=== PATIENT | male | born 1955 | race Caucasian/White ===

== ENCOUNTER 2021-11-11 19:18 | Inpatient (IN) ==
[2021-11-11 19:49] LABS: POC Calcium, Ionized 1.2 (1.16-1.32); POC Creatinine 1.5 (0.6-1.2); POC Potassium 4.4 (3.3-5.1)
[2021-11-11] MEDS ORDERED: SODIUM CHLORIDE 3 % 150 ML IV SCH (20:15)
[2021-11-11] MEDS ORDERED: SODIUM CHLORIDE 3 % 100 ML IV SCH (20:35)
[2021-11-11] MEDS ORDERED: LORazepam 2 MG/ML VIAL IV ONE (20:39)
[2021-11-11] MEDS ORDERED: LORazepam 2 MG/ML VIAL ONE ×2 (20:40→23:45)
[2021-11-11 20:42] LABS: Basophils # (Auto) 0.05 K/mcL (0.00-0.30); Basophils % (Auto) 0.6 % (0.0-2.0); Eosinophils # (Auto) 0.05 K/mcL (0.00-0.70); Eosinophils % (Auto) 0.6 % (0.0-7.0); Hematocrit 31.6 % (40.1-51.0); Hemoglobin 10.5 g/dL (13.7-17.5); Lymphocytes # (Auto) 0.75 K/mcL (1.50-4.80); Lymphocytes % (Auto) 8.7 % (15.5-49.0); Mean Cell Volume 94.9 fL (80.0-100.0); Mean Corpuscular HGB Conc 33.2 g/dL (31.0-36.0); Mean Platelet Volume 9.5 fL (7.4-10.4); Monocytes # (Auto) 1.23 K/mcL (0.10-0.90); Monocytes % (Auto) 14.2 % (1.0-12.0); Neutrophils % (Auto) 75.9 % (38.0-78.0); Platelet Count 259 K/mcL (140-440); RBC 3.33 M/mcL (4.63-6.08); Red Cell Distribution Width 11.9 % (11.5-14.5); WBC 8.7 K/mcL (4.5-11.0)
--- NOTE | 2021-11-11 20:47 | Cat Scan Report ---
INDICATION: fall, AMS, hyponatremia COMPARISON: None. TECHNIQUE: Axial noncontrast-enhanced images through the brain. Sagittally and coronally reformatted images. FINDINGS: Cerebral hemispheres:Negative. No intra-axial abnormality. No intra-axial hematoma. No localized mass effect. There is cerebral atrophy with prominent ventricles for age. Brainstem and cerebellum:No intra-axial abnormality Extra-axial:No acute hemorrhage. No subdural or epidural hematoma. No subarachnoid hemorrhage. Basilar cisterns are normal Calvarial:No calvarial fracture. No lytic lesion Temporal bones are negative. No destructive lesions Soft tissue, orbits, sinuses:Orbits and visualized facial soft tissues and paranasal sinuses are negative IMPRESSION: Negative post trauma brain CT scan The exam was performed using radiation dose optimization techniques including, but not limited to, automated exposure control, adjustment of the mA and/or kV according to patient size and use of iterative reconstruction technique. Interpreted and Authenticated by: Manohar Burciaga 11/11/21
--- NOTE | 2021-11-11 20:51 | Cat Scan Report ---
INDICATION: fall, AMS COMPARISON: None. TECHNIQUE: Axial thin section images through the cervical spine. Sagittally and coronally reformatted images. The exam was performed using radiation dose optimization techniques including, but not limited to, automated exposure control, adjustment of the mA and/or kV according to patient size and use of iterative reconstruction technique. FINDINGS: Previous anterior and posterior spinal fusion from C5 through C7. Anterior dissecting medially and fusion performed with disc spacers at C5-6 and C6-7. There is an anterior fusion plate from C5 through C7. Hardware is intact without fracture. Patient has also undergone posterior spinal fusion bilateral rods and screws Vertebral bodies, spinous processes:No vertebral body or spinous process fracture. No acute abnormality. Alignment is anatomic without anterolisthesis Normal odontoid process. No fracture. Occipital condyles and C1 are negative. No atlantoaxial subluxation. Facets:No perched or locked facet. No facet complex fracture. Disc spaces:Severe degenerative disc narrowing at C7-T1 Temporal bones:Negative. No basilar skull fracture Cervical soft tissues:Negative. No prevertebral soft tissue swelling. No focal soft tissue mass or acute abnormality Lung apices:No pneumothorax. No pulmonary contusion. IMPRESSION: 1. Previous anterior discectomy and spinal fusion from C5 through C7. Bilateral posterior fusion from C5 through C7. 2. Severe degenerative disc disease at C7-T1 3. No cervical spine fracture Interpreted and Authenticated by: Manohar Burciaga 11/11/21
[2021-11-11 20:59] LABS: Alcohol, Blood < 10.0 mg/dL; Alcohol,Blood < 0.010 gm/dL (<0.010)
[2021-11-11 21:07] LABS: Acetaminophen < 5.0 ug/mL; Salicylate < 0.3 mg/dL
[2021-11-11 21:18] LABS: ALT/SGPT 88 U/L (<40); AST/SGOT 89 U/L (<40); Albumin 4.4 gm/dL (3.2-5.2); Albumin/Globulin Ratio 2.1 (1.0-2.3); Alkaline Phosphatase 68 U/L (39-117); Bilirubin,Total 0.8 mg/dL (0.1-1.0); Blood Urea Nitrogen 14 mg/dL (8-23); Calcium 9.8 mg/dL (8.6-10.4); Carbon Dioxide 18 mmol/L (22-30); Chloride 73 mmol/L (96-108); Globulin 2.1 gm/dL (2.2-3.7); Glomerular Filtration Rate 47; Glucose 132 mg/dL (70-105)
--- NOTE | 2021-11-11 21:23 | XRay Report ---
INDICATION: fall, hand injury TECHNIQUE: PA, oblique, lateral right hand COMPARISON: None. FINDINGS: Suboptimal examination as this patient was unable to cooperate. Fractures of the distal right fourth and fifth metacarpals with volar angulation deformity. Chronicity is not certain. Clinical correlation is necessary. There is an intra-articular fracture of the proximal and dorsal aspects of the right fifth middle phalanx. Findings are consistent with acute fracture. IMPRESSION: 1. Chip fracture of the proximal and dorsal aspects of the right fifth middle phalanx 2. Fractures of the right fourth and fifth metacarpals with volar angulation. Chronicity is not certain Interpreted and Authenticated by: Manohar Burciaga 11/11/21
--- NOTE | 2021-11-11 21:24 | XRay Report ---
INDICATION: L shoulder pain TECHNIQUE: AP internal and external rotation, Y views COMPARISON: None. FINDINGS: Superior decentering of the left humeral head consistent with rotator cuff degeneration. No acute fracture. No glenohumeral dislocation. Distal clavicle has been resected consistent with Tyree procedure IMPRESSION: No acute fracture Interpreted and Authenticated by: Manohar Burciaga 11/11/21
[2021-11-11 21:28] LABS: Appearance,Urine CLEAR (Clear); Bilirubin,Urine Negative (Negative); Color,Urine YELLOW; Culture Indicated,Urine No; Glucose,Urine (UA) Negative (Negative); Ketones,Urine 20 mg/dL (Negative); Leukocyte Esterase,Urine 25 /uL (Negative); Nitrate,Urine Negative (Negative); Protein,Urine 100 mg/dL (Negative); Specific Gravity,Urine 1.005 (1.000-1.035); Urine Blood 0.03 mg/dL (Negative); Urine RBC 0 /hpf (0-3); Urine Squamous Epithelial Cell 0 /hpf (0-4); Urine WBC 5 /hpf (0-4); Urobilinogen,Urine Negative
[2021-11-11 21:33] LABS: Amphetamine Screen,Urine None detected; Barbiturate Screen,Urine None detected; Benzodiazepines Screen,Urine None detected; Cannabinoid Screen,Urine Suspect Positive; Cocaine Screen,Urine None detected; Opiate Screen,Urine None detected; Oxycodone, Urine Screen None detected; Phencyclidine Screen,Urine None detected
[2021-11-11] MEDS ORDERED: SENNOSIDES 1 TABLET PO PRN (21:35)
[2021-11-11] MEDS ORDERED: ONDANSETRON 4 MG/2 ML VIAL IV PRN (21:35)
--- NOTE | 2021-11-11 21:48 | Internal Med History&Physical ---
HPI History of Present Illness Patient information: Note initiated : 11/11/21 at 9:42 pm Service Date, if different from initiated Date: [as sabove] Patient: Isaac Russo a 66 y/o M admitted on for falls, weakness. Chief Complaint: [ALOC] Chief complaint: Encephalopathy History of present illness: Mr. Russo is a 66 year old M with a past medical history significant for chronic opioid use disorder, suspected alcohol abuse, hypertension, and obstructive lung disease who presents to the hospital with 1 month history of weakness and multiple falls. History was obtained secondhand from chart review, nursing and ER staff as the patient was somnolent and his speech was unintelligible. There was also concerns that he may have alcohol withdrawal and had 2 seizures while he presented to the ER. On presentation he was hemodynamically stable and afebrile. Of note, he was found to have a critical sodium of 113. The patient's creatinine was 1.3. The hospitalist service was asked admit the patient to the ICU for further management and evaluation of his suspected alcohol withdrawal in the setting of severe hyponatremia. Review of Systems ROS unobtainable: due to mental status PFSH PFSH All Active Problems (Updated 11/11/21 @ 21:46 by Altagracia Baez MD) BAMBI (acute kidney injury) (Acute) Lactic acidosis (Acute) Toxic metabolic encephalopathy (Acute) Acute dehydration (Acute) Acute hyponatremia (Acute) Seizure (Acute) Acute alteration in mental status (Acute) [facility] prescription opiate use (Chronic) Opioid dependence (Chronic) Chronic pain (Chronic) Primary generalized (osteo)arthritis (Chronic) Monoclonal gammopathy (Chronic) Abdominal hernia (Chronic) Mixed hyperlipidemia (Chronic) Dermatitis, seborrheic (Chronic) Deviated nasal septum (Chronic) Edema (Chronic) Shoulder pain, bilateral (Chronic) Left lumbar radiculopathy (Chronic) Right cervical radiculopathy (Chronic) Cramp of limb (Chronic) Rib pain on left side (Chronic) Elevated d-dimer (Chronic) Anemia (Chronic) Hyponatremia (Chronic) Elevated troponin (Chronic) Near syncope (Chronic) Depressed mood (Chronic) Lumbar post-laminectomy syndrome (Chronic) Low back pain (Chronic) Hypomagnesemia (Chronic) Vitamin D deficiency (Chronic) Benign prostatic hyperplasia without lower urinary tract symptoms (Chronic) Generalized anxiety disorder (Chronic) Alcohol abuse (Chronic) Mild recurrent major depression (Chronic) Pain in right leg (Chronic) Chronic kidney disease, stage 3 (moderate) (Chronic) 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) Tinea capitis (Chronic) Numbness and tingling of both upper extremities while sleeping (Chronic) Neck pain (Chronic) Interscapular pain (Chronic) Internal thrombosed hemorrhoids (Chronic) Disorder of tendon of biceps (Chronic) Disorder of rotator cuff (Chronic) Constipation (Chronic) Cervical radicular pain (Chronic) 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) Spinal stenosis in cervical region (Chronic) Stomach ulcer (Chronic) Hypertension, essential (Chronic) Asthma (Chronic) Acid reflux (Chronic) Medical History (Updated 11/11/21 @ 21:46 by Altagracia Baez MD) Abdominal hernia Acid reflux 1996 Alcohol abuse Anemia Arthropathy of shoulder region Asthma Since 4 years old Benign prostatic hyperplasia without lower urinary tract symptoms Cervical fusion syndrome Cervical radicular pain Chronic kidney disease, stage 3 (moderate) Chronic pain Constipation Cramp of limb Depressed mood Dermatitis, seborrheic Deviated nasal septum Disorder of rotator cuff Disorder of tendon of biceps Edema Elevated d-dimer Elevated troponin Generalized anxiety disorder Hypertension, essential Hypomagnesemia Hyponatremia Internal thrombosed hemorrhoids Interscapular pain Left lumbar radiculopathy manager long term care prescription opiate use Low back pain Lumbar post-laminectomy syndrome Mild recurrent major depression Mixed hyperlipidemia Monoclonal gammopathy Near syncope Neck pain Numbness and tingling of both upper extremities while sleeping Opioid dependence Pain in right leg Primary generalized (osteo)arthritis Rib pain on left side Right cervical radiculopathy Shoulder pain, bilateral Spinal stenosis in cervical region Stenosis of cervical spine with myelopathy Stomach ulcer Tinea capitis Vitamin D deficiency Surgical History H/O colonoscopy 11/2012 Dr. Luan STEV[place] in [place] H/O laminectomy 04/1979 L4-5 due to paralysis/pain left leg 02/1989 L4-5 due to paralysis left leg-recurred 07/1992 L4-5 successful in relieving pain H/O shoulder surgery 07/2013 Left shoulder rebuild-PT was too aggressive in early part of recovery and so surgery was not successful. History of carpal tunnel surgery Right x 2 History of gastric surgery 1996 Successful removal of pyloric obstruction since Hx of cervical spine surgery 11/2014 C5, C6, C7 wired in cage. Still has right arm/hand pain and right arm/hand atrophy. Can't use right hand. Family History Father Liver cancer Pancreas cancer Mother Migraines Depression Sister Depression Social History marital status: alcohol intake frequency: a few times a week substance use type: does not use MEDS/ALLERGIES Home Medications and Allergies Home Medications Medication Instructions Recorded Confirmed Type albuterol sulfate 90 mcg/actuation 2 puff INHALATION QDAY #18 g 03/27/16 09/24/21 Rx aerosol inhaler (Ventolin HFA) tamsulosin 0.4 mg capsule (Flomax) 0.4 mg PO QDAY #90 cap 08/19/17 09/24/21 Rx oxycodone 10 mg tablet 10 mg PO Q6H PRN #112 tab MDD 4 10/22/17 09/24/21 Rx times daily budesonide-formoterol HFA 80 2 puff INHALATION BID 09/20/19 09/24/21 History mcg-4.5 mcg/actuation aerosol inhaler bupropion HCl 150 mg 24 hr tablet, 150 mg PO QAM 09/20/19 09/24/21 History extended release buspirone 10 mg tablet 10 mg PO BID 09/20/19 09/24/21 History hydroxyzine HCl 25 mg tablet 25 mg PO QHS PRN 09/20/19 09/24/21 History ketoconazole 2 % shampoo 1 applic TOPICAL Q OTHER DAY ml 09/20/19 09/24/21 History ipratropium 20 mcg-albuterol 100 1 puff INHALATION Q6H #4 g 09/24/21 09/24/21 Rx mcg/actuation mist for inhalation (Combivent Respimat) Allergies Allergy/AdvReac Type Severity Reaction Status Date / Time amitriptyline Allergy Unknown Unknown Verified 11/11/21 19:19 amlodipine Allergy Unknown Unknown Verified 11/11/21 19:19 gabapentin Allergy Unknown Unknown Verified 11/11/21 19:19 ketorolac [From Toradol] Allergy Unknown Rash Verified 11/11/21 19:19 NSAIDS (Non-Steroidal Allergy Unknown Unknown Verified 11/11/21 19:19 Anti-Inflamma olmesartan [From Benicar] Allergy Unknown Angioedema Verified 11/11/21 19:19 pregabalin [From Lyrica] Allergy Unknown Right hand Verified 11/11/21 19:19 shakes, feels weak tetracaine Allergy Unknown Unknown Verified 11/11/21 19:19 tetracycline [Tetracycline] Allergy Unknown Rash Verified 11/11/21 19:19 tramadol Allergy Unknown Unknown Verified 11/11/21 19:19 wool Allergy Unknown Itching Verified 11/11/21 19:19 lisinopril AdvReac Unknown Unknown Verified 11/11/21 19:19 Cats Allergy Mild Sneezing, Uncoded 09/24/21 13:44 itching, difficulty breathing dust Allergy Unknown Difficulty Uncoded 09/24/21 13:44 Breathing EXAM Constitutional Vitals: Temp Pulse Resp BP Pulse Ox 97.9 F 85 16 165/95 99 11/11/21 19:19 11/11/21 20:52 11/11/21 20:52 11/11/21 20:42 11/11/21 20:52 General appearance: average body habitus Head Head exam: Present atraumatic, normal inspection and normocephalic Eye Eye exam: Present EOMI, normal appearance and PERRL; Absent conjunctival injection ENT ENT exam: Present mucous membranes dry and normal exam Neck Neck exam: Present full ROM; Absent lymphadenopathy Respiratory Respiratory exam: Present normal respiratory exam and CTAB; Absent decreased breath sounds, respiratory distress or wheezes Cardiovascular Cardiovascular exam: Present normal rate and rhythm and RRR; Absent JVD GI/Abdominal GI/Abdominal exam: Present normal bowel sounds and soft; Absent diminished bowel sounds, distended, guarding, mass, rebound or tenderness Neurological Exam Neurological exam: Present altered Psychiatric Psychiatric exam: Present normal affect and normal mood Skin Skin exam: Present intact and warm; Absent erythema, pallor, petechiae or rash DATA Data Completed and Pending Labs: Labs from last 24 hours 11/11/21 11/11/21 11/11/21 20:13 20:13 20:00 WBC RBC Hgb Hct POC Hct MCV MCH MCHC RDW Plt Count MPV Neut % (Auto) Lymph % (Auto) [place] % (Auto) Eos % (Auto) Baso % (Auto) Lymph # (Auto) [place] # (Auto) Eos # (Auto) Baso # (Auto) Absolute Neutrophils POC Sodium Sodium POC Potassium Potassium POC Chloride Chloride Carbon Dioxide POC Total CO2 Anion Gap POC BUN BUN Creatinine POC Creatinine GFR Calculation Glucose POC Glucose Osmolality Calcium POC WB Ioniz Calcium Magnesium Total Bilirubin AST ALT Alkaline Phosphatase Total Protein Albumin Globulin Albumin/Globulin Ratio Urine Color Yellow Urine Appearance Clear Urine pH 7.0 Ur Specific [place] 1.005 Urine Protein 100 A Urine Glucose (UA) Negative Urine Ketones 20 A Urine Occult Blood 0.03 Urine Nitrate Negative Urine Bilirubin Negative Urine Urobilinogen Negative Ur Leukocyte Esterase 25 A Urine RBC 0 Urine WBC 5 H Ur Squamous Epith Cells 0 Urine Bacteria None Ur Culture Indicated? No Salicylates Urine Opiates Screen None detected Ur Opiates Confirm TNP Ur Oxycodone Screen None detected Urine Methadone Screen None detected Ur Methadone Confirm TNP Acetaminophen Ur Barbiturates Screen None detected Ur Barbiturate Confirm TNP Ur Phencyclidine Scrn None detected Urine PCP Confirm TNP Ur Amphetamines Screen None detected U Amphetamines Confirm TNP U Benzodiazepines Scrn None detected Ur Benzodiazepine, Qnt TNP Urine Cocaine Screen None detected Urine Cocaine Confirm TNP U Cannabinoids Confirm Pending U Marijuana (THC) Screen Suspect positive A Ethyl Alcohol < 0.010 POC Troponin I 11/11/21 11/11/21 11/11/21 20:00 20:00 20:00 WBC RBC Hgb Hct POC Hct MCV MCH MCHC RDW Plt Count MPV Neut % (Auto) Lymph % (Auto) [place] % (Auto) Eos % (Auto) Baso % (Auto) Lymph # (Auto) [place] # (Auto) Eos # (Auto) Baso # (Auto) Absolute Neutrophils POC Sodium Sodium 113 L* POC Potassium Potassium 4.5 POC Chloride Chloride 73 L Carbon Dioxide 18 L POC Total CO2 Anion Gap 22.0 H POC BUN BUN 14 Creatinine 1.5 H POC Creatinine GFR Calculation 47 Glucose 132 H POC Glucose Osmolality 245 L Calcium 9.8 POC WB Ioniz Calcium Magnesium 1.5 L Total Bilirubin 0.8 AST 89 H ALT 88 H Alkaline Phosphatase 68 Total Protein 6.5 Albumin 4.4 Globulin 2.1 L Albumin/Globulin Ratio 2.1 Urine Color Urine Appearance Urine pH Ur Specific [place] Urine Protein Urine Glucose (UA) Urine Ketones Urine Occult Blood Urine Nitrate Urine Bilirubin Urine Urobilinogen Ur Leukocyte Esterase Urine RBC Urine WBC Ur Squamous Epith Cells Urine Bacteria Ur Culture Indicated? Salicylates < 0.3 Urine Opiates Screen Ur Opiates Confirm Ur Oxycodone Screen Urine Methadone Screen Ur Methadone Confirm Acetaminophen < 5.0 Ur Barbiturates Screen Ur Barbiturate Confirm Ur Phencyclidine Scrn Urine PCP Confirm Ur Amphetamines Screen U Amphetamines Confirm U Benzodiazepines Scrn Ur Benzodiazepine, Qnt Urine Cocaine Screen Urine Cocaine Confirm U Cannabinoids Confirm U Marijuana (THC) Screen Ethyl Alcohol POC Troponin I 11/11/21 11/11/21 11/11/21 20:00 19:48 19:48 WBC 8.7 RBC 3.33 L Hgb 10.5 L Hct 31.6 L POC Hct 36.0 L MCV 94.9 MCH 31.5 MCHC 33.2 RDW 11.9 Plt Count 259 MPV 9.5 Neut % (Auto) 75.9 Lymph % (Auto) 8.7 L Pett[place] % (Auto) 14.2 H Eos % (Auto) 0.6 Baso % (Auto) 0.6 Lymph # (Auto) 0.75 L [place] # (Auto) 1.23 H Eos # (Auto) 0.05 Baso # (Auto) 0.05 Absolute Neutrophils 6.59 POC Sodium 114 L* Sodium POC Potassium 4.4 Potassium POC Chloride 76 L Chloride Carbon Dioxide POC Total CO2 21.0 L Anion Gap POC BUN 19 BUN Creatinine POC Creatinine 1.5 H GFR Calculation Glucose POC Glucose 121 H Osmolality Calcium POC WB Ioniz Calcium 1.20 Magnesium Total Bilirubin AST ALT Alkaline Phosphatase Total Protein Albumin Globulin Albumin/Globulin Ratio Urine Color Urine Appearance Urine pH Ur Specific [place] Urine Protein Urine Glucose (UA) Urine Ketones Urine Occult Blood Urine Nitrate Urine Bilirubin Urine Urobilinogen Ur Leukocyte Esterase Urine RBC Urine WBC Ur Squamous Epith Cells Urine Bacteria Ur Culture Indicated? Salicylates Urine Opiates Screen Ur Opiates Confirm Ur Oxycodone Screen Urine Methadone Screen Ur Methadone Confirm Acetaminophen Ur Barbiturates Screen Ur Barbiturate Confirm Ur Phencyclidine Scrn Urine PCP Confirm Ur Amphetamines Screen U Amphetamines Confirm U Benzodiazepines Scrn Ur Benzodiazepine, Qnt Urine Cocaine Screen Urine Cocaine Confirm U Cannabinoids Confirm U Marijuana (THC) Screen Ethyl Alcohol POC Troponin I 0.02 A/P Assessment and plan (1) Acute hyponatremia: Status: Acute (2) Seizure: Status: Acute (3) Toxic metabolic encephalopathy: Status: Acute (4) Lactic acidosis: Status: Acute (5) BAMBI (acute kidney injury): Status: Acute Narrative A/P Narrative: The patient's clinical presentation is concerning for seizures due to possible alcohol withdrawal versus severe electrolyte derangements. He will need to be admitted to the ICU for close monitoring. Plan of Treatment: The patient will be started on normal saline under 25 cc an hour rather than hypertonic saline for suspected beer potomania as his hypovolemia is likely hypovolemic in etiology. We will obtain urine sodium and urine osmolality as well as serum osmolality. We will monitor his sodium every 4 hours. At this point, he will also be placed on CIWA protocol for suspected alcohol withdrawal. Time Spent With Patient Time: Total time spent is greater than 50% in coordination of care (as documented) at patient's floor/unit and/or counseling patient: Total time spent with greater than 50% in coordination of care (as documented) at patient's floor/unit and/or counseling patient:: 50 - 70 minutes
--- NOTE | 2021-11-11 22:02 | Emergency Department Note ---
HPI General Chief complaint: Weakness Stated complaint: falls, weakness Time Seen by Provider: 11/11/21 19:58 Source: patient Mode of arrival: wheelchair History of Present Illness HPI Narrative: Narrative: 66-year-old male history of alcohol abuse, some CKD, opiate use, chronic pain presented to the ED with generalized weakness falls and right hand he was triaged as right hand pain, neighbor apparently saw him fall and brought him to the ER. Was initially triaged and put in the waiting room momentarily however staff noticed he seemed to syncopize so they immediately brought him back. Upon my initial evaluation patient seems confused or possibly postictal really cannot get any degree of detailed history from him, he knows his name. He has obvious bruise to his right hand and pain to his left shoulder. Otherwise no obvious lateralizing deficits. Further history details unobtainable, did review chart as well Related Data Home Medications Medication Instructions Recorded Confirmed budesonide-formoterol HFA 80 2 puff INHALATION BID 09/20/19 09/24/21 mcg-4.5 mcg/actuation aerosol inhaler bupropion HCl 150 mg 24 hr tablet, 150 mg PO QAM 09/20/19 09/24/21 extended release buspirone 10 mg tablet 10 mg PO BID 09/20/19 09/24/21 hydroxyzine HCl 25 mg tablet 25 mg PO QHS PRN 09/20/19 09/24/21 ketoconazole 2 % shampoo 1 applic TOPICAL Q OTHER DAY ml 09/20/19 09/24/21 Previous Rx's Medication Instructions Recorded albuterol sulfate 90 mcg/actuation 2 puff INHALATION QDAY #18 g 03/27/16 aerosol inhaler (Ventolin HFA) tamsulosin 0.4 mg capsule (Flomax) 0.4 mg PO QDAY #90 cap 08/19/17 oxycodone 10 mg tablet 10 mg PO Q6H PRN #112 tab MDD 4 10/22/17 times daily ipratropium 20 mcg-albuterol 100 1 puff INHALATION Q6H #4 g 09/24/21 mcg/actuation mist for inhalation (Combivent Respimat) Allergies Allergy/AdvReac Type Severity Reaction Status Date / Time amitriptyline Allergy Unknown Unknown Verified 11/11/21 19:19 amlodipine Allergy Unknown Unknown Verified 11/11/21 19:19 gabapentin Allergy Unknown Unknown Verified 11/11/21 19:19 ketorolac [From Toradol] Allergy Unknown Rash Verified 11/11/21 19:19 NSAIDS (Non-Steroidal Allergy Unknown Unknown Verified 11/11/21 19:19 Anti-Inflamma olmesartan [From Benicar] Allergy Unknown Angioedema Verified 11/11/21 19:19 pregabalin [From Lyrica] Allergy Unknown Right hand Verified 11/11/21 19:19 shakes, feels weak tetracaine Allergy Unknown Unknown Verified 11/11/21 19:19 tetracycline [Tetracycline] Allergy Unknown Rash Verified 11/11/21 19:19 tramadol Allergy Unknown Unknown Verified 11/11/21 19:19 wool Allergy Unknown Itching Verified 11/11/21 19:19 lisinopril AdvReac Unknown Unknown Verified 11/11/21 19:19 Cats Allergy Mild Sneezing, Uncoded 09/24/21 13:44 itching, difficulty breathing dust Allergy Unknown Difficulty Uncoded 09/24/21 13:44 Breathing Review of Systems ROS ROS Narrative: Narrative: Unobtainable given mental status PFSH Narrative Patient History Narrative: Narrative: Medical/Surgical/Family History All Active Problems (Updated 11/11/21 @ 22:03 by Mekhi Naranjo DO) Acute metabolic encephalopathy (Acute) BAMBI (acute kidney injury) (Acute) Lactic acidosis (Acute) Toxic metabolic encephalopathy (Acute) Acute dehydration (Acute) Acute hyponatremia (Acute) Seizure (Acute) Acute alteration in mental status (Acute) alf prescription opiate use (Chronic) Opioid dependence (Chronic) Chronic pain (Chronic) Primary generalized (osteo)arthritis (Chronic) Monoclonal gammopathy (Chronic) Abdominal hernia (Chronic) Mixed hyperlipidemia (Chronic) Dermatitis, seborrheic (Chronic) Deviated nasal septum (Chronic) Edema (Chronic) Shoulder pain, bilateral (Chronic) Left lumbar radiculopathy (Chronic) Right cervical radiculopathy (Chronic) Cramp of limb (Chronic) Rib pain on left side (Chronic) Elevated d-dimer (Chronic) Anemia (Chronic) Hyponatremia (Chronic) Elevated troponin (Chronic) Near syncope (Chronic) Depressed mood (Chronic) Lumbar post-laminectomy syndrome (Chronic) Low back pain (Chronic) Hypomagnesemia (Chronic) Vitamin D deficiency (Chronic) Benign prostatic hyperplasia without lower urinary tract symptoms (Chronic) Generalized anxiety disorder (Chronic) Alcohol abuse (Chronic) Mild recurrent major depression (Chronic) Pain in right leg (Chronic) Chronic kidney disease, stage 3 (moderate) (Chronic) 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) Tinea capitis (Chronic) Numbness and tingling of both upper extremities while sleeping (Chronic) Neck pain (Chronic) Interscapular pain (Chronic) Internal thrombosed hemorrhoids (Chronic) Disorder of tendon of biceps (Chronic) Disorder of rotator cuff (Chronic) Constipation (Chronic) Cervical radicular pain (Chronic) 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) Spinal stenosis in cervical region (Chronic) Stomach ulcer (Chronic) Hypertension, essential (Chronic) Asthma (Chronic) Acid reflux (Chronic) Medical History (Updated 11/11/21 @ 22:03 by Mekhi Naranjo DO) Abdominal hernia Acid reflux 1996 Alcohol abuse Anemia Arthropathy of shoulder region Asthma Since 4 years old Benign prostatic hyperplasia without lower urinary tract symptoms Cervical fusion syndrome Cervical radicular pain Chronic kidney disease, stage 3 (moderate) Chronic pain Constipation Cramp of limb Depressed mood Dermatitis, seborrheic Deviated nasal septum Disorder of rotator cuff Disorder of tendon of biceps Edema Elevated d-dimer Elevated troponin Generalized anxiety disorder Hypertension, essential Hypomagnesemia Hyponatremia Internal thrombosed hemorrhoids Interscapular pain Left lumbar radiculopathy alf prescription opiate use Low back pain Lumbar post-laminectomy syndrome Mild recurrent major depression Mixed hyperlipidemia Monoclonal gammopathy Near syncope Neck pain Numbness and tingling of both upper extremities while sleeping Opioid dependence Pain in right leg Primary generalized (osteo)arthritis Rib pain on left side Right cervical radiculopathy Shoulder pain, bilateral Spinal stenosis in cervical region Stenosis of cervical spine with myelopathy Stomach ulcer Tinea capitis Vitamin D deficiency Surgical History H/O colonoscopy 11/2012 Dr. Luan [place] in [place] H/O laminectomy 04/1979 L4-5 due to paralysis/pain left leg 02/1989 L4-5 due to paralysis left leg-recurred 07/1992 L4-5 successful in relieving pain H/O shoulder surgery 07/2013 Left shoulder rebuild-PT was too aggressive in early part of recovery and so surgery was not successful. History of carpal tunnel surgery Right x 2 History of gastric surgery 1996 Successful removal of pyloric obstruction since Hx of cervical spine surgery 11/2014 C5, C6, C7 wired in cage. Still has right arm/hand pain and right arm/hand atrophy. Can't use right hand. Family History Father Liver cancer Pancreas cancer Mother Migraines Depression Sister Depression Social History Smoking Status: Never smoker Alcohol Intake Frequency: a few times a week Substance Use: does not use Exam Narrative Narrative: Narrative: constitutional: normally developed, overall ill-appearing confused encephalopathic Head: Normocephalic, atraumatic, Eyes: No Icterus, ENT: Dry mucus membranes, Neck: Supple, Cardiac: Normal heart sounds, palpable radial pulses, no peripheral edema Pulmonary: Normal respiratory effort. Breath sounds clear, no wheeze, rhonchi, rales, Gastrointestinal: Abdomen soft, non-distended, non-tender, Musculoskeletal: No gross deformities, well perfused Skin: warm, dry Neuro: Alert and oriented x self only Face symmetric, PERRLA, EOMI, visual jones intact to threat, withdraws to pain briskly and localizes in all extremities. Overall has some generalized weakness but no obvious lateralizing deficits. Detailed testing unobtainable as patient is very confused. Speech garbled Course Vital Signs Vital signs: Vital Signs Temperature 36.6 C 11/11/21 19:19 Pulse Rate 62 11/11/21 19:19 Respiratory Rate 18 11/11/21 19:19 Blood Pressure 183/107 11/11/21 19:19 Pulse Oximetry (%) 99 11/11/21 19:19 Temperature 36.6 C 11/11/21 19:19 Pulse Rate 85 11/11/21 20:52 Respiratory Rate 16 11/11/21 20:52 Blood Pressure 165/95 11/11/21 20:42 Pulse Oximetry (%) 99 11/11/21 20:52 [facility] MDM Narrative Medical decision making narrative: Narrative: 66-year-old presenting for apparently multiple falls over some time possibly syncope or seizure, on my initial evaluation he is very confused or possibly postictal last known well is unknown no lateralizing symptoms but roni ears encephalopathic. Does not meet any stroke code criteria. Work-up is initiated [id number] electrolytes do show a profound hyponatremia of 114, hypochloremia 76 creatinine 1.5 and a glucose of 121 Given his neurologic symptoms in the setting of severe hyponatremia we will order him some hypertonic 3% saline Just prior to initiating the saline he did have a witnessed seizure. Was given 2 of Ativan and did give him 100 mL of 3% saline over 10 minutes. No further seizure activity and mental status is slowly improved Osmolality is low to 45 No acute findings on CT head or C-spine or left shoulder, right hand x-ray shows some fractures although chronicity is unknown we will place him in a splint Further labs pending I spoke with the hospitalist for admission to ICU for patient's severe hyponatremia with seizures as well as concern he could have some alcohol withdrawal. He is agreeable to accept Critical Care Time Total CriticalCare time was at least 45 minutes, excluding separately reportable procedures. There was a high probability of clinically significant/life threatening deterioration in the patient's condition which required my urgent intervention. Lab Data Result diagrams: 11/11/21 20:00 11/11/21 20:00 Labs: Lab Results 11/11/21 11/11/21 11/11/21 Range/Units 19:48 19:48 20:00 WBC 8.7 (4.5-11.0) K/mcL RBC 3.33 L (4.63-6.08) M/mcL Hgb 10.5 L (13.7-17.5) g/dL Hct 31.6 L (40.1-51.0) % POC Hct 36.0 L (41-55) MCV 94.9 (80.0-100.0) fL MCH 31.5 (26.0-34.0) pg MCHC 33.2 (31.0-36.0) g/dL RDW 11.9 (11.5-14.5) % Plt Count 259 (140-440) K/mcL MPV 9.5 (7.4-10.4) fL Neut % (Auto) 75.9 (38.0-78.0) % Lymph % (Auto) 8.7 L (15.5-49.0) % [place] % (Auto) 14.2 H (1.0-12.0) % Eos % (Auto) 0.6 (0.0-7.0) % Baso % (Auto) 0.6 (0.0-2.0) % Lymph # (Auto) 0.75 L (1.50-4.80) K/mcL [place] # (Auto) 1.23 H (0.10-0.90) K/mcL Eos # (Auto) 0.05 (0.00-0.70) K/mcL Baso # (Auto) 0.05 (0.00-0.30) K/mcL Absolute Neutrophils 6.59 (1.80-8.00) K/mcL POC Sodium 114 L* (133-145) Sodium (133-145) mmol/L POC Potassium 4.4 (3.3-5.1) Potassium (3.3-5.1) mmol/L POC Chloride 76 L (96-108) Chloride (96-108) mmol/L Carbon Dioxide (22-30) mmol/L POC Total CO2 21.0 L (22-30) Anion Gap (8.0-16.0) POC BUN 19 (6-20) BUN (8-23) mg/dL Creatinine (0.7-1.2) mg/dL POC Creatinine 1.5 H (0.6-1.2) GFR Calculation Glucose (70-105) mg/dL POC Glucose 121 H (70-105) Osmolality (280-300) mOSM/kg Calcium (8.6-10.4) mg/dL POC WB Ioniz Calcium 1.20 (1.16-1.32) Magnesium (1.6-2.5) mg/dL Total Bilirubin (0.1-1.0) mg/dL AST (<40) U/L ALT (<40) U/L Alkaline Phosphatase (39-117) U/L Total Protein (5.9-8.4) gm/dL Albumin (3.2-5.2) gm/dL Globulin (2.2-3.7) gm/dL Albumin/Globulin Ratio (1.0-2.3) Urine Color Urine Appearance (Clear) Urine pH (5.0-9.0) Ur Specific [place] (1.000-1.035) Urine Protein (Negative) mg/dL Urine Glucose (UA) (Negative) mg/dL Urine Ketones (Negative) mg/dL Urine Occult Blood (Negative) mg/dL Urine Nitrate (Negative) Urine Bilirubin (Negative) mg/dL Urine Urobilinogen mg/dL Ur Leukocyte Esterase (Negative) /uL Urine RBC (0-3) /hpf Urine WBC (0-4) /hpf Ur Squamous Epith Cells (0-4) /hpf Urine Bacteria (0) /hpf Ur Culture Indicated? Salicylates mg/dL Urine Opiates Screen Ur Opiates Confirm Ur Oxycodone Screen Urine Methadone Screen Ur Methadone Confirm Acetaminophen ug/mL Ur Barbiturates Screen Ur Barbiturate Confirm Ur Phencyclidine Scrn Urine PCP Confirm Ur Amphetamines Screen U Amphetamines Confirm U Benzodiazepines Scrn Ur Benzodiazepine, Qnt Urine Cocaine Screen Urine Cocaine Confirm U Marijuana (THC) Screen Ethyl Alcohol (<0.010) gm/dL POC Troponin I 0.02 (0.02-0.08) 11/11/21 11/11/21 11/11/21 Range/Units 20:00 20:00 20:00 WBC (4.5-11.0) K/mcL RBC (4.63-6.08) M/mcL Hgb (13.7-17.5) g/dL Hct (40.1-51.0) % POC Hct (41-55) MCV (80.0-100.0) fL MCH (26.0-34.0) pg MCHC (31.0-36.0) g/dL RDW (11.5-14.5) % Plt Count (140-440) K/mcL MPV (7.4-10.4) fL Neut % (Auto) (38.0-78.0) % Lymph % (Auto) (15.5-49.0) % [place] % (Auto) (1.0-12.0) % Eos % (Auto) (0.0-7.0) % Baso % (Auto) (0.0-2.0) % Lymph # (Auto) (1.50-4.80) K/mcL [place] # (Auto) (0.10-0.90) K/mcL Eos # (Auto) (0.00-0.70) K/mcL Baso # (Auto) (0.00-0.30) K/mcL Absolute Neutrophils (1.80-8.00) K/mcL POC Sodium (133-145) Sodium 113 L* (133-145) mmol/L POC Potassium (3.3-5.1) Potassium 4.5 (3.3-5.1) mmol/L POC Chloride (96-108) Chloride 73 L (96-108) mmol/L Carbon Dioxide 18 L (22-30) mmol/L POC Total CO2 (22-30) Anion Gap 22.0 H (8.0-16.0) POC BUN (6-20) BUN 14 (8-23) mg/dL Creatinine 1.5 H (0.7-1.2) mg/dL POC Creatinine (0.6-1.2) GFR Calculation 47 Glucose 132 H (70-105) mg/dL POC Glucose (70-105) Osmolality 245 L (280-300) mOSM/kg Calcium 9.8 (8.6-10.4) mg/dL POC WB Ioniz Calcium (1.16-1.32) Magnesium 1.5 L (1.6-2.5) mg/dL Total Bilirubin 0.8 (0.1-1.0) mg/dL AST 89 H (<40) U/L ALT 88 H (<40) U/L Alkaline Phosphatase 68 (39-117) U/L Total Protein 6.5 (5.9-8.4) gm/dL Albumin 4.4 (3.2-5.2) gm/dL Globulin 2.1 L (2.2-3.7) gm/dL Albumin/Globulin Ratio 2.1 (1.0-2.3) Urine Color Urine Appearance (Clear) Urine pH (5.0-9.0) Ur Specific [place] (1.000-1.035) Urine Protein (Negative) mg/dL Urine Glucose (UA) (Negative) mg/dL Urine Ketones (Negative) mg/dL Urine Occult Blood (Negative) mg/dL Urine Nitrate (Negative) Urine Bilirubin (Negative) mg/dL Urine Urobilinogen mg/dL Ur Leukocyte Esterase (Negative) /uL Urine RBC (0-3) /hpf Urine WBC (0-4) /hpf Ur Squamous Epith Cells (0-4) /hpf Urine Bacteria (0) /hpf Ur Culture Indicated? Salicylates < 0.3 mg/dL Urine Opiates Screen Ur Opiates Confirm Ur Oxycodone Screen Urine Methadone Screen Ur Methadone Confirm Acetaminophen < 5.0 ug/mL Ur Barbiturates Screen Ur Barbiturate Confirm Ur Phencyclidine Scrn Urine PCP Confirm Ur Amphetamines Screen U Amphetamines Confirm U Benzodiazepines Scrn Ur Benzodiazepine, Qnt Urine Cocaine Screen Urine Cocaine Confirm U Marijuana (THC) Screen Ethyl Alcohol (<0.010) gm/dL POC Troponin I (0.02-0.08) 11/11/21 11/11/21 11/11/21 Range/Units 20:00 20:13 20:13 WBC (4.5-11.0) K/mcL RBC (4.63-6.08) M/mcL Hgb (13.7-17.5) g/dL Hct (40.1-51.0) % POC Hct (41-55) MCV (80.0-100.0) fL MCH (26.0-34.0) pg MCHC (31.0-36.0) g/dL RDW (11.5-14.5) % Plt Count (140-440) K/mcL MPV (7.4-10.4) fL Neut % (Auto) (38.0-78.0) % Lymph % (Auto) (15.5-49.0) % [place] % (Auto) (1.0-12.0) % Eos % (Auto) (0.0-7.0) % Baso % (Auto) (0.0-2.0) % Lymph # (Auto) (1.50-4.80) K/mcL [place] # (Auto) (0.10-0.90) K/mcL Eos # (Auto) (0.00-0.70) K/mcL Baso # (Auto) (0.00-0.30) K/mcL Absolute Neutrophils (1.80-8.00) K/mcL POC Sodium (133-145) Sodium (133-145) mmol/L POC Potassium (3.3-5.1) Potassium (3.3-5.1) mmol/L POC Chloride (96-108) Chloride (96-108) mmol/L Carbon Dioxide (22-30) mmol/L POC Total CO2 (22-30) Anion Gap (8.0-16.0) POC BUN (6-20) BUN (8-23) mg/dL Creatinine (0.7-1.2) mg/dL POC Creatinine (0.6-1.2) GFR Calculation Glucose (70-105) mg/dL POC Glucose (70-105) Osmolality (280-300) mOSM/kg Calcium (8.6-10.4) mg/dL POC WB Ioniz Calcium (1.16-1.32) Magnesium (1.6-2.5) mg/dL Total Bilirubin (0.1-1.0) mg/dL AST (<40) U/L ALT (<40) U/L Alkaline Phosphatase (39-117) U/L Total Protein (5.9-8.4) gm/dL Albumin (3.2-5.2) gm/dL Globulin (2.2-3.7) gm/dL Albumin/Globulin Ratio (1.0-2.3) Urine Color Yellow Urine Appearance Clear (Clear) Urine pH 7.0 (5.0-9.0) Ur Specific [place] 1.005 (1.000-1.035) Urine Protein 100 A (Negative) mg/dL Urine Glucose (UA) Negative (Negative) mg/dL Urine Ketones 20 A (Negative) mg/dL Urine Occult Blood 0.03 (Negative) mg/dL Urine Nitrate Negative (Negative) Urine Bilirubin Negative (Negative) mg/dL Urine Urobilinogen Negative mg/dL Ur Leukocyte Esterase 25 A (Negative) /uL Urine RBC 0 (0-3) /hpf Urine WBC 5 H (0-4) /hpf Ur Squamous Epith Cells 0 (0-4) /hpf Urine Bacteria None (0) /hpf Ur Culture Indicated? No Salicylates mg/dL Urine Opiates Screen None detected Ur Opiates Confirm TNP Ur Oxycodone Screen None detected Urine Methadone Screen None detected Ur Methadone Confirm TNP Acetaminophen ug/mL Ur Barbiturates Screen None detected Ur Barbiturate Confirm TNP Ur Phencyclidine Scrn None detected Urine PCP Confirm TNP Ur Amphetamines Screen None detected U Amphetamines Confirm TNP U Benzodiazepines Scrn None detected Ur Benzodiazepine, Qnt TNP Urine Cocaine Screen None detected Urine Cocaine Confirm TNP U Marijuana (THC) Screen Suspect positive A Ethyl Alcohol < 0.010 (<0.010) gm/dL POC Troponin I (0.02-0.08) Discharge Plan Patient/Caregiver Discharge Instructions Pt seen by FLY MAKER/PA only: No Clinical Impression: Acute hyponatremia, Seizure, Acute alteration in mental status, Acute metabolic encephalopathy Patient Disposition: Xfer As Inpt ([facility]) Condition: Critical Follow up with: No,PCP [Primary Care Provider] - Prescriptions: No Action tamsulosin [Flomax] 0.4 mg capsule,extended release 24hr 0.4 mg PO QDAY Qty: 90 0RF oxycodone 10 mg tablet 10 mg PO Q6H MDD 4 times daily PRN (Reason: pain) Qty: 112 0RF Rx Instructions: *Must last patient 28 days* ketoconazole 2 % shampoo 1 applic TOPICAL Q OTHER DAY 0RF bupropion HCl 150 mg tablet extended release 24 hr 150 mg PO QAM 0RF buspirone 10 mg tablet 10 mg PO BID 0RF hydroxyzine HCl 25 mg tablet 25 mg PO QHS PRN0RF budesonide-formoterol 80-4.5 mcg/actuation HFA aerosol inhaler 2 puff INHALATION BID 0RF albuterol sulfate [Ventolin HFA] 90 mcg/actuation HFA aerosol inhaler 2 puff INHALATION QDAY Qty: 18 3RF Combivent Respimat 20-100 mcg/actuation mist 1 puff inhalation Q6H Qty: 4 0RF Plan of Treatment: The patient will be started on normal saline under 25 cc an hour rather than hypertonic saline for suspected beer potomania as his hypovolemia is likely hypovolemic in etiology. We will obtain urine sodium and urine osmolality as well as serum osmolality. We will monitor his sodium every 4 hours. At this point, he will also be placed on CIWA protocol for suspected alcohol withdrawal.
[2021-11-11] MEDS ORDERED: LORazepam 1 MG TABLET PO PRN (22:55)
[2021-11-11] MEDS: 0.9 % SODIUM CHLORIDE 1,000 ML IV SCH (23:00)
[2021-11-11] MEDS: 0.9 % SODIUM CHLORIDE 10 ML SYRINGE IV SCH (23:00)
[2021-11-11] MEDS: LORazepam 2 MG/ML VIAL IV PRN (23:38)
[2021-11-12 00:22] LABS: Sodium, Urine Random 28 mmol/L
[2021-11-12 00:29] LABS: Osmolality,Urine 200 mOSM/kg (80-1000)
[2021-11-12] MEDS: LORazepam 2 MG/ML VIAL IV PRN ×3 (03:18→20:49)
[2021-11-12] MEDS ORDERED: LORazepam 2 MG/ML VIAL ONE (03:24)
[2021-11-12] MEDS: 0.9 % SODIUM CHLORIDE 10 ML SYRINGE IV SCH ×3 (04:49→20:49)
[2021-11-12 06:15] LABS: Basophils # (Auto) 0.02 K/mcL (0.00-0.30); Basophils % (Auto) 0.3 % (0.0-2.0); Eosinophils # (Auto) 0.06 K/mcL (0.00-0.70); Eosinophils % (Auto) 0.9 % (0.0-7.0); Hematocrit 25.8 % (40.1-51.0); Hemoglobin 9.1 g/dL (13.7-17.5); Lymphocytes # (Auto) 0.55 K/mcL (1.50-4.80); Lymphocytes % (Auto) 8.6 % (15.5-49.0); Mean Cell Volume 91.8 fL (80.0-100.0); Mean Corpuscular HGB Conc 35.3 g/dL (31.0-36.0); Mean Platelet Volume 9.3 fL (7.4-10.4); Monocytes # (Auto) 0.86 K/mcL (0.10-0.90); Monocytes % (Auto) 13.5 % (1.0-12.0); Neutrophils % (Auto) 76.7 % (38.0-78.0); Platelet Count 226 K/mcL (140-440); RBC 2.81 M/mcL (4.63-6.08); Red Cell Distribution Width 11.7 % (11.5-14.5); WBC 6.4 K/mcL (4.5-11.0)
[2021-11-12 06:38] LABS: Blood Urea Nitrogen 16 mg/dL (8-23); Calcium 8.8 mg/dL (8.6-10.4); Carbon Dioxide 26 mmol/L (22-30); Chloride 84 mmol/L (96-108); Glomerular Filtration Rate 56; Glucose 106 mg/dL (70-105)
[2021-11-12] MEDS: 0.9 % SODIUM CHLORIDE 1,000 ML IV SCH (07:26)
--- NOTE | 2021-11-12 08:26 | EKG ---
[facility] Test Date: 2021-11-11 Pat Name: Isaac Russo Department: ED Room: Gender: Male Configuration Management Administrator: JOSE : [id number] Requested By: Mekhi Naranjo Order Number: [id number] Reading MD: Manohar Lopez M.D. Measurements Intervals Richards Rate: 86 P: AR: QRS: -11 QRSD: 100 T: 46 QT: 377 QTc: 451 Interpretive Statements Atrial flutter with predominant 3:1 AV block Abnormal R-wave progression, early transition Minimal ST depression, lateral leads Electronically Signed On 11-12-2021 8:25:59 PDT by Manohar Lopez M.D. /store/M0/[id number]
[2021-11-12] MEDS: ENOXAPARIN 40 MG/0.4 ML SYRINGE SQ SCH (08:41)
--- NOTE | 2021-11-12 11:04 | Internal Med Progress Note ---
SUBJECTIVE Subjective Patient information: Note initiated : 11/12/21 at 11:01 am Service Date, if different from initiated Date: [as above] Patient: Isaac Russo 66 y/o M admitted on 11/11/21 for falls, weakness. Chief Complaint: [LOC] Principal diagnosis: Alcohol withdrawal, hyponatremia, wrist fracture Interval history: The patient's mentation has significantly improved however it is not close to his baseline. His speech is still slurred and he is quite debilitated and weak. Discussed the case with RN. Discussed the case with orthopedic surgeon on- call. Constitutional Vitals: Vital Signs Temp Pulse Resp BP Pulse Ox 98.2 F 71 19 165/100 100 11/12/21 08:02 11/12/21 08:02 11/12/21 08:02 11/12/21 08:02 11/12/21 08:02 Period Temp Pulse Resp BP Sys/Gan Pulse Ox Last 24 Hr 97.4 F-98.2 F 62-91 12-21 120-194/79-154 95-100 Intake and Output 11/11/21 11/12/21 11/12/21 21:59 05:59 13:59 Intake Total 100 1360 Output Total 2550 1325 Balance 100 -2550 35 Weight 77.111 kg 68.492 kg Intake & Output: Intake & Output 11/11/21 11/12/21 11/12/21 21:59 05:59 13:59 Intake Total 100 1360 Output Total 2550 1325 Balance 100 -2550 35 Weight 77.111 kg 68.492 kg Intake: IV 100 1000 Sodium Chloride 0.9% 1,000 ml @ 1000 125 mls/hr IV .Q8H ELANA Rx#: [id number] Sodium Chloride 3% 100 ml @ 600 100 mls/hr IV ONCE ELANA Rx#: [id number] Oral 360 Output: Urine Catheter Amount 2550 1325 Other: Meal Breakfast Percent of Meal Consumed 25% Feeding Ability Needs Supervision Urine Appearance Clear Clear Uretheral (Pereira) Clear Urine Color Pale Straw Uretheral ([place]reira) Bright Yellow Urine Odor Normal Head Head exam: Present atraumatic and normal inspection Eye Eye exam: Present normal appearance ENT ENT exam: Present mucous membranes moist, normal exam and normal external ear exam Neck Neck exam: Present normal inspection Respiratory Respiratory exam: Present normal respiratory exam Cardiovascular Cardiovascular exam: Present normal rate and rhythm GI/Abdominal GI/Abdominal exam: Present normal bowel sounds Back Exam Back exam: Present normal inspection Neurological Exam Neurological exam: Present alert and oriented X3 Skin Skin exam: Present intact and warm OBJ DATA Labs CBC & Chem 7: 11/12/21 05:18 11/12/21 05:18 Labs: Abnormal Lab Results 11/12/21 11/12/21 11/12/21 05:18 05:18 03:25 RBC 2.81 L Hgb 9.1 L Hct 25.8 L POC Hct Lymph % (Auto) 8.6 L [place] % (Auto) 13.5 H Lymph # (Auto) 0.55 L [place] # (Auto) POC Sodium Sodium 122 L 119 L* POC Chloride Chloride 84 L Carbon Dioxide POC Total CO2 Anion Gap Creatinine 1.3 H POC Creatinine Glucose 106 H POC Glucose Osmolality Magnesium AST ALT Globulin Urine Protein Urine Ketones Ur Leukocyte Esterase Urine WBC U Marijuana (THC) Screen 11/11/21 11/11/21 11/11/21 22:00 20:13 20:13 RBC Hgb Hct POC Hct Lymph % (Auto) [place] % (Auto) Lymph # (Auto) [place] # (Auto) POC Sodium Sodium 115 L* POC Chloride Chloride Carbon Dioxide POC Total CO2 Anion Gap Creatinine POC Creatinine Glucose POC Glucose Osmolality Magnesium AST ALT Globulin Urine Protein 100 A Urine Ketones 20 A Ur Leukocyte Esterase 25 A Urine WBC 5 H U Marijuana (THC) Screen Suspect positive A 11/11/21 11/11/21 11/11/21 20:00 20:00 20:00 RBC 3.33 L Hgb 10.5 L Hct 31.6 L POC Hct Lymph % (Auto) 8.7 L [place] % (Auto) 14.2 H Lymph # (Auto) 0.75 L [place] # (Auto) 1.23 H POC Sodium Sodium 113 L* POC Chloride Chloride 73 L Carbon Dioxide 18 L POC Total CO2 Anion Gap 22.0 H Creatinine 1.5 H POC Creatinine Glucose 132 H POC Glucose Osmolality 245 L Magnesium 1.5 L AST 89 H ALT 88 H Globulin 2.1 L Urine Protein Urine Ketones Ur Leukocyte Esterase Urine WBC U Marijuana (THC) Screen 11/11/21 19:48 RBC Hgb Hct POC Hct 36.0 L Lymph % (Auto) [place] % (Auto) Lymph # (Auto) [place] # (Auto) POC Sodium 114 L* Sodium POC Chloride 76 L Chloride Carbon Dioxide POC Total CO2 21.0 L Anion Gap Creatinine POC Creatinine 1.5 H Glucose POC Glucose 121 H Osmolality Magnesium AST ALT Globulin Urine Protein Urine Ketones Ur Leukocyte Esterase Urine WBC U Marijuana (THC) Screen Meds: Medications Enoxaparin Sodium (Enoxaparin 40 Mg/0.4 Ml Syringe) 40 mg SQ DAILY [facility] Last Admin: 11/12/21 08:41 Dose: 40 mg Documented by: Lorazepam (Lorazepam 1 Mg Tablet) 2 mg PO Q2HP PRN PRN Reason: CIWA-A >6 or HR >100 Lorazepam (Lorazepam 2 Mg/Ml Vial) 0 mg IV Q1HP PRN; Protocol PRN Reason: Alcohol Withdrawal/Assess [facility] Last Admin: 11/12/21 07:25 Dose: 2 mg Documented by: Ondansetron HCl (Ondansetron 4 Mg/2 Ml Vial) 4 mg IV Q4-6HP PRN; Protocol PRN Reason: Nausea And Vomiting Senna (Sennosides 1 Tablet) 2 tab PO HSP PRN PRN Reason: Constipation Sodium Chloride (0.9 % Sodium Chloride 10 Ml Syringe) 10 ml IV Q8 [facility] Last Admin: 11/12/21 04:49 Dose: 10 ml Documented by: A/P Assessment and plan (1) Acute hyponatremia: Status: Acute (2) Seizure: Status: Acute (3) Toxic metabolic encephalopathy: Status: Acute (4) Lactic acidosis: Status: Acute (5) BAMBI (acute kidney injury): Status: Acute (6) Wrist fracture: Status: Acute Narrative A/P Narrative: The patient's clinical presentation is concerning for seizures due to possible alcohol withdrawal versus severe electrolyte derangements. He will need to be admitted to the ICU for close monitoring. Plan of Treatment: The patient will be started on normal saline under 25 cc an hour rather than hypertonic saline for suspected beer potomania as his hypovolemia is likely hypovolemic in etiology. We will obtain urine sodium and urine osmolality as well as serum osmolality. We will monitor his sodium every 4 hours. At this point, he will also be placed on CIWA protocol for suspected alcohol withdrawal. 11/12: The patient's sodium has improved to 122 with IV fluids. His creatinine is also improved to 1.3. We will stop IV fluids and start p.o. diet. We will continue CIWA protocol for alcohol withdrawal. The patient is scoring between 11-15. He required 4 mg overnight. X-ray of the patient's hand revealed a chip fracture of the proximal and dorsal aspects of the right fifth middle phalanx and fractures of the right fourth and fifth metacarpals with volar angulation. Chronicity is not certain. Orthopedic surgery has been consulted to assist. Time Spent With Patient Time: Total time spent is greater than 50% in coordination of care (as documented) at patient's floor/unit and/or counseling patient: Total time spent with greater than 50% in coordination of care (as documented) at patient's floor/unit and/or counseling patient:: 25 - 35 minutes
[2021-11-13] MEDS: LORazepam 2 MG/ML VIAL IV PRN ×2 (00:39→04:13)
[2021-11-13] MEDS: 0.9 % SODIUM CHLORIDE 10 ML SYRINGE IV SCH ×3 (06:04→21:34)
[2021-11-13 07:25] LABS: Blood Urea Nitrogen 14 mg/dL (8-23); Calcium 9.5 mg/dL (8.6-10.4); Carbon Dioxide 25 mmol/L (22-30); Chloride 88 mmol/L (96-108); Glomerular Filtration Rate 51; Glucose 116 mg/dL (70-105)
--- NOTE | 2021-11-13 09:11 | Consultation ---
DATE OF CONSULTATION: 11/13/2021 CHIEF COMPLAINT: Right 5th middle phalanx fracture. HISTORY: This gentleman is admitted with a history of weakness and multiple falls, chronic opioid use, suspected alcohol abuse, hypertension, COPD. Patient has had multiple falls. He is admitted for severe hyponatremia and altered mental status. He was noted to have some chronic deformities of his right hand and possibly an acute fracture of his right 5th middle phalanx. There was some chronic deformity as well. Patient was splinted and I was called for further evaluation and management. PAST MEDICAL HISTORY: Please see the chart. PAST SURGICAL HISTORY: Please see the chart. MEDICATIONS: Please see the chart. PHYSICAL EXAMINATION: Patient is presently a very poor historian and is confused when I see him in the ICU. He is splinted. He seems to be neurovascularly intact. This was discussed as a closed fracture, and I did not remove the splint as it is acceptably positioned. IMAGING: Radiographs demonstrate a fracture at the base of the 5th middle phalanx, minimally displaced. There is some chronic avulsion here as well but may be an acute fracture as well. IMPRESSION: Fracture 5th middle phalanx. PLAN: Patient is well-managed without surgical intervention. The splint that he is in presently is acceptable, and I would ask that he follow up with me on discharge. GDD:alayna Job ID: [id number] Doc ID: [id number] Paul Doll MD
[2021-11-13] MEDS ORDERED: MAGNESIUM SULFATE 2 GM/50 ML BAG IV ONE (09:14)
[2021-11-13] MEDS: ENOXAPARIN 40 MG/0.4 ML SYRINGE SQ SCH (09:22)
--- NOTE | 2021-11-13 13:16 | Internal Med Progress Note ---
SUBJECTIVE Subjective Patient information: Note initiated : 11/13/21 at 1:14 pm Service Date, if different from initiated Date: [] Patient: Isaac Russo 66 y/o M admitted on 11/11/21 for falls, weakness. Chief Complaint: [As above] Principal diagnosis: Alcohol withdrawal, hyponatremia, wrist fracture Interval history: The patient's mental status is slowly improving day by day. Today he was alert and oriented x2. He did know that he was in [facility], the year was 2021 and the president was Keith Henry. Discussed the case with the RN. The patient CIWA score was 8 this morning. He received 7 mg of Ativan overnight. Constitutional Vitals: Vital Signs Temp Pulse Resp BP Pulse Ox 97.5 F 72 16 120/87 97 11/13/21 12:01 11/13/21 12:01 11/13/21 12:01 11/13/21 12:01 11/13/21 12:01 Period Temp Pulse Resp BP Sys/Gan Pulse Ox Last 24 Hr 97.1 F-98.2 F 72-105 13-21 115-178/78-138 95-100 Intake and Output 11/12/21 11/13/21 11/13/21 21:59 05:59 13:59 Intake Total 80 90 Output Total 504 454 8947 Balance -320 -950 -1185 Weight 65.317 kg 65.317 kg Patient Weight 11/14/21 05:59 Weight 65.317 kg Intake & Output: Intake & Output 11/12/21 11/13/21 11/13/21 21:59 05:59 13:59 Intake Total 80 90 Output Total 963 337 3680 Balance -320 -950 -1185 Weight 65.317 kg 65.317 kg Intake: IV 50 Oral 80 40 Output: Urine Catheter Amount 711 993 1034 Other: Meal Dinner Breakfast Percent of Meal Consumed 75% 50% Feeding Ability Needs Supervision Needs Supervision Urine Appearance Clear Clear Clear Urine Color Straw Pale Bright Yellow Urine Odor Normal Normal Head Head exam: Present atraumatic and normal inspection Eye Eye exam: Present normal appearance ENT ENT exam: Present mucous membranes moist, normal exam and normal external ear exam Neck Neck exam: Present normal inspection Respiratory Respiratory exam: Present normal respiratory exam Cardiovascular Cardiovascular exam: Present normal rate and rhythm GI/Abdominal GI/Abdominal exam: Present normal bowel sounds Back Exam Back exam: Present normal inspection Neurological Exam Neurological exam: Present alert Skin Skin exam: Present intact and warm OBJ DATA Labs CBC & Chem 7: 11/12/21 05:18 11/13/21 05:08 Labs: Abnormal Lab Results 11/13/21 11/12/21 11/12/21 05:08 05:18 05:18 RBC 2.81 L Hgb 9.1 L Hct 25.8 L POC Hct Lymph % (Auto) 8.6 L [place] % (Auto) 13.5 H Lymph # (Auto) 0.55 L [place] # (Auto) POC Sodium Sodium 128 L 122 L POC Chloride Chloride 88 L 84 L Carbon Dioxide POC Total CO2 Anion Gap Creatinine 1.4 H 1.3 H POC Creatinine Glucose 116 H 106 H POC Glucose Osmolality Magnesium AST ALT Globulin Urine Protein Urine Ketones Ur Leukocyte Esterase Urine WBC U Marijuana (THC) Screen 11/12/21 11/11/21 11/11/21 03:25 22:00 20:13 RBC Hgb Hct POC Hct Lymph % (Auto) [place] % (Auto) Lymph # (Auto) [place] # (Auto) POC Sodium Sodium 119 L* 115 L* POC Chloride Chloride Carbon Dioxide POC Total CO2 Anion Gap Creatinine POC Creatinine Glucose POC Glucose Osmolality Magnesium AST ALT Globulin Urine Protein 100 A Urine Ketones 20 A Ur Leukocyte Esterase 25 A Urine WBC 5 H U Marijuana (THC) Screen 11/11/21 11/11/21 11/11/21 20:13 20:00 20:00 RBC Hgb Hct POC Hct Lymph % (Auto) [place] % (Auto) Lymph # (Auto) [place] # (Auto) POC Sodium Sodium 113 L* POC Chloride Chloride 73 L Carbon Dioxide 18 L POC Total CO2 Anion Gap 22.0 H Creatinine 1.5 H POC Creatinine Glucose 132 H POC Glucose Osmolality 245 L Magnesium 1.5 L AST 89 H ALT 88 H Globulin 2.1 L Urine Protein Urine Ketones Ur Leukocyte Esterase Urine WBC U Marijuana (THC) Screen Suspect positive A 11/11/21 11/11/21 20:00 19:48 RBC 3.33 L Hgb 10.5 L Hct 31.6 L POC Hct 36.0 L Lymph % (Auto) 8.7 L [place] % (Auto) 14.2 H Lymph # (Auto) 0.75 L [place] # (Auto) 1.23 H POC Sodium 114 L* Sodium POC Chloride 76 L Chloride Carbon Dioxide POC Total CO2 21.0 L Anion Gap Creatinine POC Creatinine 1.5 H Glucose POC Glucose 121 H Osmolality Magnesium AST ALT Globulin Urine Protein Urine Ketones Ur Leukocyte Esterase Urine WBC U Marijuana (THC) Screen Meds: Medications Enoxaparin Sodium (Enoxaparin 40 Mg/0.4 Ml Syringe) 40 mg SQ DAILY [facility] Last Admin: 11/13/21 09:22 Dose: 40 mg Documented by: Lorazepam (Lorazepam 1 Mg Tablet) 2 mg PO Q2HP PRN PRN Reason: CIWA-A >6 or HR >100 Lorazepam (Lorazepam 2 Mg/Ml Vial) 0 mg IV Q1HP PRN; Protocol PRN Reason: Alcohol Withdrawal/Assess [facility] Last Admin: 11/13/21 04:13 Dose: 3 mg Documented by: Ondansetron HCl (Ondansetron 4 Mg/2 Ml Vial) 4 mg IV Q4-6HP PRN; Protocol PRN Reason: Nausea And Vomiting Senna (Sennosides 1 Tablet) 2 tab PO HSP PRN PRN Reason: Constipation Sodium Chloride (0.9 % Sodium Chloride 10 Ml Syringe) 10 ml IV Q8 [facility] Last Admin: 11/13/21 06:04 Dose: 10 ml Documented by: A/P Assessment and plan (1) Acute hyponatremia: Status: Acute (2) Seizure: Status: Acute (3) Toxic metabolic encephalopathy: Status: Acute (4) Lactic acidosis: Status: Acute (5) BAMBI (acute kidney injury): Status: Acute (6) Wrist fracture: Status: Acute Narrative A/P Narrative: The patient's clinical presentation is concerning for seizures due to possible alcohol withdrawal versus severe electrolyte derangements. He will need to be admitted to the ICU for close monitoring. Plan of Treatment: The patient will be started on normal saline under 25 cc an hour rather than hypertonic saline for suspected beer potomania as his hypovolemia is likely hypovolemic in etiology. We will obtain urine sodium and urine osmolality as well as serum osmolality. We will monitor his sodium every 4 hours. At this point, he will also be placed on CIWA protocol for suspected alcohol withdrawal. 11/12: The patient's sodium has improved to 122 with IV fluids. His creatinine is also improved to 1.3. We will stop IV fluids and start p.o. diet. We will continue CIWA protocol for alcohol withdrawal. The patient is scoring between 11-15. He required 4 mg overnight. X-ray of the patient's hand revealed a chip fracture of the proximal and dorsal aspects of the right fifth middle phalanx and fractures of the right fourth and fifth metacarpals with volar angulation. Chronicity is not certain. Orthopedic surgery has been consulted to assist. 11/13: The patient's CIWA score was 14, then 14, and then 16. He required 7 mg of Ativan overnight. He will be monitored closely for ongoing alcohol withdrawal with CIWA protocol. He is severe hyponatremia is now resolved and his most recent sodium was 128. He would benefit from social work referral for chemical dependency counseling. Time Spent With Patient Time: Total time spent is greater than 50% in coordination of care (as documented) at patient's floor/unit and/or counseling patient: Total time spent with greater than 50% in coordination of care (as documented) at patient's floor/unit and/or counseling patient:: 25 - 35 minutes Total Critical Care Time: 15
[2021-11-13] MEDS: BISOPROLOL 5 MG TABLET PO SCH (19:50)
[2021-11-14] MEDS: 0.9 % SODIUM CHLORIDE 10 ML SYRINGE IV SCH ×3 (06:00→20:59)
[2021-11-14] MEDS: BISOPROLOL 5 MG TABLET PO SCH (09:50)
[2021-11-14] MEDS: ENOXAPARIN 40 MG/0.4 ML SYRINGE SQ SCH (09:51)
[2021-11-14 10:10] LABS: Blood Urea Nitrogen 14 mg/dL (8-23); Calcium 10.4 mg/dL (8.6-10.4); Carbon Dioxide 27 mmol/L (22-30); Chloride 91 mmol/L (96-108); Glomerular Filtration Rate 47; Glucose 147 mg/dL (70-105)
--- NOTE | 2021-11-14 10:10 | Internal Med Progress Note ---
SUBJECTIVE Subjective Patient information: Note initiated : 11/14/21 at 10:09 am Service Date, if different from initiated Date: [] Patient: Isaac Russo 66 y/o M admitted on 11/11/21 for falls, weakness. Chief Complaint: [LOC] Principal diagnosis: Alcohol withdrawal, hyponatremia, wrist fracture Interval history: The patient was resting comfortably in bed. Discussed the case with the RN who was present at the bedside. The patient's mentation is improving day by day. He was CIWA score has been 0. Constitutional Vitals: Vital Signs Temp Pulse Resp BP Pulse Ox 97.7 F 79 23 H 189/112 100 11/14/21 08:01 11/14/21 08:01 11/14/21 08:39 11/14/21 08:01 11/14/21 08:01 Period Temp Pulse Resp BP Sys/Gan Pulse Ox Last 24 Hr 97.5 F-98.9 F 64-113 12-23 120-189/82-116 96-100 Intake and Output 11/13/21 11/14/21 11/14/21 21:59 05:59 13:59 Intake Total 700 50 Output Total 275 350 200 Balance 425 -300 -200 Weight 65.317 kg Intake & Output: Intake & Output 11/13/21 11/14/21 11/14/21 21:59 05:59 13:59 Intake Total 700 50 Output Total 275 350 200 Balance 425 -300 -200 Weight 65.317 kg Intake: Nourishment/Supplement quantity 100 (ml) Oral 600 50 Output: Urine Catheter Amount 275 350 200 Other: Meal Dinner Percent of Meal Consumed 50% Feeding Ability Assist with Tray Set Up Nourishment/Supplement name ensure Urine Appearance Clear Clear Clear Urine Color Bright Yellow Bright Yellow Bright Yellow Urine Odor Normal Normal Normal Stool Size Moderate Stool Color Brown Green Stool Consistency Dry and Hard Head Head exam: Present atraumatic and normal inspection Eye Eye exam: Present normal appearance ENT ENT exam: Present mucous membranes moist, normal exam and normal external ear exam Neck Neck exam: Present normal inspection Respiratory Respiratory exam: Present normal respiratory exam Cardiovascular Cardiovascular exam: Present normal rate and rhythm GI/Abdominal GI/Abdominal exam: Present normal bowel sounds Back Exam Back exam: Present normal inspection Neurological Exam Neurological exam: Present alert Skin Skin exam: Present intact and warm OBJ DATA Labs CBC & Chem 7: 11/12/21 05:18 06/08/22 05:08 Labs: Abnormal Lab Results 11/13/21 11/12/21 11/12/21 05:08 05:18 05:18 RBC 2.81 L Hgb 9.1 L Hct 25.8 L POC Hct Lymph % (Auto) 8.6 L [place] % (Auto) 13.5 H Lymph # (Auto) 0.55 L [place] # (Auto) POC Sodium Sodium 128 L 122 L POC Chloride Chloride 88 L 84 L Carbon Dioxide POC Total CO2 Anion Gap Creatinine 1.4 H 1.3 H POC Creatinine Glucose 116 H 106 H POC Glucose Osmolality Magnesium AST ALT Globulin Urine Protein Urine Ketones Ur Leukocyte Esterase Urine WBC U Marijuana (THC) Screen 11/12/21 11/11/21 11/11/21 03:25 22:00 20:13 RBC Hgb Hct POC Hct Lymph % (Auto) [place] % (Auto) Lymph # (Auto) [place] # (Auto) POC Sodium Sodium 119 L* 115 L* POC Chloride Chloride Carbon Dioxide POC Total CO2 Anion Gap Creatinine POC Creatinine Glucose POC Glucose Osmolality Magnesium AST ALT Globulin Urine Protein 100 A Urine Ketones 20 A Ur Leukocyte Esterase 25 A Urine WBC 5 H U Marijuana (THC) Screen 11/11/21 11/11/21 11/11/21 20:13 20:00 20:00 RBC Hgb Hct POC Hct Lymph % (Auto) [place] % (Auto) Lymph # (Auto) [place] # (Auto) POC Sodium Sodium 113 L* POC Chloride Chloride 73 L Carbon Dioxide 18 L POC Total CO2 Anion Gap 22.0 H Creatinine 1.5 H POC Creatinine Glucose 132 H POC Glucose Osmolality 245 L Magnesium 1.5 L AST 89 H ALT 88 H Globulin 2.1 L Urine Protein Urine Ketones Ur Leukocyte Esterase Urine WBC U Marijuana (THC) Screen Suspect positive A 11/11/21 11/11/21 20:00 19:48 RBC 3.33 L Hgb 10.5 L Hct 31.6 L POC Hct 36.0 L Lymph % (Auto) 8.7 L [place] % (Auto) 14.2 H Lymph # (Auto) 0.75 L [place] # (Auto) 1.23 H POC Sodium 114 L* Sodium POC Chloride 76 L Chloride Carbon Dioxide POC Total CO2 21.0 L Anion Gap Creatinine POC Creatinine 1.5 H Glucose POC Glucose 121 H Osmolality Magnesium AST ALT Globulin Urine Protein Urine Ketones Ur Leukocyte Esterase Urine WBC U Marijuana (THC) Screen Meds: Medications Bisoprolol Fumarate (Bisoprolol 5 Mg Tablet) 5 mg PO DAILY [facility] Last Admin: 11/14/21 09:50 Dose: 5 mg Documented by: Enoxaparin Sodium (Enoxaparin 40 Mg/0.4 Ml Syringe) 40 mg SQ DAILY [facility] Last Admin: 11/14/21 09:51 Dose: 40 mg Documented by: Ondansetron HCl (Ondansetron 4 Mg/2 Ml Vial) 4 mg IV Q4-6HP PRN; Protocol PRN Reason: Nausea And Vomiting Senna (Sennosides 1 Tablet) 2 tab PO HSP PRN PRN Reason: Constipation Sodium Chloride (0.9 % Sodium Chloride 10 Ml Syringe) 10 ml IV Q8 [facility] Last Admin: 11/14/21 06:00 Dose: 10 ml Documented by: A/P Assessment and plan (1) Acute hyponatremia: Status: Acute (2) Seizure: Status: Acute (3) Toxic metabolic encephalopathy: Status: Acute (4) Lactic acidosis: Status: Acute (5) BAMBI (acute kidney injury): Status: Acute (6) Wrist fracture: Status: Acute Narrative A/P Narrative: The patient's clinical presentation is concerning for seizures due to possible alcohol withdrawal versus severe electrolyte derangements. He will need to be admitted to the ICU for close monitoring. Plan of Treatment: The patient will be started on normal saline under 25 cc an hour rather than hypertonic saline for suspected beer potomania as his hypovolemia is likely hypovolemic in etiology. We will obtain urine sodium and urine osmolality as well as serum osmolality. We will monitor his sodium every 4 hours. At this point, he will also be placed on CIWA protocol for suspected alcohol withdrawal. 11/12: The patient's sodium has improved to 122 with IV fluids. His creatinine is also improved to 1.3. We will stop IV fluids and start p.o. diet. We will continue CIWA protocol for alcohol withdrawal. The patient is scoring between 11-15. He required 4 mg overnight. X-ray of the patient's hand revealed a chip fracture of the proximal and dorsal aspects of the right fifth middle phalanx and fractures of the right fourth and fifth metacarpals with volar angulation. Chronicity is not certain. Orthopedic surgery has been consulted to assist. 11/13: The patient's CIWA score was 14, then 14, and then 16. He required 7 mg of Ativan overnight. He will be monitored closely for ongoing alcohol withdrawal with CIWA protocol. He is severe hyponatremia is now resolved and his most recent sodium was 128. He would benefit from social work referral for chemical dependency counseling. 11/14: The patient CIWA protocol will be discontinued today. In terms of his wrist, orthopedic surgery recommends continuing splinting and follow-up in an outpatient setting. He will be transferred out of the ICU to [facility]. Pereira may be removed. He will need to work with PT/OT and will likely require jail facility. Time Spent With Patient Time: Total time spent is greater than 50% in coordination of care (as documented) at patient's floor/unit and/or counseling patient: Total time spent with greater than 50% in coordination of care (as documented) at patient's floor/unit and/or counseling patient:: 25 - 35 minutes
[2021-11-14] MEDS ORDERED: BISOPROLOL 5 MG TABLET PO ONE (10:17)
[2021-11-14] MEDS: ACETAMINOPHEN 500 MG TABLET PO SCH ×2 (13:48→20:58)
[2021-11-14] MEDS ORDERED: BISOPROLOL 5 MG TABLET PO SCH (18:13)
[2021-11-15] MEDS: 0.9 % SODIUM CHLORIDE 10 ML SYRINGE IV SCH (05:26)
[2021-11-15] MEDS ORDERED: HYDROCORTISONE CRM 1% TUBE 30GM TOPICAL PRN (06:00)
[2021-11-15] MEDS ORDERED: BISOPROLOL 5 MG TABLET PO SCH (09:00)
[2021-11-15] MEDS: ENOXAPARIN 40 MG/0.4 ML SYRINGE SQ SCH (09:22)
[2021-11-15] MEDS: ACETAMINOPHEN 500 MG TABLET PO SCH (09:22)
--- NOTE | 2021-11-15 11:53 | Discharge Summary ---
Discharge Provider Provider IMPORTANT FOLLOW-UP INFORMATION FOR PCP: 1. Ortho f/u for wrist fracture 2. CD counseling Patient information: Note initiated : 11/15/21 at 11:53 am Service Date, if different from initiated Date: [] Patient: Isaac Russo 66 y/o M admitted on 11/11/21 for falls, weakness. Chief Complaint: [ALOC] Date of admission: 11/11/21 22:44 Discharge date: 11/15/21 Primary care physician: PCP No Admitting clinician: Altagracia Baez Consults: 11/11/21 Consult to Physician [CONS] Stat Comment: Consulting Provider: Altagracia Baez Reason For Exam: Physician to Consult 11/12/21 10:24 Consult to Physician [CONS] Routine Comment: Consulting Provider: Paul Doll Reason For Exam: Physician to Consult 11/14/21 15:23 Consult to Physician [CONS] Routine Comment: [facility] Consulting Provider: [facility] Reason For Exam: Physician to Consult Discharging clinician: Altagracia Baez COURSE Hospital Course Hospital course: History of present illness: Mr. Russo is a 66 year old M with a past medical history significant for chronic opioid use disorder, suspected alcohol abuse, hypertension, and obstructive lung disease who presents to the hospital with 1 month history of weakness and multiple falls. History was obtained secondhand from chart review, nursing and ER staff as the patient was somnolent and his speech was unintelligible. There was also concerns that he may have alcohol withdrawal and had 2 seizures while he presented to the ER. On presentation he was hemodynamically stable and afebrile. Of note, he was found to have a critical sodium of 113. The patient's creatinine was 1.3. The hospitalist service was asked admit the patient to the ICU for further management and evaluation of his suspected alcohol withdrawal in the setting of severe hyponatremia. The patient will be started on normal saline under 25 cc an hour rather than hypertonic saline for suspected beer potomania as his hypovolemia is likely hypovolemic in etiology. We will obtain urine sodium and urine osmolality as well as serum osmolality. We will monitor his sodium every 4 hours. At this point, he will also be placed on CIWA protocol for suspected alcohol withdrawal. 11/12: The patient's sodium has improved to 122 with IV fluids. His creatinine is also improved to 1.3. We will stop IV fluids and start p.o. diet. We will continue CIWA protocol for alcohol withdrawal. The patient is scoring between 11-15. He required 4 mg overnight. X-ray of the patient's hand revealed a chip fracture of the proximal and dorsal aspects of the right fifth middle phalanx and fractures of the right fourth and fifth metacarpals with volar angulation. Chronicity is not certain. Orthopedic surgery has been consulted to assist. 11/13: The patient's CIWA score was 14, then 14, and then 16. He required 7 mg of Ativan overnight. He will be monitored closely for ongoing alcohol withdrawal with CIWA protocol. He is severe hyponatremia is now resolved and his most recent sodium was 128. He would benefit from social work referral for chemical dependency counseling. 11/14: The patient CIWA protocol will be discontinued today. In terms of his wrist, orthopedic surgery recommends continuing splinting and follow-up in an outpatient setting. He will be transferred out of the ICU to [facility]. Pereira may be removed. He will need to work with PT/OT and will likely require senior care facility. 11/15: The patient is doing quite well. He is returned back to his baseline mentation. His sodium has normalized to 130. He will will be discharged to senior care facility. He is to follow-up with orthopedic surgery in outpatient setting for his wrist fracture and seek CD counseling. Discharge diagnosis: Acute hyponatremia, toxic metabolic encephalopathy, alcohol withdrawal Secondary discharge diagnosis: Right wrist fracture Time Spent with Patient Time attestation: Total time spent providing and/or coordinating discharge services: Time spent: Greater than 30 minutes EXAM Constitutional Vitals: Temp Pulse Resp BP Pulse Ox 97.2 F 78 18 171/98 98 11/15/21 11:21 11/15/21 11:21 11/15/21 11:21 11/15/21 11:21 11/15/21 11:21 General appearance: average body habitus Head Head exam: Present atraumatic, normal inspection and normocephalic Eye Eye exam: Present EOMI, normal appearance and PERRL; Absent conjunctival injection ENT ENT exam: Present normal exam; Absent mucous membranes dry Neck Neck exam: Present full ROM; Absent lymphadenopathy Respiratory Respiratory exam: Present normal respiratory exam and CTAB; Absent decreased breath sounds, respiratory distress or wheezes Cardiovascular Cardiovascular exam: Present normal rate and rhythm and RRR; Absent JVD GI/Abdominal GI/Abdominal exam: Present normal bowel sounds and soft; Absent diminished bowel sounds, distended, guarding, mass, rebound or tenderness Neurological Exam Neurological exam: Present alert, CN II-XII intact and oriented X3 Psychiatric Psychiatric exam: Present normal affect and normal mood Skin Skin exam: Present intact and warm; Absent erythema, pallor, petechiae or rash Discharge Data Data Completed and Pending Labs on day of discharge: Labs from last 24 hours 11/15/21 05:58 Magnesium 1.6 Discharge Plan Patient/Caregiver Discharge Instructions Activity: as per physical therapy Diet: Regular Diet Prescriptions: New acetaminophen 500 mg Tablet 1,000 mg PO TID Qty: 90 0RF hydrocortisone 1 % Cream 1 applic topical TIDP PRN (Reason: Skin Irritation) Qty: 28.35 0RF Continued bupropion HCl 150 mg tablet extended release 24 hr 450 mg PO QAM 0RF buspirone 10 mg tablet 20 mg PO TID 0RF hydroxyzine HCl 25 mg tablet 25 mg PO QHS 0RF bisoprolol fumarate 5 mg tablet 2 tab PO QDAY 0RF tamsulosin 0.4 mg Capsule 0.8 mg PO QHS 0RF cholecalciferol (vitamin D3) 50 mcg (2,000 unit) Tablet 100 mcg PO DAILY 0RF fluticasone propion-salmeterol [Advair Diskus] 500-50 mcg/dose Blister With Device 1 inh INHALATION BID 0RF Other Ambulatory Orders: OT Discharge Order (Routine) Location: None Selected Ordered By: Altagracia Baez Physical Therapy at Discharge - General (Routine) Location: None Selected Ordered By: Altagracia Baez Follow Up Plan Follow up with: No,PCP [Primary Care Provider] - Patient Disposition: Xfer SNF Prognosis: Critical Rehab Potential: Good I certify that the patient requires SNF services: Yes Overall status at discharge: patient is progressing back to baseline Discharge Orders: Discharge Order (Routine); Ordered 11/15/21 Ordered By: Altagracia Baez
[2021-11-21 05:27] LABS: Cannabinoid Confirmation Positive
== END 2021-11-15 13:40 | DRG 640 ==
LOC: ED 19:18 → ICU 22:44 → MEDSUR 11-14 13:11
PROVIDERS: ADMIT Student in an Organized Health Care Education/Training Program; ATTEND Student in an Organized Health Care Education/Training Program

== ENCOUNTER 2022-02-20 12:12 | Inpatient (IN) ==
--- NOTE | 2022-02-20 12:23 | Emergency Department Note ---
HPI General Chief complaint: Weakness Stated complaint: Failure to thrive Time Seen by Provider: 02/20/22 12:21 Mode of arrival: wheelchair History of Present Illness HPI Narrative: Narrative: Patient is a 66-year-old male with a complex medical history presents to the emergency department due to weakness, lightheadedness, and falls. He states that he has had the symptoms for the past year. He states that he was admitted, and discharged in November. He states that since that time he has had worsening of his weakness and lightheadedness. He states that he has not really been moving much due to concern that he would fall again. He states that he had fallen 8 times prior to his admission. He states that since discharge in November he began to have blood in his stool. He states that it is bright red. He also endorses palpitations. He states that he has had abdominal pain, and initially stated that it was in the epigastric region, but with examination he then stated that it seemed to be worse in the left lower quadrant. He also endorses many small wounds on the extremities. He denies any other concerns at this time. Related Data Home Medications Medication Instructions Recorded Confirmed bupropion HCl 150 mg 24 hr tablet, 450 mg PO QAM 09/20/19 02/20/22 extended release buspirone 10 mg tablet 20 mg PO TID 09/20/19 02/20/22 bisoprolol fumarate 5 mg tablet 2 tab PO QDAY 11/12/21 02/20/22 cholecalciferol (vitamin D3) 50 100 mcg PO DAILY 11/12/21 02/20/22 mcg (2,000 unit) tablet fluticasone 500 mcg-salmeterol 50 1 inh inhalation BID 11/12/21 02/20/22 mcg/dose blistr powdr for inhalation (Advair Diskus) tamsulosin 0.4 mg capsule 0.8 mg PO QHS 11/12/21 02/20/22 Previous Rx's Medication Instructions Recorded acetaminophen 500 mg tablet 1,000 mg PO TID #90 tabs 11/15/21 acetaminophen 500 mg capsule 500 mg PO Q6H PRN pain #30 caps 02/01/22 sulfamethoxazole 800 1 tab PO BID #20 tabs 02/10/22 mg-trimethoprim 160 mg tablet (Bactrim DS) Allergies Allergy/AdvReac Type Severity Reaction Status Date / Time amlodipine Allergy Severe Difficulty Verified 02/20/22 19:21 Breathing lisinopril Allergy Severe Angioedema Verified 02/20/22 19:21 olmesartan [From Benicar] Allergy Severe Angioedema Verified 02/20/22 19:21 tramadol Allergy Intermediate Kidney Verified 02/20/22 19:21 Injury benzocaine Allergy Mild Rash Verified 02/20/22 19:21 gabapentin Allergy Mild Rash Verified 02/20/22 19:21 ketorolac [From Toradol] Allergy Mild Rash Verified 02/20/22 19:21 lidocaine Allergy Mild Rash Verified 02/20/22 19:21 tetracaine Allergy Mild Rash Verified 02/20/22 19:21 tetracycline [Tetracycline] Allergy Mild Rash Verified 02/20/22 19:21 amitriptyline Allergy Unknown Unknown Verified 02/20/22 19:21 NSAIDS (Non-Steroidal Allergy Unknown Other Verified 02/20/22 19:21 Anti-Inflamma pregabalin [From Lyrica] AdvReac Mild Right hand Verified 02/20/22 19:21 shakes, feels weak dust mite Allergy Intermediate Wheezing Uncoded 02/01/22 08:59 Review of Systems ROS ROS Narrative: Narrative: Constitutional: Reports weakness (Generalized); Denies fever Eyes: Denies eye pain or vision change ENT ED: Denies throat pain, hearing loss or rhinorrhea Cardiovascular: Denies chest pain, dyspnea on exertion, orthopnea or edema Respiratory: Denies shortness of breath or cough Gastrointestinal: Reports abdominal pain, hematochezia and melena; Denies nausea, vomiting, diarrhea or constipation Genitourinary: Denies dysuria, frequency, hematuria or incontinence Musculoskeletal: Denies back pain or myalgia Integumentary: Denies rash or lesions Neurological: Reports weakness (Generalized) and other (Lightheadedness); Denies headache, numbness, confusion, abnormal gait or dizziness Endocrine: Denies fatigue or polyuria Hematological/Lymphatic: Denies easy bleeding or easy bruising [facility] Narrative Patient History Narrative: Narrative: Medical/Surgical/Family History All Active Problems (Updated 02/21/22 @ 22:09 by Renny Collado MD) Olecranon bursitis of right elbow (Acute) Scabies (Acute) Infected elbow (Acute) Urinary tract infection (Acute) Acute dehydration (Acute) Sepsis (Acute) Wrist fracture (Acute) Acute metabolic encephalopathy (Acute) BAMBI (acute kidney injury) (Acute) Lactic acidosis (Acute) Toxic metabolic encephalopathy (Acute) Acute dehydration (Acute) Acute hyponatremia (Acute) Seizure (Acute) Acute alteration in mental status (Acute) USP prescription opiate use (Chronic) Opioid dependence (Chronic) Chronic pain (Chronic) Primary generalized (osteo)arthritis (Chronic) Monoclonal gammopathy (Chronic) Abdominal hernia (Chronic) Mixed hyperlipidemia (Chronic) Dermatitis, seborrheic (Chronic) Deviated nasal septum (Chronic) Edema (Chronic) Shoulder pain, bilateral (Chronic) Left lumbar radiculopathy (Chronic) Right cervical radiculopathy (Chronic) Cramp of limb (Chronic) Rib pain on left side (Chronic) Elevated d-dimer (Chronic) Anemia (Chronic) Hyponatremia (Chronic) Elevated troponin (Chronic) Near syncope (Chronic) Depressed mood (Chronic) Lumbar post-laminectomy syndrome (Chronic) Low back pain (Chronic) Hypomagnesemia (Chronic) Vitamin D deficiency (Chronic) Benign prostatic hyperplasia without lower urinary tract symptoms (Chronic) Generalized anxiety disorder (Chronic) Alcohol abuse (Chronic) Mild recurrent major depression (Chronic) Pain in right leg (Chronic) Chronic kidney disease, stage 3 (moderate) (Chronic) 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) Tinea capitis (Chronic) Numbness and tingling of both upper extremities while sleeping (Chronic) Neck pain (Chronic) Interscapular pain (Chronic) Internal thrombosed hemorrhoids (Chronic) Disorder of tendon of biceps (Chronic) Disorder of rotator cuff (Chronic) Constipation (Chronic) Cervical radicular pain (Chronic) 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) Spinal stenosis in cervical region (Chronic) Stomach ulcer (Chronic) Hypertension, essential (Chronic) Asthma (Chronic) Acid reflux (Chronic) Medical History (Updated 02/21/22 @ 22:09 by Renny Collado MD) Abdominal hernia Acid reflux 1996 Alcohol abuse Anemia Arthropathy of shoulder region Asthma Since 4 years old Benign prostatic hyperplasia without lower urinary tract symptoms Cervical fusion syndrome Cervical radicular pain Chronic kidney disease, stage 3 (moderate) Chronic pain Constipation Cramp of limb Depressed mood Dermatitis, seborrheic Deviated nasal septum Disorder of rotator cuff Disorder of tendon of biceps Edema Elevated d-dimer Elevated troponin Generalized anxiety disorder Hypertension, essential Hypomagnesemia Hyponatremia Internal thrombosed hemorrhoids Interscapular pain Left lumbar radiculopathy USP prescription opiate use Low back pain Lumbar post-laminectomy syndrome Mild recurrent major depression Mixed hyperlipidemia Monoclonal gammopathy Near syncope Neck pain Numbness and tingling of both upper extremities while sleeping Opioid dependence Pain in right leg Primary generalized (osteo)arthritis Rib pain on left side Right cervical radiculopathy Shoulder pain, bilateral Spinal stenosis in cervical region Stenosis of cervical spine with myelopathy Stomach ulcer Tinea capitis Vitamin D deficiency Surgical History H/O colonoscopy 11/2012 Dr. Luan ST[place] in [place] H/O laminectomy 04/1979 L4-5 due to paralysis/pain left leg 02/1989 L4-5 due to paralysis left leg-recurred 07/1992 L4-5 successful in relieving pain H/O shoulder surgery 07/2013 Left shoulder rebuild-PT was too aggressive in early part of recovery and so surgery was not successful. History of carpal tunnel surgery Right x 2 History of gastric surgery 1996 Successful removal of pyloric obstruction since Hx of cervical spine surgery 11/2014 C5, C6, C7 wired in cage. Still has right arm/hand pain and right arm/hand atrophy. Can't use right hand. Family History Father Liver cancer Pancreas cancer Mother Migraines Depression Sister Depression Social History Alcohol Intake Frequency: a few times a week Substance Use: does not use Exam Narrative Narrative: Narrative: General General appearance: Present alert and in no apparent distress; Absent anxious or appears intoxicated Head Head: Present atraumatic and normocephalic Eye Eye: Present PERRL and EOMI; Absent scleral icterus or nystagmus ENT ENT: Present mucous membranes moist; Absent nasal congestion Neck Neck: Present full ROM; Absent tenderness Chest Chest: Present normal inspection and symmetric chest wall rise Respiratory Respiratory: Present normal lung sounds bilaterally; Absent respiratory distress or accessory muscle use Cardiovascular Cardiovascular: Present regular rate, normal rhythm and normal heart sounds Adbominal Abdominal: Present soft, tenderness (Left lower quadrant) and normal bowel sounds; Absent distention Rectal Rectal: Present heme (+) stool Extremities Extremities: Present normal inspection and full ROM Back Back: Present normal inspection and full ROM Neurological Neurological: Present alert, oriented X3, CN II-XII intact, normal gait and reflexes normal; Absent motor sensory deficit Psychiatric Psychiatric: Present normal affect and normal mood Skin Skin: Present warm (WNL), dry and normal color Course Vital Signs Vital signs: Vital Signs Temperature 97.6 F 02/20/22 12:26 Pulse Rate 108 H 02/20/22 12:26 Respiratory Rate 15 02/20/22 12:26 Blood Pressure 136/110 02/20/22 12:26 Pulse Oximetry (%) 100 02/20/22 12:26 Oxygen Delivery Method 02/20/22 12:26 Temperature 97.4 F 02/21/22 16:01 Pulse Rate 103 H 02/21/22 17:01 Respiratory Rate 17 02/21/22 18:01 Blood Pressure 151/89 02/21/22 18:01 Pulse Oximetry (%) 97 02/21/22 17:01 Oxygen Delivery Method 02/21/22 08:00 [facility] MDM Narrative Medical decision making narrative: Narrative: Patient is a 66-year-old male who presents due to weakness, lightheadedness, falls, and blood in his stool. Patient's labs are significant for leukocytosis, hyponatremia, and BAMBI with a creatinine of 2.9. CT scan demonstrates bowel wall thickening at the terminal aspect of the transverse colon and the entire ascending colon. There was concern that this could be due to ischemic colitis. I spoke to Melany Santiago with gastroenterology who stated that she felt this could be due to ischemic colitis. Patient's lactate is normal at this time decreasing concern for ischemic coliti s. There is concern for infectious colitis. Given patient's white blood cell count, CT findings, and heart rate there is concern for sepsis secondary to colitis. Patient has received antibiotics. He has received fluids. I have spoken to hospitalist was agreed to see and evaluate this patient for admission. Lab Data Result diagrams: 02/21/22 05:54 02/21/22 05:54 Labs: Lab Results 02/20/22 02/20/22 02/20/22 Range/Units 13:15 13:17 13:18 WBC 18.0 H (4.5-11.0) K/mcL RBC 4.41 L (4.63-6.08) M/mcL Hgb 13.7 (13.7-17.5) g/dL Hct 40.7 (40.1-51.0) % POC Hct 44.0 (41-55) MCV 92.3 (80.0-100.0) fL MCH 31.1 (26.0-34.0) pg MCHC 33.7 (31.0-36.0) g/dL RDW 12.8 (11.5-14.5) % Plt Count 330 (140-440) K/mcL MPV 9.1 (7.4-10.4) fL Immature Gran % (Auto) 0.9 H (0.0-0.5) % Neut % (Auto) 81.8 H (38.0-78.0) % Lymph % (Auto) 4.9 L (15.5-49.0) % [place] % (Auto) 12.0 (1.0-12.0) % Eos % (Auto) 0.2 (0.0-7.0) % Baso % (Auto) 0.2 (0.0-2.0) % Lymph # (Auto) 0.88 L (1.50-4.80) K/mcL [place] # (Auto) 2.16 H (0.10-0.90) K/mcL Eos # (Auto) 0.03 (0.00-0.70) K/mcL Baso # (Auto) 0.04 (0.00-0.30) K/mcL Immature Gran # 0.16 H (0.00-0.05) K/mcl Absolute Neutrophils 14.77 H (1.80-8.00) K/mcL POC VBG pH (7.32-7.42) POC VBG pCO2 at Temp (41-51) POC VBG pO2 (25-40) POC VBG HCO3 (24-28) POC VBG Total CO2 (25-29) POC Venous O2 Sat (40-70) POC VBG Base Excess (-2-2) VBG Lactic Acid (0.5-2.0) mmol/L POC Sodium 131 L (133-145) POC Potassium 4.6 (3.3-5.1) POC Chloride 97 (96-108) POC Total CO2 21.0 L (22-30) POC BUN 35 H (6-20) POC Creatinine 2.9 H (0.6-1.2) POC Glucose 121 H (70-105) POC WB Ioniz Calcium 1.19 (1.16-1.32) Total Bilirubin (0.1-1.0) mg/dL Direct Bilirubin (0-0.3) mg/dL AST (<40) U/L ALT (<40) U/L Alkaline Phosphatase (39-117) U/L Total Protein (5.9-8.4) gm/dL Albumin (3.2-5.2) gm/dL Globulin (2.2-3.7) gm/dL Lipase (7-60) U/L Procalcitonin (<0.10) ng/mL POC Troponin I 0.03 (0.02-0.08) 02/20/22 02/20/22 02/20/22 Range/Units 13:18 15:47 15:47 WBC (4.5-11.0) K/mcL RBC (4.63-6.08) M/mcL Hgb (13.7-17.5) g/dL Hct (40.1-51.0) % POC Hct (41-55) MCV (80.0-100.0) fL MCH (26.0-34.0) pg MCHC (31.0-36.0) g/dL RDW (11.5-14.5) % Plt Count (140-440) K/mcL MPV (7.4-10.4) fL Immature Gran % (Auto) (0.0-0.5) % Neut % (Auto) (38.0-78.0) % Lymph % (Auto) (15.5-49.0) % [place] % (Auto) (1.0-12.0) % Eos % (Auto) (0.0-7.0) % Baso % (Auto) (0.0-2.0) % Lymph # (Auto) (1.50-4.80) K/mcL [place] # (Auto) (0.10-0.90) K/mcL Eos # (Auto) (0.00-0.70) K/mcL Baso # (Auto) (0.00-0.30) K/mcL Immature Gran # (0.00-0.05) K/mcl Absolute Neutrophils (1.80-8.00) K/mcL POC VBG pH (7.32-7.42) POC VBG pCO2 at Temp (41-51) POC VBG pO2 (25-40) POC VBG HCO3 (24-28) POC VBG Total CO2 (25-29) POC Venous O2 Sat (40-70) POC VBG Base Excess (-2-2) VBG Lactic Acid 1.3 (0.5-2.0) mmol/L POC Sodium (133-145) POC Potassium (3.3-5.1) POC Chloride (96-108) POC Total CO2 (22-30) POC BUN (6-20) POC Creatinine (0.6-1.2) POC Glucose (70-105) POC WB Ioniz Calcium (1.16-1.32) Total Bilirubin 0.4 (0.1-1.0) mg/dL Direct Bilirubin < 0.2 (0-0.3) mg/dL AST 23 (<40) U/L ALT 24 (<40) U/L Alkaline Phosphatase 86 (39-117) U/L Total Protein 7.1 (5.9-8.4) gm/dL Albumin 3.3 (3.2-5.2) gm/dL Globulin 3.8 H (2.2-3.7) gm/dL Lipase 31 (7-60) U/L Procalcitonin 1.12 H (<0.10) ng/mL POC Troponin I (0.02-0.08) 02/20/22 Range/Units 15:51 WBC (4.5-11.0) K/mcL RBC (4.63-6.08) M/mcL Hgb (13.7-17.5) g/dL Hct (40.1-51.0) % POC Hct (41-55) MCV (80.0-100.0) fL MCH (26.0-34.0) pg MCHC (31.0-36.0) g/dL RDW (11.5-14.5) % Plt Count (140-440) K/mcL MPV (7.4-10.4) fL Immature Gran % (Auto) (0.0-0.5) % Neut % (Auto) (38.0-78.0) % Lymph % (Auto) (15.5-49.0) % [place] % (Auto) (1.0-12.0) % Eos % (Auto) (0.0-7.0) % Baso % (Auto) (0.0-2.0) % Lymph # (Auto) (1.50-4.80) K/mcL [place] # (Auto) (0.10-0.90) K/mcL Eos # (Auto) (0.00-0.70) K/mcL Baso # (Auto) (0.00-0.30) K/mcL Immature Gran # (0.00-0.05) K/mcl Absolute Neutrophils (1.80-8.00) K/mcL POC VBG pH 7.36 (7.32-7.42) POC VBG pCO2 at Temp 38.8 L (41-51) POC VBG pO2 29 (25-40) POC VBG HCO3 22.0 L (24-28) POC VBG Total CO2 23.0 L (25-29) POC Venous O2 Sat 53.0 (40-70) POC VBG Base Excess -3.0 L (-2-2) VBG Lactic Acid 1.4 (0.5-2.0) mmol/L POC Sodium (133-145) POC Potassium (3.3-5.1) POC Chloride (96-108) POC Total CO2 (22-30) POC BUN (6-20) POC Creatinine (0.6-1.2) POC Glucose (70-105) POC WB Ioniz Calcium (1.16-1.32) Total Bilirubin (0.1-1.0) mg/dL Direct Bilirubin (0-0.3) mg/dL AST (<40) U/L ALT (<40) U/L Alkaline Phosphatase (39-117) U/L Total Protein (5.9-8.4) gm/dL Albumin (3.2-5.2) gm/dL Globulin (2.2-3.7) gm/dL Lipase (7-60) U/L Procalcitonin (<0.10) ng/mL POC Troponin I (0.02-0.08) Discharge Plan Patient/Caregiver Discharge Instructions Pt seen by EGG PROCESSOR/PA only: No Clinical Impression: Sepsis Patient Disposition: Xfer As Inpt ([facility]) Condition: Good Discharge Date/Time: 02/20/22 18:56
[2022-02-20 13:22] LABS: POC Calcium, Ionized 1.19 (1.16-1.32); POC Creatinine 2.9 (0.6-1.2); POC Potassium 4.6 (3.3-5.1)
[2022-02-20 13:47] LABS: Basophils # (Auto) 0.04 K/mcL (0.00-0.30); Basophils % (Auto) 0.2 % (0.0-2.0); Eosinophils # (Auto) 0.03 K/mcL (0.00-0.70); Eosinophils % (Auto) 0.2 % (0.0-7.0); Hematocrit 40.7 % (40.1-51.0); Hemoglobin 13.7 g/dL (13.7-17.5); Lymphocytes # (Auto) 0.88 K/mcL (1.50-4.80); Lymphocytes % (Auto) 4.9 % (15.5-49.0); Mean Cell Volume 92.3 fL (80.0-100.0); Mean Corpuscular HGB Conc 33.7 g/dL (31.0-36.0); Mean Platelet Volume 9.1 fL (7.4-10.4); Monocytes # (Auto) 2.16 K/mcL (0.10-0.90); Neutrophils % (Auto) 81.8 % (38.0-78.0); Platelet Count 330 K/mcL (140-440); RBC 4.41 M/mcL (4.63-6.08); Red Cell Distribution Width 12.8 % (11.5-14.5)
[2022-02-20 14:05] LABS: ALT/SGPT 24 U/L (<40); AST/SGOT 23 U/L (<40); Albumin 3.3 gm/dL (3.2-5.2); Alkaline Phosphatase 86 U/L (39-117); Bilirubin,Direct < 0.2 mg/dL (0-0.3); Bilirubin,Total 0.4 mg/dL (0.1-1.0); Globulin 3.8 gm/dL (2.2-3.7)
[2022-02-20] MEDS ORDERED: morphine 4 MG/ML VIAL IV ONE (14:08)
[2022-02-20] MEDS ORDERED: ONDANSETRON 4 MG/2 ML VIAL IV ONE (14:08)
--- NOTE | 2022-02-20 14:23 | Cat Scan Report ---
CLINICAL INFORMATION: Abdominal pain COMPARISON: None. TECHNIQUE: 0.625 mm helical slices were obtained from the mid heart through the subtrochanteric regions. Following reconstruction, 2.5 mm sagittal, coronal and axial reformatted images were processed and reviewed at bone and soft tissue windows.The exam was performed using radiation dose optimization techniques including, but not limited to, automated exposure control, adjustment of the mA and/or kV according to patient size and use of iterative reconstruction technique. FINDINGS: The lung bases are clear. No effusions. The visualized heart is grossly normal in size. This calcification in aortic and mitral valves.. Abdominal images show the noncontrasted gallbladder and bile ducts, liver, adrenal glands, spleen, and aorta are normal in size, configuration and attenuation without focal lesion. Pancreas is mildly atrophic with fat replacement in the head neck and proximal body. There is no free air or adenopathy. Both kidneys are normal in attenuation and position. Both kidneys are mildly atrophic: The right is 8.6 cm in length and the left is 8.1 cm in length. A 17 mm simple cyst seen in the superior pole the left kidney. A 5 mm simple cyst lateral mid right kidney. Pelvic images show the prostate is mildly enlarged with a transverse dimension 4.2 cm. Mild diffuse urinary bladder wall thickening may be related to chronic bladder outlet narrowing from prostatism. Small amount of free fluid on the deep true pelvis. There is moderate concentric wall thickening of the distal transverse and the entire descending colon with edema in the pericolonic fat. The remaining large bowel, retrocecal appendix, small bowel and stomach are grossly normal. Bone windows show moderate degenerative change in the lower lumbar spine. No focal osseous lesion. IMPRESSION: 1. Moderate concentric wall thickening of the distal transverse and descending colon with pericolonic edema. This pattern is most compatible with ischemic colitis. Infectious colitis and inflammatory bowel disease are possible, but less likely, given its location. Consider GI referral for colonoscopy. 2. Small amount of free fluid in the deep true pelvis likely related to colonic inflammation. 3. Mild atrophy both kidneys. 4 mm simple cyst mid right kidney 17 mm simple cyst superior pole left kidney 4. Mild pancreatic atrophy. Interpreted and Authenticated by: Manohar Espinoza 02/20/22
[2022-02-20] MEDS ORDERED: PIPERACILLIN SODIUM/TAZOBACTAM 4.5 GM in DEXTROSE 5% IN WATER 50 ML IV ONE (14:48)
[2022-02-20] MEDS ORDERED: 0.9 % SODIUM CHLORIDE 1,000 ML IV ONE ×2 (14:48→16:21)
--- NOTE | 2022-02-20 18:25 | Internal Med History&Physical ---
HPI History of Present Illness Patient information: Note initiated : 02/20/22 at 5:59 pm Service Date, if different from initiated Date: [] Patient: Isaac Russo a 66 y/o M admitted on for Failure to thrive. Chief Complaint: [] History of present illness: Mr. Russo is a 66 year old male with multiple comorbidities including a history of alcohol use disorder, chronic kidney disease, COPD who presented to the emergency department because he was unable to take care of himself at home. The patient is not a good historian and unable to provide more detailed information except that he is he has generally weak and having difficulty ambulating. When specifically asked the patient says that he does have abdominal pain which is been present for some time and also has had some bloody bowel movements. The patient also has what appears to be chronic musculoskeletal pain, specifically in his left hip and right shoulder. Patient also says that he has difficulty urinating and has been told he may need a Pereira catheter at some time. In the emergency department, the patient was tachycardic and intermittently hypotensive. There was no respiratory distress, he was saturating well on room air. EKG showed sinus rhythm. Laboratory workup shows a new leukocytosis of 18,000, increased neutrophils, sodium of 131, creatinine of 2.9 with a BUN of 35. LFTs were normal. Procalcitonin was elevated at 1.12. Noncontrast CT abdomen and pelvis revealed moderate concentric wall thickening of the distal transverse and descending colon with pericolonic edema. This pattern is most consistent with ischemic colitis per radiology report, infectious colitis and inflammatory bowel disease are felt to be a less likely cause of colitis in this case. Hospital medicine was consulted for admission. Upon examination, the patient is disheveled and appears to be malnourished. He does elicit abdominal tenderness however no rebound tenderness or guarding. There is evidence of peripheral arterial disease in bilateral lower extremities, left greater than right. The patient has a broad based when attempting to ambulate. His main concern is that he is unable to take care of himself at home due to generalized weakness. The patient did not mention abdominal pain until I asked him specifically about his abdomen. The patient will be admitted for colitis likely secondary to ischemic colitis, IV fluids, empiric antibiotics, supportive care, PT and OT. The patient will likely require to a shelter facility for rehab when he is discharged. The patient was last hospitalized at [facility] in November, for hyponatremia, generalized weakness and falls felt to be related to alcohol. The patient was treated for alcohol withdrawal and eventually discharged to a shelter facility for rehab. Review of systems Constitutional: Positive for chills, fatigue, weight loss Eyes: no vision changes or pain Cardiovascular: no chest pain, no palpitations Respiratory: no cough or dyspnea Gastrointestinal: Positive for abdominal pain, bloody bowel movements Genitourinary: Positive for difficulty voiding Musculoskeletal: Positive for diffuse arthralgia, particularly left hip and right shoulder Integumentary: Positive for skin wounds on bilateral lower extremities Neurological: Positive for difficulty walking Psychiatric: Positive for depressed mood Physical exam Head: Atraumatic, normal inspection. Eyes: normal appearance, no scleral icterus. Neck: full ROM Respiratory: no respiratory distress. Cardiovascular: Regular tachycardia, S1, S2. GI/Abdominal: Mildly distended, tender to palpation, no guarding or rebound tenderness Extremities: f diffuse muscle atrophy, bilateral lower extremity rubor, decreased pulses consistent with peripheral arterial disease. Neurological: CN II-XII intact, intact motor, intact sensation, broad-based gait when ambulating Psychiatric: Depressed mood Skin: Bilateral lower extremity skin wounds do not appear infected. PFSH PFSH All Active Problems (Updated 02/10/22 @ 20:09 by MACI Celaya) Olecranon bursitis of right elbow (Acute) Scabies (Acute) Infected elbow (Acute) Urinary tract infection (Acute) Acute dehydration (Acute) Wrist fracture (Acute) Acute metabolic encephalopathy (Acute) BAMBI (acute kidney injury) (Acute) Lactic acidosis (Acute) Toxic metabolic encephalopathy (Acute) Acute dehydration (Acute) Acute hyponatremia (Acute) Seizure (Acute) Acute alteration in mental status (Acute) alf prescription opiate use (Chronic) Opioid dependence (Chronic) Chronic pain (Chronic) Primary generalized (osteo)arthritis (Chronic) Monoclonal gammopathy (Chronic) Abdominal hernia (Chronic) Mixed hyperlipidemia (Chronic) Dermatitis, seborrheic (Chronic) Deviated nasal septum (Chronic) Edema (Chronic) Shoulder pain, bilateral (Chronic) Left lumbar radiculopathy (Chronic) Right cervical radiculopathy (Chronic) Cramp of limb (Chronic) Rib pain on left side (Chronic) Elevated d-dimer (Chronic) Anemia (Chronic) Hyponatremia (Chronic) Elevated troponin (Chronic) Near syncope (Chronic) Depressed mood (Chronic) Lumbar post-laminectomy syndrome (Chronic) Low back pain (Chronic) Hypomagnesemia (Chronic) Vitamin D deficiency (Chronic) Benign prostatic hyperplasia without lower urinary tract symptoms (Chronic) Generalized anxiety disorder (Chronic) Alcohol abuse (Chronic) Mild recurrent major depression (Chronic) Pain in right leg (Chronic) Chronic kidney disease, stage 3 (moderate) (Chronic) 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) Tinea capitis (Chronic) Numbness and tingling of both upper extremities while sleeping (Chronic) Neck pain (Chronic) Interscapular pain (Chronic) Internal thrombosed hemorrhoids (Chronic) Disorder of tendon of biceps (Chronic) Disorder of rotator cuff (Chronic) Constipation (Chronic) Cervical radicular pain (Chronic) 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) Spinal stenosis in cervical region (Chronic) Stomach ulcer (Chronic) Hypertension, essential (Chronic) Asthma (Chronic) Acid reflux (Chronic) Medical History (Updated 02/10/22 @ 20:09 by MACI Celaya) Abdominal hernia Acid reflux 1996 Alcohol abuse Anemia Arthropathy of shoulder region Asthma Since 4 years old Benign prostatic hyperplasia without lower urinary tract symptoms Cervical fusion syndrome Cervical radicular pain Chronic kidney disease, stage 3 (moderate) Chronic pain Constipation Cramp of limb Depressed mood Dermatitis, seborrheic Deviated nasal septum Disorder of rotator cuff Disorder of tendon of biceps Edema Elevated d-dimer Elevated troponin Generalized anxiety disorder Hypertension, essential Hypomagnesemia Hyponatremia Internal thrombosed hemorrhoids Interscapular pain Left lumbar radiculopathy long term 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 Luan STEVENSON in [place]. H/O laminectomy 04/1979 L4-5 due to paralysis/pain left leg 02/1989 L4-5 due to paralysis left leg-recurred 07/1992 L4-5 successful in relieving pain H/O shoulder surgery 07/2013 Left shoulder rebuild-PT was too aggressive in early part of recovery and so surgery was not successful. History of carpal tunnel surgery Right x 2 History of gastric surgery 1996 Successful removal of pyloric obstruction since Hx of cervical spine surgery 11/2014 C5, C6, C7 wired in cage. Still has right arm/hand pain and right arm/hand atrophy. Can't use right hand. Family History Father Liver cancer Pancreas cancer Mother Migraines Depression Sister Depression Social History marital status: smoking status: Never smoker alcohol intake frequency: a few times a week substance use type: does not use MEDS/ALLERGIES Home Medications and Allergies Home Medications Medication Instructions Recorded Confirmed Type bupropion HCl 150 mg 24 hr tablet, 450 mg PO QAM 09/20/19 02/01/22 History extended release buspirone 10 mg tablet 20 mg PO TID 09/20/19 02/01/22 History hydroxyzine HCl 25 mg tablet 25 mg PO QHS 09/20/19 02/01/22 History bisoprolol fumarate 5 mg tablet 2 tab PO QDAY 11/12/21 02/01/22 History cholecalciferol (vitamin D3) 50 100 mcg PO DAILY 11/12/21 02/01/22 History mcg (2,000 unit) tablet fluticasone 500 mcg-salmeterol 50 1 inh inhalation BID 11/12/21 02/01/22 History mcg/dose blistr powdr for inhalation (Advair Diskus) tamsulosin 0.4 mg capsule 0.8 mg PO QHS 11/12/21 02/01/22 History acetaminophen 500 mg tablet 1,000 mg PO TID #90 tabs 11/15/21 02/01/22 Rx hydrocortisone 1 % topical cream 1 applic topical TIDP PRN Skin 11/15/21 02/01/22 Rx Irritation #28.35 grams acetaminophen 500 mg capsule 500 mg PO Q6H PRN pain #30 caps 02/01/22 02/01/22 Rx diphenhydramine HCl 2 % topical 1 applic topical BID PRN itching 02/01/22 02/01/22 Rx gel (Anti-Itch (diphenhydramine)) #118 mL permethrin 5 % topical cream 1 applic topical Q14D scabies 2 02/01/22 02/01/22 Rx doses #60 grams sulfamethoxazole 800 1 tab PO BID #20 tabs 02/10/22 Rx mg-trimethoprim 160 mg tablet (Bactrim DS) Allergies Allergy/AdvReac Type Severity Reaction Status Date / Time amlodipine Allergy Severe Difficulty Verified 02/20/22 12:30 Breathing lisinopril Allergy Severe Angioedema Verified 02/20/22 12:30 olmesartan [From Benicar] Allergy Severe Angioedema Verified 02/20/22 12:30 tramadol Allergy Intermediate Kidney Verified 02/20/22 12:30 Injury benzocaine Allergy Mild Rash Verified 02/20/22 12:30 gabapentin Allergy Mild Rash Verified 02/20/22 12:30 ketorolac [From Toradol] Allergy Mild Rash Verified 02/20/22 12:30 lidocaine Allergy Mild Rash Verified 02/20/22 12:30 tetracaine Allergy Mild Rash Verified 02/20/22 12:30 tetracycline [Tetracycline] Allergy Mild Rash Verified 02/20/22 12:30 amitriptyline Allergy Unknown Unknown Verified 02/20/22 12:30 NSAIDS (Non-Steroidal Allergy Unknown Other Verified 02/20/22 12:30 Anti-Inflamma pregabalin [From Lyrica] AdvReac Mild Right hand Verified 02/20/22 12:30 shakes, feels weak dust mite Allergy Intermediate Wheezing Uncoded 02/01/22 08:59 EXAM Constitutional Vitals: Temp Pulse Resp BP Pulse Ox O2 Del Method 97.6 F 97 H 15 100/81 93 02/20/22 12:26 02/20/22 17:22 02/20/22 12:26 02/20/22 17:31 02/20/22 17:22 02/20/22 12:26 DATA Data Completed and Pending Labs: Labs from last 24 hours 02/20/22 02/20/22 02/20/22 15:51 15:47 15:47 WBC RBC Hgb Hct POC Hct MCV MCH MCHC RDW Plt Count MPV Immature Gran % (Auto) Neut % (Auto) Lymph % (Auto) Evans % (Auto) Eos % (Auto) Baso % (Auto) Lymph # (Auto) Evans # (Auto) Eos # (Auto) Baso # (Auto) Immature Gran # Absolute Neutrophils POC VBG pH 7.36 POC VBG pCO2 at Temp 38.8 L POC VBG pO2 29 POC VBG HCO3 22.0 L POC VBG Total CO2 23.0 L POC Venous O2 Sat 53.0 POC VBG Base Excess -3.0 L VBG Lactic Acid 1.4 1.3 POC Sodium POC Potassium POC Chloride POC Total CO2 POC BUN POC Creatinine POC Glucose POC WB Ioniz Calcium Total Bilirubin Direct Bilirubin AST ALT Alkaline Phosphatase Total Protein Albumin Globulin Lipase Procalcitonin 1.12 H POC Troponin I 02/20/22 02/20/22 02/20/22 13:18 13:18 13:17 WBC 18.0 H RBC 4.41 L Hgb 13.7 Hct 40.7 POC Hct 44.0 MCV 92.3 MCH 31.1 MCHC 33.7 RDW 12.8 Plt Count 330 MPV 9.1 Immature Gran % (Auto) 0.9 H Neut % (Auto) 81.8 H Lymph % (Auto) 4.9 L Evans % (Auto) 12.0 Eos % (Auto) 0.2 Baso % (Auto) 0.2 Lymph # (Auto) 0.88 L Evans # (Auto) 2.16 H Eos # (Auto) 0.03 Baso # (Auto) 0.04 Immature Gran # 0.16 H Absolute Neutrophils 14.77 H POC VBG pH POC VBG pCO2 at Temp POC VBG pO2 POC VBG HCO3 POC VBG Total CO2 POC Venous O2 Sat POC VBG Base Excess VBG Lactic Acid POC Sodium 131 L POC Potassium 4.6 POC Chloride 97 POC Total CO2 21.0 L POC BUN 35 H POC Creatinine 2.9 H POC Glucose 121 H POC WB Ioniz Calcium 1.19 Total Bilirubin 0.4 Direct Bilirubin < 0.2 AST 23 ALT 24 Alkaline Phosphatase 86 Total Protein 7.1 Albumin 3.3 Globulin 3.8 H Lipase 31 Procalcitonin POC Troponin I 02/20/22 13:15 WBC RBC Hgb Hct POC Hct MCV MCH MCHC RDW Plt Count MPV Immature Gran % (Auto) Neut % (Auto) Lymph % (Auto) Evans % (Auto) Eos % (Auto) Baso % (Auto) Lymph # (Auto) Evans # (Auto) Eos # (Auto) Baso # (Auto) Immature Gran # Absolute Neutrophils POC VBG pH POC VBG pCO2 at Temp POC VBG pO2 POC VBG HCO3 POC VBG Total CO2 POC Venous O2 Sat POC VBG Base Excess VBG Lactic Acid POC Sodium POC Potassium POC Chloride POC Total CO2 POC BUN POC Creatinine POC Glucose POC WB Ioniz Calcium Total Bilirubin Direct Bilirubin AST ALT Alkaline Phosphatase Total Protein Albumin Globulin Lipase Procalcitonin POC Troponin I 0.03 A/P Narrative A/P Narrative: Assessment: 66 year old male with a past medical history of alcohol use disorder, chronic kidney disease, COPD, peripheral vascular disease, osteoarthritis now admitted for colitis involving the distal transverse and descending colon which is likely ischemic colitis as well as generalized weakness and failure to thrive. #Distal transverse and descending colitis, likely ischemic versus less likely infectious colitis #SIRS, possible sepsis #Acute on chronic kidney disease injury #Mild hyponatremia #Generalized weakness/gait abnormality #Failure to thrive with probably moderate to severe malnourishment #COPD, stable #Urinary retention #History of alcohol use disorder #History of hypertension #Peripheral vascular disease Plan -IV fluid, empiric ceftriaxone and IV metronidazole. -Follow WBC, obtain blood cultures, UA with reflex to culture. -Monitor urine output, renal function, electrolytes. -Analgesics as needed. -Monitor for diarrhea, consider C. difficile screen if the patient has diarrhea. -Daily abdominal examination, consider repeat CT scan if the patient does not improve with conservative management. -Consider GI consult if the patient does not improve with conservative management. -Home medication reconciliation, continue important meds. -High-dose thiamine IV for possible Warnicke's. -Bladder scan Qshift, straight cath prn for urinary retention. -Monitor for signs of alcohol withdrawal. 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 -Clear liquid diet for now due to colitis. -DVT prophylaxis: Heparin SQ -Disposition: Probably low intensity rehab when the patient is stable. Time Spent With Patient Time: Total time spent is greater than 50% in coordination of care (as documented) at patient's floor/unit and/or counseling patient:
[2022-02-20] MEDS ORDERED: ONDANSETRON 4 MG/2 ML VIAL IV PRN (18:58)
[2022-02-20] MEDS ORDERED: LACTULOSE 20 GM/30 ML ORAL.SOL PO PRN (18:58)
[2022-02-20] MEDS ORDERED: HYDROmorphone 0.5 MG/0.5 ML SYRINGE IV PRN (18:58)
[2022-02-20] MEDS ORDERED: SENNOSIDES 1 TABLET PO PRN (18:58)
[2022-02-20] MEDS ORDERED: HYDROcodone/APAP 5/325MG TABLET PO ONE (20:12)
[2022-02-20] MEDS: DOCUSATE SODIUM 100 MG CAPSULE PO SCH (20:19)
[2022-02-20] MEDS: HEPARIN 5,000 UNIT/ML VIAL SQ SCH (20:43)
[2022-02-20] MEDS ORDERED: THIAMINE 100 MG/ML VIAL ONE (20:59)
[2022-02-20] MEDS: 0.9 % SODIUM CHLORIDE 10 ML SYRINGE IV SCH ×2 (21:02→22:12)
[2022-02-20] MEDS: 0.9 % SODIUM CHLORIDE 1,000 ML IV SCH (21:02)
[2022-02-20] MEDS: THIAMINE 300 MG in 0.9 % SODIUM CHLORIDE 50 ML IV SCH (21:35)
[2022-02-20] MEDS: LORazepam 2 MG/ML VIAL IV PRN (21:36)
[2022-02-20] MEDS ORDERED: LORazepam 2 MG/ML VIAL ONE (21:37)
[2022-02-20 22:21] LABS: Appearance,Urine Clear (Clear); Bilirubin,Urine Negative (Negative); Color,Urine Yellow; Culture Indicated,Urine No; Glucose,Urine (UA) Negative (Negative); Ketones,Urine Trace mg/dL (Negative); Leukocyte Esterase,Urine Negative /uL (Negative); Mucus,Urine FEW /hpf; Nitrate,Urine Negative (Negative); PH,Urine 5.5 (5.0-9.0); Specific Gravity,Urine >= 1.030 (1.000-1.035); Urine Blood Negative ery/mcL (Negative); Urine Hyaline Cast 4 /lph (0-2); Urine RBC 0 /hpf (0-3); Urine Squamous Epithelial Cell 0 /hpf (0-4); Urine WBC 2 /hpf (0-4); Urobilinogen,Urine Normal
[2022-02-21] MEDS: LORazepam 2 MG/ML VIAL IV PRN ×2 (00:25→20:55)
[2022-02-21] MEDS: 0.9 % SODIUM CHLORIDE 1,000 ML IV SCH ×5 (02:25→17:58)
[2022-02-21] MEDS: 0.9 % SODIUM CHLORIDE 10 ML SYRINGE IV SCH ×4 (05:30→21:00)
[2022-02-21] MEDS: metroNIDAZOLE 500 MG/100 ML BAG IV SCH ×3 (05:42→20:55)
[2022-02-21 06:49] LABS: Basophils # (Auto) 0.06 K/mcL (0.00-0.30); Basophils % (Auto) 0.5 % (0.0-2.0); Eosinophils # (Auto) 0.31 K/mcL (0.00-0.70); Eosinophils % (Auto) 2.4 % (0.0-7.0); Hematocrit 34.4 % (40.1-51.0); Hemoglobin 10.9 g/dL (13.7-17.5); Lymphocytes # (Auto) 0.81 K/mcL (1.50-4.80); Lymphocytes % (Auto) 6.3 % (15.5-49.0); Mean Cell Volume 97.5 fL (80.0-100.0); Mean Corpuscular HGB Conc 31.7 g/dL (31.0-36.0); Monocytes # (Auto) 1.15 K/mcL (0.10-0.90); Monocytes % (Auto) 8.9 % (1.0-12.0); Neutrophils % (Auto) 79.3 % (38.0-78.0); Platelet Count 241 K/mcL (140-440); RBC 3.53 M/mcL (4.63-6.08); Red Cell Distribution Width 13.2 % (11.5-14.5); WBC 12.9 K/mcL (4.5-11.0)
[2022-02-21 07:07] LABS: ALT/SGPT 15 U/L (<40); AST/SGOT 17 U/L (<40); Albumin 2.3 gm/dL (3.2-5.2); Albumin/Globulin Ratio 0.7 (1.0-2.3); Alkaline Phosphatase 65 U/L (39-117); Bilirubin,Direct < 0.2 mg/dL (0-0.3); Bilirubin,Total 0.2 mg/dL (0.1-1.0); Blood Urea Nitrogen 35 mg/dL (8-23); Calcium 8.4 mg/dL (8.6-10.4); Carbon Dioxide 17 mmol/L (22-30); Chloride 103 mmol/L (96-108); Globulin 3.2 gm/dL (2.2-3.7); Glomerular Filtration Rate 24; Glucose 64 mg/dL (70-105); Lactate Dehydrogenase 160 U/L (135-225); Phosphorous 3.3 mg/dL (2.5-4.5); Triglycerides 88 mg/dL (<150); Uric Acid 8.6 mg/dL (2.5-8.0)
[2022-02-21] MEDS ORDERED: cefTRIAXone 1 GM VIAL IV SCH ×2 (09:00)
[2022-02-21] MEDS: THIAMINE 300 MG in 0.9 % SODIUM CHLORIDE 50 ML IV SCH ×3 (09:13→21:49)
[2022-02-21] MEDS: HEPARIN 5,000 UNIT/ML VIAL SQ SCH ×3 (09:13→20:59)
[2022-02-21] MEDS: DOCUSATE SODIUM 100 MG CAPSULE PO SCH ×2 (09:13→20:59)
--- NOTE | 2022-02-21 10:08 | EKG ---
[facility] Minor Care Test Date: 2022-02-20 Pat Name: Isaac Russo Department: ED Room: Gender: Male [employer]: : [id number] Requested By: Renny Collado Order Number: [id number] Reading MD: Isaac Galicia Measurements Intervals Bradley Rate: 98 P: 49 WI: 184 QRS: -4 QRSD: 85 T: 103 QT: 359 QTc: 459 Interpretive Statements Sinus rhythm Abnormal R-wave progression, early transition Borderline T wave abnormalities Baseline wander in lead(s) V1 Electronically Signed On 02-21-2022 10:07:41 PDT by Isaac Galicia /store/M0/[id number]
[2022-02-21] MEDS: cefTRIAXone 2 GM in DEXTROSE 5% IN WATER 50 ML IV SCH (10:34)
--- NOTE | 2022-02-21 13:11 | Internal Med Progress Note ---
SUBJECTIVE Subjective Patient information: Note initiated : 02/21/22 at 1:08 pm Service Date, if different from initiated Date: [] Patient: Isaac Russo 66 y/o M admitted on 02/20/22 for Failure to thrive. Chief Complaint: [] Interval history: Mr. Russo is a 66 year old male with multiple comorbidities including a history of alcohol use disorder, chronic kidney disease, COPD who presented to the emergency department because he was unable to take care of himself at home. The patient is not a good historian and unable to provide more detailed information except that he is he has generally weak and having difficulty ambulating. When specifically asked the patient says that he does have abdominal pain which is been present for some time and also has had some bloody bowel movements. The patient also has what appears to be chronic musculoskeletal pain, specifically in his left hip and right shoulder. Patient also says that he has difficulty urinating and has been told he may need a Pereira catheter at some time. In the emergency department, the patient was tachycardic and intermittently hypotensive. There was no respiratory distress, he was saturating well on room air. EKG showed sinus rhythm. Laboratory workup shows a new leukocytosis of 18,000, increased neutrophils, sodium of 131, creatinine of 2.9 with a BUN of 35. LFTs were normal. Procalcitonin was elevated at 1.12. Noncontrast CT abdomen and pelvis revealed moderate concentric wall thickening of the distal transverse and descending colon with pericolonic edema. This pattern is most consistent with ischemic colitis per radiology report, infectious colitis and in flammatory bowel disease are felt to be a less likely cause of colitis in this case. Hospital medicine was consulted for admission. Upon examination, the patient is disheveled and appears to be malnourished. He does elicit abdominal tenderness however no rebound tenderness or guarding. There is evidence of peripheral arterial disease in bilateral lower extremities, left greater than right. The patient has a broad based when attempting to ambulate. His main concern is that he is unable to take care of himself at home due to generalized weakness. The patient did not mention abdominal pain until I asked him specifically about his abdomen. The patient will be admitted for colitis likely secondary to ischemic colitis, IV fluids, empiric antibiotics, supportive care, PT and OT. The patient will likely require to a long term facility for rehab when he is discharged. The patient was last hospitalized at [facility] in November, for hyponatremia, generalized weakness and falls felt to be related to alcohol. The patient was treated for alcohol withdrawal and eventually discharged to a long term facility for rehab. 02/21 Vital signs stable overnight, the patient was started on the CIWA protocol last night for alcohol withdrawal but symptoms are mild. The patient feels better today, abdominal discomfort improving. Renal function improving. Continue IV antibiotics, decreased IV NS to 75 mils per hour. Physical exam Head: Atraumatic, normal inspection. Eyes: normal appearance, no scleral icterus. Neck: full ROM Respiratory: no respiratory distress. Cardiovascular: Normal rate and rhythm, S1, S2. GI/Abdominal: Mildly distended, mild tenderness to palpation, no guarding or rebound tenderness Extremities: diffuse muscle atrophy, bilateral lower extremity rubor, decreased pulses consistent with peripheral arterial disease. Neurological: CN II-XII intact, intact motor, intact sensation, broad-based gait when ambulating Psychiatric: Improved mood Skin: Bilateral lower extremity skin wounds do not appear infected. Constitutional Vitals: Vital Signs Temp Pulse Resp BP Pulse Ox O2 Del Method 96.9 F L 86 17 166/92 100 02/21/22 12:13 02/21/22 12:13 02/21/22 12:13 02/21/22 12:13 02/21/22 12:13 02/20/22 21:20 Period Temp Pulse Resp BP Sys/Gan Pulse Ox O2 Del Method O2 Flow Rate Last 24 Hr 96.9 F-98.3 F 77-112 9-21 80-166/50-129 88-100 Room Air-Room Air Intake and Output 02/20/22 02/21/22 02/21/22 21:59 05:59 13:59 Intake Total 2049 1053 203 Output Total 150 345 Balance 1900 1053 -142 Weight 60.373 kg 61.371 kg Patient Weight 02/22/22 05:59 Weight 61.371 kg Intake & Output: Intake & Output 02/20/22 02/21/22 02/21/22 21:59 05:59 13:59 Intake Total 2049 1053 203 Output Total 150 345 Balance 1900 1053 -142 Weight 60.373 kg 61.371 kg Intake: IV 2049 105 203 Sodium Chloride 0.9% 1,000 ml @ 2000 1000 150 mls/hr IV .[id number] [facility] Rx#: [id number] Zosyn 4.5 gm In Dextrose 5% in 50 Water 50 ml @ 100 mls/hr IV ONCE ONE Rx#:[id number] Vitamin B1 300 mg In Sodium 53 53 Chloride 0.9% 50 ml @ 50 mls/hr IV Q8H [facility] Rx#:[id number] Rocephin 2 gm In Dextrose 5% in 50 Water 50 ml @ 100 mls/hr IV Q24H [facility] Rx#:[id number] Output: Void Amount 150 345 # of times incontinent of urine 0 Other: Urine Appearance Clear Clear Straight Clear Urine Color Dark Earnestine Bright Yellow Straight Dark Earnestine Urine Odor Normal Normal Straight Normal # Voids 1 OBJ DATA Labs CBC & Chem 7: 02/21/22 05:54 02/21/22 05:54 Labs: Abnormal Lab Results 02/21/22 02/21/22 02/20/22 05:54 05:54 21:19 WBC 12.9 H RBC 3.53 L Hgb 10.9 L Hct 34.4 L Immature Gran % (Auto) 2.6 H Neut % (Auto) 79.3 H Lymph % (Auto) 6.3 L Lymph # (Auto) 0.81 L [place] # (Auto) 1.15 H Immature Gran # 0.34 H Absolute Neutrophils 10.26 H POC VBG pCO2 at Temp POC VBG HCO3 POC VBG Total CO2 POC VBG Base Excess POC Sodium Carbon Dioxide 17 L POC Total CO2 POC BUN BUN 35 H Creatinine 2.6 H POC Creatinine Glucose 64 L POC Glucose Uric Acid 8.6 H Calcium 8.4 L GGT 75 H Total Protein 5.5 L Albumin 2.3 L Globulin Albumin/Globulin Ratio 0.7 L Procalcitonin Urine Protein 30 mg/dl A Urine Ketones Trace A Hyaline Casts 4 H Urine Mucus Few A 02/20/22 02/20/22 02/20/22 15:51 15:47 13:18 WBC RBC Hgb Hct Immature Gran % (Auto) Neut % (Auto) Lymph % (Auto) Lymph # (Auto) [place] # (Auto) Immature Gran # Absolute Neutrophils POC VBG pCO2 at Temp 38.8 L POC VBG HCO3 22.0 L POC VBG Total CO2 23.0 L POC VBG Base Excess -3.0 L POC Sodium Carbon Dioxide POC Total CO2 POC BUN BUN Creatinine POC Creatinine Glucose POC Glucose Uric Acid Calcium GGT Total Protein Albumin Globulin 3.8 H Albumin/Globulin Ratio Procalcitonin 1.12 H Urine Protein Urine Ketones Hyaline Casts Urine Mucus 02/20/22 02/20/22 13:18 13:17 WBC 18.0 H RBC 4.41 L Hgb Hct Immature Gran % (Auto) 0.9 H Neut % (Auto) 81.8 H Lymph % (Auto) 4.9 L Lymph # (Auto) 0.88 L [place] # (Auto) 2.16 H Immature Gran # 0.16 H Absolute Neutrophils 14.77 H POC VBG pCO2 at Temp POC VBG HCO3 POC VBG Total CO2 POC VBG Base Excess POC Sodium 131 L Carbon Dioxide POC Total CO2 21.0 L POC BUN 35 H BUN Creatinine POC Creatinine 2.9 H Glucose POC Glucose 121 H Uric Acid Calcium GGT Total Protein Albumin Globulin Albumin/Globulin Ratio Procalcitonin Urine Protein Urine Ketones Hyaline Casts Urine Mucus Meds: Medications Acetaminophen (Acetaminophen 500 Mg Tablet) 500 mg PO Q6HP PRN; Protocol PRN Reason: Per Pain Protocol Hydrocodone Bitart/Acetaminophen (Hydrocodone/Apap 5/325mg Tablet) 1 tab PO Q4HP PRN; Protocol PRN Reason: Per Pain Protocol Docusate Sodium (Docusate Sodium 100 Mg Capsule) 100 mg PO BID [facility] Last Admin: 02/21/22 09:13 Dose: 100 mg Heparin Sodium (Porcine) (Heparin 5,000 Unit/Ml Vial) 5,000 unit SQ Q12 [facility] Last Admin: 02/21/22 09:13 Dose: 5,000 unit Hydromorphone HCl (Hydromorphone 0.5 Mg/0.5 Ml Syringe) 0.5 mg IV Q2HP PRN; Protocol PRN Reason: Per Pain Protocol Metronidazole (Flagyl) 500 mg in 100 mls @ 100 mls/hr IV Q8H [facility]; Protocol Last Infusion: 02/21/22 07:35 Dose: Infused Sodium Chloride (Sodium Chloride 0.9%) 1,000 mls @ 150 mls/hr IV .Q6H40M [facility] Last Admin: 02/21/22 10:47 Dose: Not Given Thiamine HCl 300 mg/ Sodium (Chloride) 53 mls @ 50 mls/hr IV Q8H [facility] Stop: 02/23/22 21:59 Last Infusion: 02/21/22 10:47 Dose: Infused Ceftriaxone Sodium 2 gm/ (Dextrose) 50 mls @ 100 mls/hr IV Q24H [facility] Last Infusion: 02/21/22 11:31 Dose: Infused Lactulose (Lactulose 20 Gm/30 Ml Oral.Nancy) 10 gm PO DAILYP PRN PRN Reason: Constipation Lorazepam (Lorazepam 2 Mg/Ml Vial) 0 mg IV Q4HP PRN; Protocol PRN Reason: Alcohol Withdrawal/Assess CIWA Last Admin: 02/21/22 00:25 Dose: 1 mg Ondansetron HCl (Ondansetron 4 Mg/2 Ml Vial) 4 mg IV Q4HP PRN; Protocol PRN Reason: Nausea And Vomiting Senna (Sennosides 1 Tablet) 2 tab PO HSP PRN PRN Reason: Constipation Sodium Chloride (0.9 % Sodium Chloride 10 Ml Syringe) 10 ml IV Q8 [facility] Last Admin: 02/21/22 05:42 Dose: Not Given Sodium Chloride (0.9 % Sodium Chloride 10 Ml Syringe) 10 ml IV Q8 [facility] Last Admin: 02/21/22 05:30 Dose: Not Given A/P Narrative A/P Narrative: Assessment: 66 year old male with a past medical history of alcohol use disorder, chronic kidney disease, COPD, peripheral vascular disease, osteoarthritis now admitted for colitis involving the distal transverse and descending colon which is likely ischemic colitis as well as generalized weakness and failure to thrive. #Distal transverse and descending colitis, likely ischemic versus less likely infectious colitis #SIRS, possible sepsis #Acute on chronic kidney disease injury #Mild hyponatremia #Generalized weakness/gait abnormality #Failure to thrive with probably moderate to severe malnourishment #COPD, stable #Urinary retention #History of alcohol use disorder #History of hypertension #Peripheral vascular disease Plan -Decrease IV fluid IV to 75 mils per hour, continue empiric ceftriaxone and IV metronidazole for colitis. -Follow WBC, renal function, electrolytes. -Monitor urine output,. -Analgesics as needed. -Monitor for diarrhea, consider C. difficile screen if the patient has diarrhea. -Daily abdominal examination, consider repeat CT scan if the patient does not improve with conservative management. -Consider GI consult if the patient does not improve with conservative manag ement. -High-dose thiamine IV for possible Warnicke's. -Bladder scan Qshift, straight cath prn for urinary retention. -Monitor for signs of alcohol withdrawal. -PT and OT consult -residential monitor. -Advance to full liquid diet. -DVT prophylaxis: Heparin SQ -Disposition: Probably low intensity rehab when the patient is stable. Time Spent With Patient Time: Total time spent is greater than 50% in coordination of care (as documented) at patient's floor/unit and/or counseling patient: QUALITY VTE Deep Vein Thrombosis/Pulmonary Embolism Present on Admission: No
[2022-02-21] MEDS: HYDROcodone/APAP 5/325MG TABLET PO PRN (14:51)
[2022-02-22] MEDS: LORazepam 2 MG/ML VIAL IV PRN ×9 (00:41→21:45)
[2022-02-22] MEDS ORDERED: LABETALOL 5 MG/ML ML IV PRN ×2 (01:57→07:45)
[2022-02-22] MEDS ORDERED: LABETALOL 5 MG/ML ML IV ONE (02:06)
[2022-02-22] MEDS: metroNIDAZOLE 500 MG/100 ML BAG IV SCH ×3 (05:11→21:27)
[2022-02-22] MEDS: 0.9 % SODIUM CHLORIDE 10 ML SYRINGE IV SCH ×3 (05:44→21:27)
[2022-02-22] MEDS: THIAMINE 300 MG in 0.9 % SODIUM CHLORIDE 50 ML IV SCH ×3 (06:01→22:45)
[2022-02-22 07:22] LABS: ALT/SGPT 20 U/L (<40); AST/SGOT 27 U/L (<40); Albumin 2.7 gm/dL (3.2-5.2); Albumin/Globulin Ratio 0.9 (1.0-2.3); Alkaline Phosphatase 91 U/L (39-117); Bilirubin,Direct < 0.2 mg/dL (0-0.3); Bilirubin,Total < 0.2 mg/dL (0.1-1.0); Blood Urea Nitrogen 24 mg/dL (8-23); Calcium 9.1 mg/dL (8.6-10.4); Carbon Dioxide 20 mmol/L (22-30); Chloride 103 mmol/L (96-108); Globulin 3.1 gm/dL (2.2-3.7); Glomerular Filtration Rate 35; Glucose 80 mg/dL (70-105); Lactate Dehydrogenase 301 U/L (135-225); Phosphorous 2.9 mg/dL (2.5-4.5); Triglycerides 82 mg/dL (<150); Uric Acid 7.5 mg/dL (2.5-8.0)
[2022-02-22] MEDS ORDERED: MAGNESIUM SULFATE 2 GM/50 ML BAG IV ONE (08:19)
[2022-02-22] MEDS: DOCUSATE SODIUM 100 MG CAPSULE PO SCH ×2 (08:39→21:27)
[2022-02-22] MEDS: cefTRIAXone 2 GM in DEXTROSE 5% IN WATER 50 ML IV SCH (08:41)
[2022-02-22 09:13] LABS: Basophils # (Auto) 0.07 K/mcL (0.00-0.30); Basophils % (Auto) 0.5 % (0.0-2.0); Eosinophils # (Auto) 0.22 K/mcL (0.00-0.70); Eosinophils % (Auto) 1.6 % (0.0-7.0); Hematocrit 35.1 % (40.1-51.0); Hemoglobin 11.6 g/dL (13.7-17.5); Lymphocytes # (Auto) 0.73 K/mcL (1.50-4.80); Lymphocytes % (Auto) 5.2 % (15.5-49.0); Mean Cell Volume 95.4 fL (80.0-100.0); Mean Platelet Volume 9.6 fL (7.4-10.4); Monocytes # (Auto) 1.63 K/mcL (0.10-0.90); Monocytes % (Auto) 11.7 % (1.0-12.0); Neutrophils % (Auto) 79.8 % (38.0-78.0); Platelet Count 263 K/mcL (140-440); RBC 3.68 M/mcL (4.63-6.08); Red Cell Distribution Width 13.2 % (11.5-14.5); WBC 13.9 K/mcL (4.5-11.0)
[2022-02-22] MEDS: 0.9 % SODIUM CHLORIDE 1,000 ML IV SCH (10:44)
[2022-02-22] MEDS: HEPARIN 5,000 UNIT/ML VIAL SQ SCH (11:06)
--- NOTE | 2022-02-22 13:27 | Internal Med Progress Note ---
SUBJECTIVE Subjective Patient information: Note initiated : 02/22/22 at 1:19 pm Service Date, if different from initiated Date: [] Patient: Isaac Russo 66 y/o M admitted on 02/20/22 for Failure to thrive. Chief Complaint: [] Interval history: Mr. Russo is a 66 year old male with multiple comorbidities including a history of alcohol use disorder, chronic kidney disease, COPD who presented to the emergency department because he was unable to take care of himself at home. The patient is not a good historian and unable to provide more detailed information except that he is he has generally weak and having difficulty ambulating. When specifically asked the patient says that he does have abdominal pain which is been present for some time and also has had some bloody bowel movements. The patient also has what appears to be chronic musculoskeletal pain, specifically in his left hip and right shoulder. Patient also says that he has difficulty urinating and has been told he may need a Pereira catheter at some time. In the emergency department, the patient was tachycardic and intermittently hypotensive. There was no respiratory distress, he was saturating well on room air. EKG showed sinus rhythm. Laboratory workup shows a new leukocytosis of 18,000, increased neutrophils, sodium of 131, creatinine of 2.9 with a BUN of 35. LFTs were normal. Procalcitonin was elevated at 1.12. Noncontrast CT abdomen and pelvis revealed moderate concentric wall thickening of the distal transverse and descending colon with pericolonic edema. This pattern is most consistent with ischemic colitis per radiology report, infectious colitis and in flammatory bowel disease are felt to be a less likely cause of colitis in this case. Hospital medicine was consulted for admission. Upon examination, the patient is disheveled and appears to be malnourished. He does elicit abdominal tenderness however no rebound tenderness or guarding. There is evidence of peripheral arterial disease in bilateral lower extremities, left greater than right. The patient has a broad based when attempting to ambulate. His main concern is that he is unable to take care of himself at home due to generalized weakness. The patient did not mention abdominal pain until I asked him specifically about his abdomen. The patient will be admitted for colitis likely secondary to ischemic colitis, IV fluids, empiric antibiotics, supportive care, PT and OT. The patient will likely require to a jail facility for rehab when he is discharged. The patient was last hospitalized at [facility] in November, for hyponatremia, generalized weakness and falls felt to be related to alcohol. The patient was treated for alcohol withdrawal and eventually discharged to a jail facility for rehab. 02/21 Vital signs stable overnight, the patient was started on the CIWA protocol last night for alcohol withdrawal but symptoms are mild. The patient feels better today, abdominal discomfort improving. Renal function improving. Continue IV antibiotics, decreased IV NS to 75 mls/hr. 02/22 Hypertensive overnight, started Coreg 6.25 mg twice daily as the patient has allergies to multiple classes of antihypertensives. CIWA scores elevated today, receiving Ativan as needed. Staff reported diarrhea and a bloody bowel movement overnight. The patient's abdominal discomfort is about the same as yesterday. Hemoglobin improved from 10.9 to 11.6. Renal function improving. Screening for C. difficile. Low magnesium, replaced. Continue antibiotics, IV fluid. Physical exam Head: Atraumatic, normal inspection. Eyes: normal appearance, no scleral icterus. Neck: full ROM Respiratory: no respiratory distress. Cardiovascular: Normal rate and rhythm, S1, S2. GI/Abdominal: Mildly distended, soft, mild tenderness to palpation, no guarding or rebound tenderness Extremities: diffuse muscle atrophy, decreased distal pulses in lower extr emities Neurological: CN II-XII intact, intact motor, intact sensation Psychiatric: Normal mood. Skin: Bilateral lower extremity skin wounds do not appear infected. Constitutional Vitals: Vital Signs Temp Pulse Resp BP Pulse Ox O2 Del Method 97.7 F 82 21 172/93 100 02/22/22 12:02 02/22/22 12:02 02/22/22 12:02 02/22/22 12:02/22/22 12:02 02/21/22 08:00 Period Temp Pulse Resp BP Sys/Gan Pulse Ox O2 Del Method O2 Flow Rate Last 24 Hr 97.4 F-98.3 F 79-109 11-26 139-199/81-119 97-100 Intake and Output 02/21/22 02/22/22 02/22/22 21:59 05:59 13:59 Intake Total 1053 799 203 Output Total 250 253 1 Balance 803 546 202 Weight 63.078 kg Intake & Output: Intake & Output 02/21/22 02/22/2222 21:59 05:59 13:59 Intake Total 1053 799 203 Output Total 250 253 1 Balance 803 546 202 Weight 63.078 kg Intake: IV 393 799 203 Sodium Chloride 0.9% 1,000 ml @ 240 646 75 mls/hr IV .[id number] [facility] Rx#: [id number] Vitamin B1 300 mg In Sodium 53 53 53 Chloride 0.9% 50 ml @ 50 mls/hr IV Q8H [facility] Rx#:[id number] Rocephin 2 gm In Dextrose 5% in 50 Water 50 ml @ 100 mls/hr IV Q24H [facility] Rx#:[id number] Oral 660 Output: Void Amount 250 250 # of times incontinent of urine 3 1 Other: Urine Appearance Clear Urine Color Yellow Stool Size Large Large Stool Color Brown Brown Brown Bright Red Blood Green Stool Consistency Loose Loose Liquid # Bowel Movements 1 1 2 # of times incontinent of 1 Bowels OBJ DATA Labs CBC & Chem 7: 02/22/22 05:50 02/22/22 05:50 Labs: Abnormal Lab Results 02/22/22 02/22/22 02/21/22 05:50 05:50 05:54 WBC 13.9 H RBC 3.68 L Hgb 11.6 L Hct 35.1 L Immature Gran % (Auto) 1.2 H Neut % (Auto) 79.8 H Lymph % (Auto) 5.2 L Lymph # (Auto) 0.73 L [place] # (Auto) 1.63 H Immature Gran # 0.17 H Absolute Neutrophils 11.12 H POC VBG pCO2 at Temp POC VBG HCO3 POC VBG Total CO2 POC VBG Base Excess POC Sodium Carbon Dioxide 20 L 17 L POC Total CO2 POC BUN BUN 24 H 35 H Creatinine 1.9 H 2.6 H POC Creatinine Glucose 64 L POC Glucose Uric Acid 8.6 H Calcium 8.4 L Magnesium 1.3 L GGT 82 H 75 H Lactate Dehydrogenase 301 H Total Protein 5.8 L 5.5 L Albumin 2.7 L 2.3 L Globulin Albumin/Globulin Ratio 0.9 L 0.7 L Procalcitonin Urine Protein Urine Ketones Hyaline Casts Urine Mucus 02/21/22 02/20/22 02/20/22 05:54 21:19 15:51 WBC 12.9 H RBC 3.53 L Hgb 10.9 L Hct 34.4 L Immature Gran % (Auto) 2.6 H Neut % (Auto) 79.3 H Lymph % (Auto) 6.3 L Lymph # (Auto) 0.81 L [place] # (Auto) 1.15 H Immature Gran # 0.34 H Absolute Neutrophils 10.26 H POC VBG pCO2 at Temp 38.8 L POC VBG HCO3 22.0 L POC VBG Total CO2 23.0 L POC VBG Base Excess -3.0 L POC Sodium Carbon Dioxide POC Total CO2 POC BUN BUN Creatinine POC Creatinine Glucose POC Glucose Uric Acid Calcium Magnesium GGT Lactate Dehydrogenase Total Protein Albumin Globulin Albumin/Globulin Ratio Procalcitonin Urine Protein 30 mg/dl A Urine Ketones Trace A Hyaline Casts 4 H Urine Mucus Few A 02/20/22 02/20/22 02/20/22 15:47 13:18 13:18 WBC 18.0 H RBC 4.41 L Hgb Hct Immature Gran % (Auto) 0.9 H Neut % (Auto) 81.8 H Lymph % (Auto) 4.9 L Lymph # (Auto) 0.88 L [place] # (Auto) 2.16 H Immature Gran # 0.16 H Absolute Neutrophils 14.77 H POC VBG pCO2 at Temp POC VBG HCO3 POC VBG Total CO2 POC VBG Base Excess POC Sodium Carbon Dioxide POC Total CO2 POC BUN BUN Creatinine POC Creatinine Glucose POC Glucose Uric Acid Calcium Magnesium GGT Lactate Dehydrogenase Total Protein Albumin Globulin 3.8 H Albumin/Globulin Ratio Procalcitonin 1.12 H Urine Protein Urine Ketones Hyaline Casts Urine Mucus 02/20/22 13:17 WBC RBC Hgb Hct Immature Gran % (Auto) Neut % (Auto) Lymph % (Auto) Lymph # (Auto) [place] # (Auto) Immature Gran # Absolute Neutrophils POC VBG pCO2 at Temp POC VBG HCO3 POC VBG Total CO2 POC VBG Base Excess POC Sodium 131 L Carbon Dioxide POC Total CO2 21.0 L POC BUN 35 H BUN Creatinine POC Creatinine 2.9 H Glucose POC Glucose 121 H Uric Acid Calcium Magnesium GGT Lactate Dehydrogenase Total Protein Albumin Globulin Albumin/Globulin Ratio Procalcitonin Urine Protein Urine Ketones Hyaline Casts Urine Mucus Meds: Medications Acetaminophen (Acetaminophen 500 Mg Tablet) 500 mg PO Q6HP PRN; Protocol PRN Reason: Per Pain Protocol Hydrocodone Bitart/Acetaminophen (Hydrocodone/Apap 5/325mg Tablet) 1 tab PO Q4HP PRN; Protocol PRN Reason: Per Pain Protocol Last Admin: 02/21/22 14:51 Dose: 1 tab Carvedilol (Carvedilol 6.25 Mg Tablet) [facility] Docusate Sodium (Docusate Sodium 100 Mg Capsule) 100 mg PO BID [facility] Last Admin: 02/22/22 08:39 Dose: Not Given Hydromorphone HCl (Hydromorphone 0.5 Mg/0.5 Ml Syringe) 0.5 mg IV Q2HP PRN; Protocol PRN Reason: Per Pain Protocol Metronidazole (Flagyl) 500 mg in 100 mls @ 100 mls/hr IV Q8H [facility]; Protocol Last Infusion: 02/22/22 08:34 Dose: Infused Thiamine HCl 300 mg/ Sodium (Chloride) 53 mls @ 50 mls/hr IV Q8H [facility] Stop: 02/23/22 21:59 Last Infusion: 02/22/22 08:34 Dose: Infused Ceftriaxone Sodium 2 gm/ (Dextrose) 50 mls @ 100 mls/hr IV Q24H [facility] Last Infusion: 02/22/22 09:54 Dose: Infused Sodium Chloride (Sodium Chloride 0.9%) 1,000 mls @ 50 mls/hr IV .Q20H [facility] Last Admin: 02/22/22 10:44 Dose: 50 mls/hr Labetalol HCl (Labetalol 5 Mg/Ml Ml) 10 mg IV Q2HP PRN PRN Reason: Hypertension Lactulose (Lactulose 20 Gm/30 Ml Oral.Nancy) 10 gm PO DAILYP PRN PRN Reason: Constipation Lorazepam (Lorazepam 2 Mg/Ml Vial) 0 mg IV Q4HP PRN; Protocol PRN Reason: Alcohol Withdrawal/Assess CIWA Last Admin: 02/22/22 09:39 Dose: 2 mg Ondansetron HCl (Ondansetron 4 Mg/2 Ml Vial) 4 mg IV Q4HP PRN; Protocol PRN Reason: Nausea And Vomiting Senna (Sennosides 1 Tablet) 2 tab PO HSP PRN PRN Reason: Constipation Sodium Chloride (0.9 % Sodium Chloride 10 Ml Syringe) 10 ml IV Q8 [facility] Last Admin: 02/22/22 05:44 Dose: 10 ml A/P Narrative A/P Narrative: Assessment: 66 year old male with a past medical history of alcohol use disorder, chronic kidney disease, COPD, peripheral vascular disease, osteoarthritis now admitted for colitis involving the distal transverse and descending colon felt to be ischemic colitis as well as generalized weakness and failure to thrive. #Distal transverse and descending colitis, likely ischemic versus less likely infectious colitis #SIRS, possible sepsis #Acute on chronic kidney disease injury, improving #Intermittent hematochezia #Alcohol withdrawal #Generalized weakness/gait abnormality #Failure to thrive/moderate to severe malnourishment #COPD, stable #Urinary retention #Alcohol use disorder #Hypertension #Peripheral vascular disease Plan -IV fluid. -Ceftriaxone and metronidazole for now. -C. difficile screen. -Follow CBC, renal function, electrolytes. -Monitor urine output,. -Analgesics as needed, avoid IV opioids. -Consider GI/general surgery consult for colonoscopy if hematochezia recurs. -CIWA protocol with Ativan as needed. -High-dose thiamine IV for now. -Bladder scan Qshift, straight cath prn for urinary retention. -PT and OT consult -nurse monitoring. -Full liquid diet. -DVT prophylaxis: SCDs, holding heparin for recent bloody bowel movement. -Disposition: Probably low intensity rehab when the patient is stable. Outpatient colonoscopy if not performed during this hospitalization. Time Spent With Patient Time: Total time spent is greater than 50% in coordination of care (as documented) at patient's floor/unit and/or counseling patient: QUALITY VTE Deep Vein Thrombosis/Pulmonary Embolism Present on Admission: No
[2022-02-22] MEDS: CARVEDILOL 6.25 MG TABLET PO SCH (17:35)
[2022-02-22] MEDS: HYDROcodone/APAP 5/325MG TABLET PO PRN (17:35)
[2022-02-22] MEDS: FOLIC ACID/VITAMIN B COMP W-C 1 TAB TABLET PO SCH (21:27)
[2022-02-23] MEDS: ACETAMINOPHEN 500 MG TABLET PO PRN (00:46)
[2022-02-23] MEDS: LORazepam 2 MG/ML VIAL IV PRN ×6 (00:47→23:52)
[2022-02-23] MEDS: THIAMINE 300 MG in 0.9 % SODIUM CHLORIDE 50 ML IV SCH ×2 (05:00→14:33)
[2022-02-23] MEDS: 0.9 % SODIUM CHLORIDE 10 ML SYRINGE IV SCH ×3 (05:59→21:24)
[2022-02-23] MEDS: metroNIDAZOLE 500 MG/100 ML BAG IV SCH ×3 (06:13→21:22)
[2022-02-23] MEDS: 0.9 % SODIUM CHLORIDE 1,000 ML IV SCH (06:14)
[2022-02-23 06:53] LABS: Basophils % (Auto) 0.9 % (0.0-2.0); Eosinophils # (Auto) 0.42 K/mcL (0.00-0.70); Eosinophils % (Auto) 3.8 % (0.0-7.0); Hematocrit 33.2 % (40.1-51.0); Hemoglobin 10.6 g/dL (13.7-17.5); Lymphocytes # (Auto) 1.07 K/mcL (1.50-4.80); Lymphocytes % (Auto) 9.7 % (15.5-49.0); Mean Cell Volume 96.8 fL (80.0-100.0); Mean Corpuscular HGB Conc 31.9 g/dL (31.0-36.0); Mean Platelet Volume 8.8 fL (7.4-10.4); Monocytes % (Auto) 11.8 % (1.0-12.0); Neutrophils % (Auto) 72.6 % (38.0-78.0); Platelet Count 289 K/mcL (140-440); RBC 3.43 M/mcL (4.63-6.08); Red Cell Distribution Width 13.1 % (11.5-14.5)
[2022-02-23 07:05] LABS: ALT/SGPT 14 U/L (<40); AST/SGOT 15 U/L (<40); Albumin 2.4 gm/dL (3.2-5.2); Albumin/Globulin Ratio 0.9 (1.0-2.3); Alkaline Phosphatase 82 U/L (39-117); Bilirubin,Direct < 0.2 mg/dL (0-0.3); Bilirubin,Total < 0.2 mg/dL (0.1-1.0); Blood Urea Nitrogen 15 mg/dL (8-23); Calcium 8.8 mg/dL (8.6-10.4); Carbon Dioxide 22 mmol/L (22-30); Chloride 103 mmol/L (96-108); Globulin 2.7 gm/dL (2.2-3.7); Glomerular Filtration Rate 47; Glucose 94 mg/dL (70-105); Lactate Dehydrogenase 224 U/L (135-225); Phosphorous 2.3 mg/dL (2.5-4.5); Triglycerides 60 mg/dL (<150); Uric Acid 6.5 mg/dL (2.5-8.0)
[2022-02-23] MEDS ORDERED: DEXTROSE 5%-1/2NS W/20MEQ KCL 1,000 ML IV SCH ×2 (07:45→14:12)
[2022-02-23] MEDS: DOCUSATE SODIUM 100 MG CAPSULE PO SCH ×2 (08:22→21:23)
[2022-02-23] MEDS: CARVEDILOL 6.25 MG TABLET PO SCH ×2 (08:30→17:47)
[2022-02-23] MEDS: cefTRIAXone 2 GM in DEXTROSE 5% IN WATER 50 ML IV SCH (08:30)
[2022-02-23] MEDS: HEPARIN 5,000 UNIT/ML VIAL SQ SCH ×2 (08:30→21:23)
--- NOTE | 2022-02-23 11:00 | Internal Med Progress Note ---
SUBJECTIVE Subjective Patient information: Note initiated : 02/23/22 at 10:58 am Service Date, if different from initiated Date: [] Patient: Isaac Russo 66 y/o M admitted on 02/20/22 for Failure to thrive. Chief Complaint: [] Interval history: Mr. Russo is a 66 year old male with multiple comorbidities including a history of alcohol use disorder, chronic kidney disease, COPD who presented to the emergency department because he was unable to take care of himself at home. The patient is not a good historian and unable to provide more detailed information except that he is he has generally weak and having difficulty ambulating. When specifically asked the patient says that he does have abdominal pain which is been present for some time and also has had some bloody bowel movements. The patient also has what appears to be chronic musculoskeletal pain, specifically in his left hip and right shoulder. Patient also says that he has difficulty urinating and has been told he may need a Pereira catheter at some time. In the emergency department, the patient was tachycardic and intermittently hypotensive. There was no respiratory distress, he was saturating well on room air. EKG showed sinus rhythm. Laboratory workup shows a new leukocytosis of 18,000, increased neutrophils, sodium of 131, creatinine of 2.9 with a BUN of 35. LFTs were normal. Procalcitonin was elevated at 1.12. Noncontrast CT abdomen and pelvis revealed moderate concentric wall thickening of the distal transverse and descending colon with pericolonic edema. This pattern is most consistent with ischemic colitis per radiology report, infectious colitis and i nflammatory bowel disease are felt to be a less likely cause of colitis in this case. Hospital medicine was consulted for admission. Upon examination, the patient is disheveled and appears to be malnourished. He does elicit abdominal tenderness however no rebound tenderness or guarding. There is evidence of peripheral arterial disease in bilateral lower extremities, left greater than right. The patient has a broad based when attempting to ambulate. His main concern is that he is unable to take care of himself at home due to generalized weakness. The patient did not mention abdominal pain until I asked him specifically about his abdomen. The patient will be admitted for colitis likely secondary to ischemic colitis, IV fluids, empiric antibiotics, supportive care, PT and OT. The patient will likely require to a senior care facility for rehab when he is discharged. The patient was last hospitalized at [facility] in November, for hyponatremia, generalized weakness and falls felt to be related to alcohol. The patient was treated for alcohol withdrawal and eventually discharged to a senior care facility for rehab. 02/21 Vital signs stable overnight, the patient was started on the CIWA protocol last night for alcohol withdrawal but symptoms are mild. The patient feels better today, abdominal discomfort improving. Renal function improving. Continue IV antibiotics, decreased IV NS to 75 mls/hr. 02/22 Hypertensive overnight, started Coreg 6.25 mg twice daily as the patient has allergies to multiple classes of antihypertensives. CIWA scores elevated today, receiving Ativan as needed. Staff reported diarrhea and a bloody bowel movement overnight. The patient's abdominal discomfort is about the same as yesterday. Hemoglobin improved from 10.9 to 11.6. Renal function improving. Screening for C. difficile. Low magnesium, replaced. Continue antibiotics, IV fluid. 02/23 Hypertensive overnight, otherwise vitals are stable. Leukocytosis resolved. The patient does have alcohol withdrawal and receiving Ativan as needed. Renal function improving, continuing IV fluid. Patient continues to have loose stools, C. difficile screen was negative. Abdominal discomfort improving, started Imodium as needed. Continuing ceftriaxone and IV metronidazole as the patient is unlikely to tolerate oral antibiotics, plan for 5 days of antibiotic treatment. Patient will likely require a senior care facility for rehab. Physical exam Head: Atraumatic, normal inspection. Eyes: normal appearance, no scleral icterus. Neck: full ROM Respiratory: no respiratory distress. Cardiovascular: Normal rate and rhythm, S1, S2. GI/Abdominal: Mildly distended, soft, nontender.s Extremities: Diffuse muscle atrophy secondary to malnourishment. Neurological: CN II-XII intact, intact motor, intact sensation Psychiatric: Normal mood. Skin: Bilateral lower extremity skin wounds do not appear infected. Constitutional Vitals: Vital Signs Temp Pulse Resp BP Pulse Ox O2 Del Method 97 F 76 16 165/94 98 02/23/22 04:00 02/23/22 06:00 02/23/22 10:00 02/23/22 10:00 02/23/22 10:02/23/22 02:56 Period Temp Pulse Resp BP Sys/Gan Pulse Ox O2 Del Method O2 Flow Rate Last 24 Hr 97 F-97.7 F 68-115 12-32 124-185/76-101 95-100 Room Air-Room Air Intake and Output 02/22/22 02/23/22 02/23/22 21:59 05:59 13:59 Intake Total 783 723 393 Output Total 752 650 775 Balance 31 73 -382 Weight 60.129 kg Intake & Output: Intake & Output 02/22/22 02/23/22 02/23/22 21:59 05:59 13:59 Intake Total 783 723 393 Output Total 752 650 775 Balance 31 73 -382 Weight 60.129 kg Intake: Nourishment/Supplement quantity 240 (ml) IV 203 153 153 Vitamin B1 300 mg In Sodium 53 53 53 Chloride 0.9% 50 ml @ 50 mls/hr IV Q8H [facility] Rx#:[id number] Oral 580 570 Output: Void Amount 500 300 # of times incontinent of urine 2 Urine/Stool Mix 250 600 Stool 50 475 Other: Meal Dinner Breakfast Percent of Meal Consumed 25% 25% Nourishment/Supplement name Ensure Plus Urine Appearance Clear Clear Urine Color Yellow Pale Pale Urine Odor Normal Normal Stool Size Moderate Stool Color Brown Green Brown Green Naun Colored Stool Consistency Watery Liquid Liquid # Voids 1 # Bowel Movements 1 2 # of times incontinent of 0 0 Bowels OBJ DATA Labs CBC & Chem 7: 02/23/22 06:00 02/23/22 06:00 Labs: Abnormal Lab Results 02/23/22 02/23/22 02/22/22 06:00 06:00 05:50 WBC RBC 3.43 L Hgb 10.6 L Hct 33.2 L Immature Gran % (Auto) 1.2 H Neut % (Auto) Lymph % (Auto) 9.7 L Lymph # (Auto) 1.07 L [place] # (Auto) 1.30 H Immature Gran # 0.13 H Absolute Neutrophils 8.02 H POC VBG pCO2 at Temp POC VBG HCO3 POC VBG Total CO2 POC VBG Base Excess POC Sodium Carbon Dioxide 20 L POC Total CO2 POC BUN BUN 24 H Creatinine 1.5 H 1.9 H POC Creatinine Glucose POC Glucose Uric Acid Calcium Phosphorus 2.3 L Magnesium 1.3 L GGT 73 H 82 H Lactate Dehydrogenase 301 H Total Protein 5.1 L 5.8 L Albumin 2.4 L 2.7 L Globulin Albumin/Globulin Ratio 0.9 L 0.9 L Procalcitonin Urine Protein Urine Ketones Hyaline Casts Urine Mucus 02/22/22 02/21/22 02/21/22 05:50 05:54 05:54 WBC 13.9 H 12.9 H RBC 3.68 L 3.53 L Hgb 11.6 L 10.9 L Hct 35.1 L 34.4 L Immature Gran % (Auto) 1.2 H 2.6 H Neut % (Auto) 79.8 H 79.3 H Lymph % (Auto) 5.2 L 6.3 L Lymph # (Auto) 0.73 L 0.81 L [place] # (Auto) 1.63 H 1.15 H Immature Gran # 0.17 H 0.34 H Absolute Neutrophils 11.12 H 10.26 H POC VBG pCO2 at Temp POC VBG HCO3 POC VBG Total CO2 POC VBG Base Excess POC Sodium Carbon Dioxide 17 L POC Total CO2 POC BUN BUN 35 H Creatinine 2.6 H POC Creatinine Glucose 64 L POC Glucose Uric Acid 8.6 H Calcium 8.4 L Phosphorus Magnesium GGT 75 H Lactate Dehydrogenase Total Protein 5.5 L Albumin 2.3 L Globulin Albumin/Globulin Ratio 0.7 L Procalcitonin Urine Protein Urine Ketones Hyaline Casts Urine Mucus 02/20/22 02/20/22 02/20/22 21:19 15:51 15:47 WBC RBC Hgb Hct Immature Gran % (Auto) Neut % (Auto) Lymph % (Auto) Lymph # (Auto) [place] # (Auto) Immature Gran # Absolute Neutrophils POC VBG pCO2 at Temp 38.8 L POC VBG HCO3 22.0 L POC VBG Total CO2 23.0 L POC VBG Base Excess -3.0 L POC Sodium Carbon Dioxide POC Total CO2 POC BUN BUN Creatinine POC Creatinine Glucose POC Glucose Uric Acid Calcium Phosphorus Magnesium GGT Lactate Dehydrogenase Total Protein Albumin Globulin Albumin/Globulin Ratio Procalcitonin 1.12 H Urine Protein 30 mg/dl A Urine Ketones Trace A Hyaline Casts 4 H Urine Mucus Few A 02/20/22 02/20/22 02/20/22 13:18 13:18 13:17 WBC 18.0 H RBC 4.41 L Hgb Hct Immature Gran % (Auto) 0.9 H Neut % (Auto) 81.8 H Lymph % (Auto) 4.9 L Lymph # (Auto) 0.88 L [place] # (Auto) 2.16 H Immature Gran # 0.16 H Absolute Neutrophils 14.77 H POC VBG pCO2 at Temp POC VBG HCO3 POC VBG Total CO2 POC VBG Base Excess POC Sodium 131 L Carbon Dioxide POC Total CO2 21.0 L POC BUN 35 H BUN Creatinine POC Creatinine 2.9 H Glucose POC Glucose 121 H Uric Acid Calcium Phosphorus Magnesium GGT Lactate Dehydrogenase Total Protein Albumin Globulin 3.8 H Albumin/Globulin Ratio Procalcitonin Urine Protein Urine Ketones Hyaline Casts Urine Mucus Meds: Medications Acetaminophen (Acetaminophen 500 Mg Tablet) 500 mg PO Q6HP PRN; Protocol PRN Reason: Per Pain Protocol Last Admin: 02/23/22 00:46 Dose: 500 mg Hydrocodone Bitart/Acetaminophen (Hydrocodone/Apap 5/325mg Tablet) 1 tab PO Q4HP PRN; Protocol PRN Reason: Per Pain Protocol Last Admin: 02/22/22 17:35 Dose: 1 tab Carvedilol (Carvedilol 6.25 Mg Tablet) [facility] Last Admin: 02/23/22 08:30 Dose: 6.25 mg Docusate Sodium (Docusate Sodium 100 Mg Capsule) 100 mg PO BID [facility] Last Admin: 02/23/22 08:22 Dose: Not Given Heparin Sodium (Porcine) (Heparin 5,000 Unit/Ml Vial) 5,000 unit SQ Q12 [facility] Last Admin: 02/23/22 08:30 Dose: 5,000 unit Metronidazole (Flagyl) 500 mg in 100 mls @ 100 mls/hr IV Q8H [facility]; Protocol Stop: 02/26/22 05:59 Last Infusion: 02/23/22 08:43 Dose: Infused Thiamine HCl 300 mg/ Sodium (Chloride) 53 mls @ 50 mls/hr IV Q8H [facility] Stop: 02/23/22 21:59 Last Infusion: 02/23/22 08:43 Dose: Infused Ceftriaxone Sodium 2 gm/ (Dextrose) 50 mls @ 100 mls/hr IV Q24H [facility] Stop: 02/26/22 08:59 Last Admin: 02/23/22 08:30 Dose: 100 mls/hr Thiamine HCl 100 mg/ Sodium (Chloride) 51 mls @ 50 mls/hr IV DAILY [facility] Stop: 02/26/22 10:02 Potassium Chloride/Dextrose/Sod Cl (Dextrose 5%-1/2ns W/20meq Kcl) 1,000 mls @ 75 mls/hr IV .[id number] [facility] Last Admin: 02/23/22 10:32 Dose: 75 mls/hr Labetalol HCl (Labetalol 5 Mg/Ml Ml) 10 mg IV Q2HP PRN PRN Reason: Hypertension Lactulose (Lactulose 20 Gm/30 Ml Oral.Nancy) 10 gm PO DAILYP PRN PRN Reason: Constipation Loperamide HCl (Loperamide 2 Mg Capsule) 2 mg PO PRN PRN PRN Reason: Diarrhea Lorazepam (Lorazepam 2 Mg/Ml Vial) 0 mg IV Q4HP PRN; Protocol PRN Reason: Alcohol Withdrawal/Assess CIWA Last Admin: 02/23/22 10:32 Dose: 2 mg Multivit/Ca Carb/B Cmplx/FA/Prenat (Folic Acid/Vitamin B Comp W-C 1 Tab Tablet) 1 tab PO HS [facility] Last Admin: 02/22/22 21:27 Dose: 1 tab Ondansetron HCl (Ondansetron 4 Mg/2 Ml Vial) 4 mg IV Q4HP PRN; Protocol PRN Reason: Nausea And Vomiting Senna (Sennosides 1 Tablet) 2 tab PO HSP PRN PRN Reason: Constipation Sodium Chloride (0.9 % Sodium Chloride 10 Ml Syringe) 10 ml IV Q8 [facility] Last Admin: 02/23/22 05:59 Dose: 10 ml A/P Narrative A/P Narrative: Assessment: 66 year old male with a past medical history of alcohol use disorder, chronic kidney disease, COPD, peripheral vascular disease, osteoarthritis now admitted for colitis involving the distal transverse and descending colon felt to be ischemic colitis as well as generalized weakness and failure to thrive. The patient had intermittent hematochezia which resolved followed by diarrhea. C. difficile screen was negative. #Resolving distal transverse and descending colitis, likely ischemic versus infectious colitis #Acute on chronic kidney disease injury, improving #Alcohol withdrawal #Generalized weakness #Failure to thrive/malnourishment #Loose stools likely due to recent colitis and possibly antibiotic #Probably resolved hematochezia likely secondary to colitis #COPD, stable #Alcohol use disorder #Hypertension #Peripheral vascular disease Plan -Continue IV fluid. -Ceftriaxone and IV metronidazole for now. -Follow CBC, renal function, electrolytes. -Monitor urine output. -Imodium as needed for diarrhea. -Analgesics as needed, avoid IV opioids. -Consider GI/general surgery consult for colonoscopy if hematochezia recurs. -CIWA protocol with Ativan as needed. -High-dose thiamine IV for now followed by daily thiamine supplementation. -PT and OT consult -quality assurance monitor final. -Advance to regular diet. -DVT prophylaxis: Heparin SQ -Disposition: Probably low intensity rehab. The patient should have an outpatient colonoscopy if not performed recently. Time Spent With Patient Time: Total time spent is greater than 50% in coordination of care (as documented) at patient's floor/unit and/or counseling patient: QUALITY VTE Deep Vein Thrombosis/Pulmonary Embolism Present on Admission: No
[2022-02-23] MEDS: LOPERAMIDE 2 MG CAPSULE PO PRN (11:19)
[2022-02-23] MEDS: HYDROcodone/APAP 5/325MG TABLET PO PRN ×2 (12:59→20:10)
--- NOTE | 2022-02-23 14:12 | Internal Med Progress Note ---
SUBJECTIVE Subjective Patient information: Note initiated : 02/23/22 at 2:05 pm Service Date, if different from initiated Date: [] Patient: Isaac Russo 66 y/o M admitted on 02/20/22 for Failure to thrive. Chief Complaint: [] Interval history: Mr. Russo is a 66 year old male with multiple comorbidities including a history of alcohol use disorder, chronic kidney disease, COPD who presented to the emergency department because he was unable to take care of himself at home. The patient is not a good historian and unable to provide more detailed information except that he is he has generally weak and having difficulty ambulating. When specifically asked the patient says that he does have abdominal pain which is been present for some time and also has had some bloody bowel movements. The patient also has what appears to be chronic musculoskeletal pain, specifically in his left hip and right shoulder. Patient also says that he has difficulty urinating and has been told he may need a Pereira catheter at some time. In the emergency department, the patient was tachycardic and intermittently hypotensive. There was no respiratory distress, he was saturating well on room air. EKG showed sinus rhythm. Laboratory workup shows a new leukocytosis of 18,000, increased neutrophils, sodium of 131, creatinine of 2.9 with a BUN of 35. LFTs were normal. Procalcitonin was elevated at 1.12. Noncontrast CT abdomen and pelvis revealed moderate concentric wall thickening of the distal transverse and descending colon with pericolonic edema. This pattern is most consistent with ischemic colitis per radiology report, infectious colitis and in flammatory bowel disease are felt to be a less likely cause of colitis in this case. Hospital medicine was consulted for admission. Upon examination, the patient is disheveled and appears to be malnourished. He does elicit abdominal tenderness however no rebound tenderness or guarding. There is evidence of peripheral arterial disease in bilateral lower extremities, left greater than right. The patient has a broad based when attempting to ambulate. His main concern is that he is unable to take care of himself at home due to generalized weakness. The patient did not mention abdominal pain until I asked him specifically about his abdomen. The patient will be admitted for colitis likely secondary to ischemic colitis, IV fluids, empiric antibiotics, supportive care, PT and OT. The patient will likely require to a care home facility for rehab when he is discharged. The patient was last hospitalized at [facility] in November, for hyponatremia, generalized weakness and falls felt to be related to alcohol. The patient was treated for alcohol withdrawal and eventually discharged to a care home facility for rehab. 02/21 Vital signs stable overnight, the patient was started on the CIWA protocol last night for alcohol withdrawal but symptoms are mild. The patient feels better today, abdominal discomfort improving. Renal function improving. Continue IV antibiotics, decreased IV NS to 75 mls/hr. 02/22 Hypertensive overnight, started Coreg 6.25 mg twice daily as the patient has allergies to multiple classes of antihypertensives. CIWA scores elevated today, receiving Ativan as needed. Staff reported diarrhea and a bloody bowel movement overnight. The patient's abdominal discomfort is about the same as yesterday. Hemoglobin improved from 10.9 to 11.6. Renal function improving. Screening for C. difficile. Low magnesium, replaced. Continue antibiotics, IV fluid. 02/23 Hypertensive overnight, otherwise vitals are stable. Leukocytosis resolved. The patient does have alcohol withdrawal and receiving Ativan as needed. Renal function improving, continuing IV fluid. Patient continues to have loose stools, C. difficile screen was negative. Abdominal discomfort improving, started Imodium as needed. Continuing ceftriaxone and IV metronidazole as the patient is unlikely to tolerate oral antibiotics, plan for 5 days of antibiotic treatment. Patient will likely require a care home facility for rehab. 02/24 Constitutional Vitals: Vital Signs Temp Pulse Resp BP Pulse Ox O2 Del Method 97.6 F 79 17 176/109 98 02/23/22 12:08 02/23/22 12:08 02/23/22 12:08 02/23/22 12:08 02/23/22 12:08 02/23/22 02:56 Period Temp Pulse Resp BP Sys/Gan Pulse Ox O2 Del Method O2 Flow Rate Last 24 Hr 97 F-97.7 F 68-115 12-25 124-185/76-109 95-100 Room Air-Room Air Intake and Output 02/23/22 02/23/22 02/23/22 05:59 13:59 21:59 Intake Total 723 1443 Output Total 650 1475 Balance 73 -32 Intake & Output: Intake & Output 02/23/22 02/23/22 02/23/22 05:59 13:59 21:59 Intake Total 723 1443 Output Total 650 1475 Balance 73 -32 Intake: Nourishment/Supplement quantity 240 (ml) IV 153 1203 Sodium Chloride 0.9% 1,000 ml @ 1000 50 mls/hr IV .Q20H [facility] Rx#: [id number] Vitamin B1 300 mg In Sodium 53 53 Chloride 0.9% 50 ml @ 50 mls/hr IV Q8H [facility] Rx#:[id number] Rocephin 2 gm In Dextrose 5% in 50 Water 50 ml @ 100 mls/hr IV Q24H [facility] Rx#:[id number] Oral 570 Output: Void Amount 300 Urine/Stool Mix 600 375 Stool 50 800 Other: Meal Breakfast Percent of Meal Consumed 25% Nourishment/Supplement name Ensure Plus Urine Appearance Clear Urine Color Pale Urine Odor Normal Stool Color Green Brown Naun Colored Stool Consistency Liquid Liquid # Bowel Movements 2 # of times incontinent of 0 Bowels Exam: General: Alert, Awake, No acute Distress Eyes/N/T: EOMI, Head/Neck: neck supple, CV: RRR, No murmurs, Pulm: Clear b/l, no wheezing/rhonchi/rales Abd: soft, nontender, +BS x4, Mildly distended Ext: no clubbing/cyanosis/edema , Diffuse muscle atrophy secondary to malnourishment. Neuro: Alert, no focal deficits, moves all extremities, Skin: warm/dry, Bilateral lower extremity skin wounds do not appear infected. OBJ DATA Labs CBC & Chem 7: 02/23/22 06:00 02/23/22 06:00 Labs: Abnormal Lab Results 02/23/22 02/23/22 02/22/22 06:00 06:00 05:50 WBC RBC 3.43 L Hgb 10.6 L Hct 33.2 L Immature Gran % (Auto) 1.2 H Neut % (Auto) Lymph % (Auto) 9.7 L Lymph # (Auto) 1.07 L [place] # (Auto) 1.30 H Immature Gran # 0.13 H Absolute Neutrophils 8.02 H POC VBG pCO2 at Temp POC VBG HCO3 POC VBG Total CO2 POC VBG Base Excess Carbon Dioxide 20 L BUN 24 H Creatinine 1.5 H 1.9 H Glucose Uric Acid Calcium Phosphorus 2.3 L Magnesium 1.3 L GGT 73 H 82 H Lactate Dehydrogenase 301 H Total Protein 5.1 L 5.8 L Albumin 2.4 L 2.7 L Globulin Albumin/Globulin Ratio 0.9 L 0.9 L Procalcitonin Urine Protein Urine Ketones Hyaline Casts Urine Mucus 02/22/22 02/21/22 02/21/22 05:50 05:54 05:54 WBC 13.9 H 12.9 H RBC 3.68 L 3.53 L Hgb 11.6 L 10.9 L Hct 35.1 L 34.4 L Immature Gran % (Auto) 1.2 H 2.6 H Neut % (Auto) 79.8 H 79.3 H Lymph % (Auto) 5.2 L 6.3 L Lymph # (Auto) 0.73 L 0.81 L [place] # (Auto) 1.63 H 1.15 H Immature Gran # 0.17 H 0.34 H Absolute Neutrophils 11.12 H 10.26 H POC VBG pCO2 at Temp POC VBG HCO3 POC VBG Total CO2 POC VBG Base Excess Carbon Dioxide 17 L BUN 35 H Creatinine 2.6 H Glucose 64 L Uric Acid 8.6 H Calcium 8.4 L Phosphorus Magnesium GGT 75 H Lactate Dehydrogenase Total Protein 5.5 L Albumin 2.3 L Globulin Albumin/Globulin Ratio 0.7 L Procalcitonin Urine Protein Urine Ketones Hyaline Casts Urine Mucus 02/20/22 02/20/22 02/20/22 21:19 15:51 15:47 WBC RBC Hgb Hct Immature Gran % (Auto) Neut % (Auto) Lymph % (Auto) Lymph # (Auto) [place] # (Auto) Immature Gran # Absolute Neutrophils POC VBG pCO2 at Temp 38.8 L POC VBG HCO3 22.0 L POC VBG Total CO2 23.0 L POC VBG Base Excess -3.0 L Carbon Dioxide BUN Creatinine Glucose Uric Acid Calcium Phosphorus Magnesium GGT Lactate Dehydrogenase Total Protein Albumin Globulin Albumin/Globulin Ratio Procalcitonin 1.12 H Urine Protein 30 mg/dl A Urine Ketones Trace A Hyaline Casts 4 H Urine Mucus Few A 02/20/22 13:18 WBC RBC Hgb Hct Immature Gran % (Auto) Neut % (Auto) Lymph % (Auto) Lymph # (Auto) [place] # (Auto) Immature Gran # Absolute Neutrophils POC VBG pCO2 at Temp POC VBG HCO3 POC VBG Total CO2 POC VBG Base Excess Carbon Dioxide BUN Creatinine Glucose Uric Acid Calcium Phosphorus Magnesium GGT Lactate Dehydrogenase Total Protein Albumin Globulin 3.8 H Albumin/Globulin Ratio Procalcitonin Urine Protein Urine Ketones Hyaline Casts Urine Mucus Meds: Medications Acetaminophen (Acetaminophen 500 Mg Tablet) 500 mg PO Q6HP PRN; Protocol PRN Reason: Per Pain Protocol Last Admin: 02/23/22 00:46 Dose: 500 mg Hydrocodone Bitart/Acetaminophen (Hydrocodone/Apap 5/325mg Tablet) 1 tab PO Q4HP PRN; Protocol PRN Reason: Per Pain Protocol Last Admin: 02/23/22 12:59 Dose: 1 tab Carvedilol (Carvedilol 6.25 Mg Tablet) [facility] Last Admin: 02/23/22 08:30 Dose: 6.25 mg Docusate Sodium (Docusate Sodium 100 Mg Capsule) 100 mg PO BID [facility] Last Admin: 02/23/22 08:22 Dose: Not Given Heparin Sodium (Porcine) (Heparin 5,000 Unit/Ml Vial) 5,000 unit SQ Q12 [facility] Last Admin: 02/23/22 08:30 Dose: 5,000 unit Metronidazole (Flagyl) 500 mg in 100 mls @ 100 mls/hr IV Q8H [facility]; Protocol Stop: 02/26/22 05:59 Last Infusion: 02/23/22 08:43 Dose: Infused Thiamine HCl 300 mg/ Sodium (Chloride) 53 mls @ 50 mls/hr IV Q8H [facility] Stop: 02/23/22 21:59 Last Infusion: 02/23/22 08:43 Dose: Infused Ceftriaxone Sodium 2 gm/ (Dextrose) 50 mls @ 100 mls/hr IV Q24H [facility] Stop: 02/26/22 08:59 Last Infusion: 02/23/22 11:17 Dose: Infused Thiamine HCl 100 mg/ Sodium (Chloride) 51 mls @ 50 mls/hr IV DAILY [facility] Stop: 02/26/22 10:02 Potassium Chloride/Dextrose/Sod Cl (Dextrose 5%-1/2ns W/20meq Kcl) 1,000 mls @ 75 mls/hr IV .[id number] [facility] Last Admin: 02/23/22 10:32 Dose: 75 mls/hr Labetalol HCl (Labetalol 5 Mg/Ml Ml) 10 mg IV Q2HP PRN PRN Reason: Hypertension Lactulose (Lactulose 20 Gm/30 Ml Oral.Nancy) 10 gm PO DAILYP PRN PRN Reason: Constipation Loperamide HCl (Loperamide 2 Mg Capsule) 2 mg PO PRN PRN PRN Reason: Diarrhea Last Admin: 02/23/22 11:19 Dose: 2 mg Lorazepam (Lorazepam 2 Mg/Ml Vial) 0 mg IV Q4HP PRN; Protocol PRN Reason: Alcohol Withdrawal/Assess CIWA Last Admin: 02/23/22 10:32 Dose: 2 mg Multivit/Ca Carb/B Cmplx/FA/Prenat (Folic Acid/Vitamin B Comp W-C 1 Tab Tablet) 1 tab PO HS [facility] Last Admin: 02/22/22 21:27 Dose: 1 tab Ondansetron HCl (Ondansetron 4 Mg/2 Ml Vial) 4 mg IV Q4HP PRN; Protocol PRN Reason: Nausea And Vomiting Senna (Sennosides 1 Tablet) 2 tab PO HSP PRN PRN Reason: Constipation Sodium Chloride (0.9 % Sodium Chloride 10 Ml Syringe) 10 ml IV Q8 [facility] Last Admin: 02/23/22 05:59 Dose: 10 ml A/P Narrative A/P Narrative: A: #distal transverse/descending colitis, likely ischemic versus infectious colitis: Resolving #BAMBI on CKD: improving #Alcohol withdrawal (Alcohol use disorder): #Generalized weakness #Failure to thrive/malnourishment: #Loose stools likely due to recent colitis and possibly antibiotic: #Probably resolved hematochezia likely secondary to colitis: #COPD, stable: #Hypertension #Peripheral vascular disease Plan: -Continue IV fluid -Ceftriaxone/metronidazole for now -Follow CBC, renal function, electrolytes. -Monitor urine output -Imodium as needed for diarrhea -Consider GI/general surgery consult for colonoscopy if hematochezia recurs. -CIWA protocol with Ativan as needed -High-dose thiamine IV for now followed by daily thiamine supplementation. -PT and OT consult, oncology navigator. -Dietary consult -Disposition: Probably SNF. The patient should have an outpatient colonoscopy if not performed recently -ppx: Heparin SQ Time Spent With Patient Time: Total time spent is greater than 50% in coordination of care (as documented) at patient's floor/unit and/or counseling patient: QUALITY VTE Deep Vein Thrombosis/Pulmonary Embolism Present on Admission: No
[2022-02-23] MEDS: FOLIC ACID/VITAMIN B COMP W-C 1 TAB TABLET PO SCH (21:23)
[2022-02-24] MEDS: metroNIDAZOLE 500 MG/100 ML BAG IV SCH ×3 (05:21→21:00)
[2022-02-24] MEDS: 0.9 % SODIUM CHLORIDE 10 ML SYRINGE IV SCH ×3 (05:22→21:10)
[2022-02-24] MEDS: HYDROcodone/APAP 5/325MG TABLET PO PRN ×5 (05:37→23:37)
[2022-02-24 07:13] LABS: ALT/SGPT 12 U/L (<40); AST/SGOT 16 U/L (<40); Albumin 2.4 gm/dL (3.2-5.2); Albumin/Globulin Ratio 0.9 (1.0-2.3); Alkaline Phosphatase 79 U/L (39-117); Bilirubin,Direct < 0.2 mg/dL (0-0.3); Bilirubin,Total < 0.2 mg/dL (0.1-1.0); Blood Urea Nitrogen 11 mg/dL (8-23); Calcium 8.8 mg/dL (8.6-10.4); Carbon Dioxide 22 mmol/L (22-30); Chloride 103 mmol/L (96-108); Globulin 2.7 gm/dL (2.2-3.7); Glomerular Filtration Rate 56; Glucose 102 mg/dL (70-105); Lactate Dehydrogenase 142 U/L (135-225); Phosphorous 2.2 mg/dL (2.5-4.5); Triglycerides 72 mg/dL (<150); Uric Acid 5.9 mg/dL (2.5-8.0)
[2022-02-24] MEDS ORDERED: POTASSIUM PHOSPHATE 40 MEQ in DEXTROSE 5% IN WATER 500 ML IV ONE (08:19)
[2022-02-24] MEDS ORDERED: MAGNESIUM SULFATE 2 GM/50 ML BAG IV ONE (08:19)
--- NOTE | 2022-02-24 08:19 | Internal Med Progress Note ---
SUBJECTIVE Subjective Patient information: Note initiated : 02/24/22 at 8:14 am Service Date, if different from initiated Date: [] Patient: Isaac Russo 66 y/o M admitted on 02/20/22 for Failure to thrive. Chief Complaint: [] Interval history: Mr. Russo is a 66 year old male with multiple comorbidities including a history of alcohol use disorder, chronic kidney disease, COPD who presented to the emergency department because he was unable to take care of himself at home. The patient is not a good historian and unable to provide more detailed information except that he is he has generally weak and having difficulty ambulating. When specifically asked the patient says that he does have abdominal pain which is been present for some time and also has had some bloody bowel movements. The patient also has what appears to be chronic musculoskeletal pain, specifically in his left hip and right shoulder. Patient also says that he has difficulty urinating and has been told he may need a Pereira catheter at some time. In the emergency department, the patient was tachycardic and intermittently hypotensive. There was no respiratory distress, he was saturating well on room air. EKG showed sinus rhythm. Laboratory workup shows a new leukocytosis of 18,000, increased neutrophils, sodium of 131, creatinine of 2.9 with a BUN of 35. LFTs were normal. Procalcitonin was elevated at 1.12. Noncontrast CT abdomen and pelvis revealed moderate concentric wall thickening of the distal transverse and descending colon with pericolonic edema. This pattern is most consistent with ischemic colitis per radiology report, infectious colitis and in flammatory bowel disease are felt to be a less likely cause of colitis in this case. Hospital medicine was consulted for admission. Upon examination, the patient is disheveled and appears to be malnourished. He does elicit abdominal tenderness however no rebound tenderness or guarding. There is evidence of peripheral arterial disease in bilateral lower extremities, left greater than right. The patient has a broad based when attempting to ambulate. His main concern is that he is unable to take care of himself at home due to generalized weakness. The patient did not mention abdominal pain until I asked him specifically about his abdomen. The patient will be admitted for colitis likely secondary to ischemic colitis, IV fluids, empiric antibiotics, supportive care, PT and OT. The patient will likely require to a [facility]iary facility for rehab when he is discharged. The patient was last hospitalized at [facility] in November, for hyponatremia, generalized weakness and falls felt to be related to alcohol. The patient was treated for alcohol withdrawal and eventually discharged to a penitentiary facility for rehab. 02/21 Vital signs stable overnight, the patient was started on the CIWA protocol last night for alcohol withdrawal but symptoms are mild. The patient feels better today, abdominal discomfort improving. Renal function improving. Continue IV antibiotics, decreased IV NS to 75 mls/hr. 02/22 Hypertensive overnight, started Coreg 6.25 mg twice daily as the patient has allergies to multiple classes of antihypertensives. CIWA scores elevated today, receiving Ativan as needed. Staff reported diarrhea and a bloody bowel movement overnight. The patient's abdominal discomfort is about the same as yesterday. Hemoglobin improved from 10.9 to 11.6. Renal function improving. Screening for C. difficile. Low magnesium, replaced. Continue antibiotics, IV fluid. 02/23 Hypertensive overnight, otherwise vitals are stable. Leukocytosis resolved. The patient does have alcohol withdrawal and receiving Ativan as needed. Renal function improving, continuing IV fluid. Patient continues to have loose stools, C. difficile screen was negative. Abdominal discomfort improving, started Imodium as needed. Continuing ceftriaxone and IV metronidazole as the patient is unlikely to tolerate oral antibiotics, plan for 5 days of antibiotic treatment. Patient will likely require a penitentiary facility for rehab. 02/24 Patient required 3 mg of IV Ativan last night. Seems to be moving more clear this morning and doing little bit better. Kidney function improving. Magnesium and phosphorus low. Will be replaced. Review of Systems: denies headache/fever/chills/nausea/vomiting/chest or abdominal pain/cough/dyspnea/diarrhea. Otherwise see above. Constitutional Vitals: Vital Signs Temp Pulse Resp BP Pulse Ox O2 Del Method 97.6 F 84 16 154/104 97 02/24/22 05:45 02/24/22 04:00 02/24/22 05:45 02/24/22 04:00 02/24/22 05:45 02/24/22 05:45 Period Temp Pulse Resp BP Sys/Gan Pulse Ox O2 Del Method O2 Flow Rate Last 24 Hr 97.1 F-98.5 F 32-101 12-21 122-176/81-109 87-100 Room Air-Room Air Intake and Output 02/23/22 02/24/22 02/24/22 21:59 05:59 13:59 Intake Total 993 500 Output Total 670 550 Balance 323 -50 Weight 62.414 kg Intake & Output: Intake & Output 02/23/22 02/24/22 02/24/22 21:59 05:59 13:59 Intake Total 993 500 Output Total 670 550 Balance 323 -50 Weight 62.414 kg Intake: IV 353 100 Dextrose 5%-1/2Ns W/20Meq KCl 1 200 ,000 ml @ 75 mls/hr IV .[id number] [facility] Rx#:[id number] Vitamin B1 300 mg In Sodium 53 Chloride 0.9% 50 ml @ 50 mls/hr IV Q8H [facility] Rx#:[id number] Oral 640 400 Output: Void Amount 345 550 Urine/Stool Mix 325 Other: Urine Appearance Clear Clear Urine Color Dark Yellow Yellow Urine Odor Normal Exam: General: Alert, Awake, No acute Distress Eyes/N/T: EOMI, Head/Neck: neck supple, CV: RRR, No murmurs, Pulm: Clear b/l, no wheezing/rhonchi/rales Abd: soft, nontender, +BS x4, Mildly distended Ext: no clubbing/cyanosis/edema , Diffuse muscle atrophy secondary to malnourishment. Neuro: Alert, no focal deficits, moves all extremities, Skin: warm/dry, Bilateral lower extremity skin wounds do not appear infected. OBJ DATA Labs CBC & Chem 7: 02/23/22 06:00 02/24/22 05:38 Labs: Abnormal Lab Results 02/24/22 02/23/22 02/23/22 05:38 06:00 06:00 WBC RBC 3.43 L Hgb 10.6 L Hct 33.2 L Immature Gran % (Auto) 1.2 H Neut % (Auto) Lymph % (Auto) 9.7 L Lymph # (Auto) 1.07 L [place] # (Auto) 1.30 H Immature Gran # 0.13 H Absolute Neutrophils 8.02 H Carbon Dioxide BUN Creatinine 1.3 H 1.5 H Phosphorus 2.2 L 2.3 L Magnesium 1.3 L GGT 72 H 73 H Lactate Dehydrogenase Total Protein 5.1 L 5.1 L Albumin 2.4 L 2.4 L Albumin/Globulin Ratio 0.9 L 0.9 L 02/22/22 02/22/22 05:50 05:50 WBC 13.9 H RBC 3.68 L Hgb 11.6 L Hct 35.1 L Immature Gran % (Auto) 1.2 H Neut % (Auto) 79.8 H Lymph % (Auto) 5.2 L Lymph # (Auto) 0.73 L [place] # (Auto) 1.63 H Immature Gran # 0.17 H Absolute Neutrophils 11.12 H Carbon Dioxide 20 L BUN 24 H Creatinine 1.9 H Phosphorus Magnesium 1.3 L GGT 82 H Lactate Dehydrogenase 301 H Total Protein 5.8 L Albumin 2.7 L Albumin/Globulin Ratio 0.9 L Meds: Medications Acetaminophen (Acetaminophen 500 Mg Tablet) 500 mg PO Q6HP PRN; Protocol PRN Reason: Per Pain Protocol Last Admin: 02/23/22 00:46 Dose: 500 mg Hydrocodone Bitart/Acetaminophen (Hydrocodone/Apap 5/325mg Tablet) 1 tab PO Q4HP PRN; Protocol PRN Reason: Per Pain Protocol Last Admin: 02/24/22 05:37 Dose: 1 tab Carvedilol ([facility] 6.25 Mg [facility]) [facility] Last Admin: 02/23/22 17:47 Dose: 6.25 mg Docusate Sodium (Docusate Sodium 100 Mg Capsule) 100 mg PO BID [facility] Last Admin: 02/23/22 21:23 Dose: Not Given Heparin Sodium (Porcine) (Heparin 5,000 Unit/Ml Vial) 5,000 unit SQ Q12 [facility] Last Admin: 02/23/22 21:23 Dose: 5,000 unit Metronidazole (Flagyl) 500 mg in 100 mls @ 100 mls/hr IV Q8H [facility]; Protocol Stop: 02/26/22 05:59 Last Admin: 02/24/22 05:21 Dose: 100 mls/hr Ceftriaxone Sodium 2 gm/ (Dextrose) 50 mls @ 100 mls/hr IV Q24H [facility] Stop: 02/26/22 08:59 Last Infusion: 02/23/22 11:17 Dose: Infused Thiamine HCl 100 mg/ Sodium (Chloride) 51 mls @ 50 mls/hr IV DAILY [facility] Stop: 02/26/22 10:02 Potassium Chloride/Dextrose/Sod Cl (Dextrose 5%-1/2ns W/20meq Kcl) 1,000 mls @ 50 mls/hr IV .Q20H [facility] Last Admin: 02/23/22 14:25 Dose: 50 mls/hr Labetalol HCl (Labetalol 5 Mg/Ml Ml) 10 mg IV Q2HP PRN PRN Reason: Hypertension Lactulose (Lactulose 20 Gm/30 Ml Oral.Nancy) 10 gm PO DAILYP PRN PRN Reason: Constipation Loperamide HCl (Loperamide 2 Mg Capsule) 2 mg PO PRN PRN PRN Reason: Diarrhea Last Admin: 02/23/22 11:19 Dose: 2 mg Lorazepam (Lorazepam 2 Mg/Ml Vial) 0 mg IV Q4HP PRN; Protocol PRN Reason: Alcohol Withdrawal/Assess CIWA Last Admin: 02/23/22 23:52 Dose: 2 mg Multivit/Ca Carb/B Cmplx/FA/Prenat (Folic Acid/Vitamin B Comp W-C 1 Tab Tablet) 1 tab PO HS [facility] Last Admin: 02/23/22 21:23 Dose: 1 tab Ondansetron HCl (Ondansetron 4 Mg/2 Ml Vial) 4 mg IV Q4HP PRN; Protocol PRN Reason: Nausea And Vomiting Senna (Sennosides 1 Tablet) 2 tab PO HSP PRN PRN Reason: Constipation Sodium Chloride (0.9 % Sodium Chloride 10 Ml Syringe) 10 ml IV Q8 [facility] Last Admin: 02/24/22 05:22 Dose: 10 ml A/P Narrative A/P Narrative: A: #distal transverse/descending colitis, likely ischemic versus infectious colitis: Resolving #BAMBI on CKD: improved #Alcohol withdrawal (Alcohol use disorder): -IV ativan last night #Generalized weakness #Failure to thrive/malnourishment: #Hypomagnesemia/hypophosphatemia: #Loose stools likely due to recent colitis and possibly antibiotic: #Probably resolved hematochezia likely secondary to colitis: #COPD, stable: #Hypertension: #Anemia, chronic: #Peripheral vascular disease Plan: -stop IV fluid -Ceftriaxone/metronidazole for now -Follow CBC, renal function, electrolytes replace -Monitor urine output -Imodium as needed for diarrhea -Consider GI/general surgery consult for colonoscopy if hematochezia recurs. -CIWA protocol with Ativan as needed -High-dose thiamine IV for now followed by daily thiamine supplementation. -PT and OT consult, nurse monitoring. -Dietary consult -Disposition: Probably SNF. The patient should have an outpatient colonoscopy if not performed recently -ppx: Heparin SQ Time Spent With Patient Time: Total time spent is greater than 50% in coordination of care (as documented) at patient's floor/unit and/or counseling patient: Total time spent with greater than 50% in coordination of care (as documented) at patient's floor/unit and/or counseling patient:: 25 - 35 minutes QUALITY VTE Deep Vein Thrombosis/Pulmonary Embolism Present on Admission: No
[2022-02-24] MEDS: DOCUSATE SODIUM 100 MG CAPSULE PO SCH ×2 (09:39→19:50)
[2022-02-24] MEDS: HEPARIN 5,000 UNIT/ML VIAL SQ SCH ×2 (09:54→20:15)
[2022-02-24] MEDS: cefTRIAXone 2 GM in DEXTROSE 5% IN WATER 50 ML IV SCH (09:54)
[2022-02-24] MEDS: CARVEDILOL 6.25 MG TABLET PO SCH ×2 (09:54→17:18)
[2022-02-24] MEDS ORDERED: LABETALOL 5 MG/ML ML IV PRN (11:17)
[2022-02-24] MEDS: THIAMINE 100 MG in 0.9 % SODIUM CHLORIDE 50 ML IV SCH (11:44)
--- NOTE | 2022-02-24 12:00 | Discharge Summary ---
Discharge Provider Provider IMPORTANT FOLLOW-UP INFORMATION FOR PCP: Patient information: Note initiated : 02/24/22 at 11:59 am Service Date, if different from initiated Date: [] Patient: Isaac Russo 66 y/o M admitted on 02/20/22 for Failure to thrive. Chief Complaint: [] Date of admission: 02/20/22 18:56 Discharge date: 02/26/22 Primary care physician: PCP No Consults: 02/20/22 Consult to Physician [CONS] Stat Comment: Consulting Provider: Oli Florez Reason For Exam: Physician to Consult COURSE Hospital Course Hospital course: Chief Complaint: [] Interval history: Mr. Russo is a 66 year old male with multiple comorbidities including a history of alcohol use disorder, chronic kidney disease, COPD who presented to the emergency department because he was unable to take care of himself at home. The patient is not a good historian and unable to provide more detailed information except that he is he has generally weak and having difficulty ambulating. When specifically asked the patient says that he does have abdominal pain which is been present for some time and also has had some bloody bowel movements. The patient also has what appears to be chronic musculoskeletal pain, specifically in his left hip and right shoulder. Patient also says that he has difficulty urinating and has been told he may need a Pereira catheter at some time. In the emergency department, the patient was tachycardic and intermittently hypotensive. There was no respiratory distress, he was saturating well on room air. EKG showed sinus rhythm. Laboratory workup shows a new leukocytosis of 18,000, increased neutrophils, sodium of 131, creatinine of 2.9 with a BUN of 35. LFTs were normal. Procalcitonin was elevated at 1.12. Noncontrast CT abdomen and pelvis revealed moderate concentric wall thickening of the distal transverse and descending colon with pericolonic edema. This pattern is most consistent with ischemic colitis per radiology report, infectious colitis and inflammatory bowel disease are felt to be a less likely cause of colitis in this case. Hospital medicine was consulted for admission. Upon examination, the patient is disheveled and appears to be malnourished. He does elicit abdominal tenderness however no rebound tenderness or guarding. There is evidence of peripheral arterial disease in bilateral lower extremities, left greater than right. The patient has a broad based when attempting to ambulate. His main concern is that he is unable to take care of himself at home due to generalized weakness. The patient did not mention abdominal pain until I asked him specifically about his abdomen. The patient will be admitted for colitis likely secondary to ischemic colitis, IV fluids, empiric antibiotics, supportive care, PT and OT. The patient will likely require to a alf facility for rehab when he is discharged. The patient was last hospitalized at [facility] in November, for hyponatremia, generalized weakness and falls felt to be related to alcohol. The patient was treated for alcohol withdrawal and eventually discharged to a alf facility for rehab. 02/21 Vital signs stable overnight, the patient was started on the CIWA protocol last night for alcohol withdrawal but symptoms are mild. The patient feels better today, abdominal discomfort improving. Renal function improving. Continue IV antibiotics, decreased IV NS to 75 mls/hr. 02/22 Hypertensive overnight, started Coreg 6.25 mg twice daily as the patient has allergies to multiple classes of antihypertensives. CIWA scores elevated today, receiving Ativan as needed. Staff reported diarrhea and a bloody bowel movement overnight. The patient's abdominal discomfort is about the same as yesterday. Hemoglobin improved from 10.9 to 11.6. Renal function improving. Screening for C. difficile. Low magnesium, replaced. Continue antibiotics, IV fluid. 02/23 Hypertensive overnight, otherwise vitals are stable. Leukocytosis resolved. The patient does have alcohol withdrawal and receiving Ativan as needed. Renal function improving, continuing IV fluid. Patient continues to have loose stools, C. difficile screen was negative. Abdominal discomfort improving, started Imodium as needed. Continuing ceftriaxone and IV metronidazole as the patient is unlikely to tolerate oral antibiotics, plan for 5 days of antibiotic treatment. Patient will likely require a alf facility for rehab. 02/24 Patient required 3 mg of IV Ativan last night. Seems to be moving more clear this morning and doing little bit better. Kidney function improving. Magnesium and phosphorus low. Will be replaced. 02/25 Patient did require some Ativan last night and this morning. Some sinus tach when he did get up and move around but resolved when he got back to bed. Had some diarrhea and is getting as needed Imodium. C. difficile was negative. 02/26 Patient doing well. Did not require any Ativan yesterday. Did get a one-time dose of Librium yesterday. Doing well this morning. Stable for discharge. A: #distal transverse/descending colitis, likely ischemic versus infectious colitis: Resolving #BAMBI on CKD: improved #Alcohol withdrawal (Alcohol use disorder): #Generalized weakness #Failure to thrive/malnourishment: #Hypomagnesemia/hypophosphatemia: #Loose stools likely due to recent colitis and possibly antibiotic: #Probably resolved hematochezia likely secondary to colitis: #COPD, stable: #Hypertension: #Anemia, chronic: #Peripheral vascular disease Plan: -Disposition: Probably SNF. The patient should have an outpatient colonoscopy if not performed recently Discharge diagnosis: Colitis BAMBI alcohol withdrawal generalized weakness failure to thrive elect Secondary discharge diagnosis: Chronic kidney disease COPD hypertension peripheral vascular disease chronic anemia alcohol abuse Time Spent with Patient Time attestation: Total time spent providing and/or coordinating discharge services: Time spent: Greater than 30 minutes EXAM Constitutional Vitals: Temp Pulse Resp BP Pulse Ox O2 Del Method 97.5 F 92 H 16 184/117 97 02/24/22 07:01 02/24/22 07:01 02/24/22 11:01 02/24/22 11:00 02/24/22 07:01 02/24/22 05:45 Discharge Data Data Completed and Pending Labs on day of discharge: Labs from last 24 hours 02/24/22 05:38 Sodium 136 Potassium 3.3 Chloride 103 Carbon Dioxide 22 Anion Gap 11.0 BUN 11 Creatinine 1.3 H GFR Calculation 56 Glucose 102 Uric Acid 5.9 Calcium 8.8 Phosphorus 2.2 L Magnesium 1.3 L Total Bilirubin < 0.2 Direct Bilirubin < 0.2 GGT 72 H AST 16 ALT 12 Alkaline Phosphatase 79 Lactate Dehydrogenase 142 Total Protein 5.1 L Albumin 2.4 L Globulin 2.7 Albumin/Globulin Ratio 0.9 L Triglycerides 72 Preliminary micro results at discharge 02/20/22 19:57 Blood Culture - Preliminary Blood 02/20/22 19:45 Blood Culture - Preliminary Blood Discharge Plan Patient/Caregiver Discharge Instructions Activity: increase activity as tolerated Diet: Regular Diet Activity Restrictions/Additional Instructions: Follow-up with PCP in 3 to 7 days. Referral to GI and 3 to 14 days for colitis, due for colonoscopy. Prescriptions: Continued bupropion HCl 150 mg tablet extended release 24 hr 450 mg PO QAM buspirone 10 mg tablet 20 mg PO TID acetaminophen 500 mg capsule 500 mg PO Q6H PRN (Reason: pain) Qty: 30 0RF bisoprolol fumarate 5 mg tablet 2 tab PO QDAY tamsulosin 0.4 mg Capsule 0.8 mg PO QHS cholecalciferol (vitamin D3) 50 mcg (2,000 unit) Tablet 100 mcg PO DAILY fluticasone propion-salmeterol [Advair Diskus] 500-50 mcg/dose Blister With Device 1 inh INHALATION BID Combivent Respimat 20-100 mcg/actuation mist 1 puff INHALATION Q6 Discontinued acetaminophen 500 mg Tablet 1,000 mg PO TID Qty: 90 0RF sulfamethoxazole-trimethoprim [Bactrim DS] 800-160 mg tablet 1 tab PO BID Qty: 20 0RF Follow Up Plan Follow up with: No,PCP [Primary Care Provider] - Patient Disposition: Xfer SNF Prognosis: Fair Rehab Potential: Fair I certify that the patient requires SNF services: Yes Overall status at discharge: patient is progressing back to baseline Discharge Orders: Discharge Order (Routine); Ordered 02/26/22 [facility] Thrombosis/Pulmonary Embolism Present on Admission: No
--- NOTE | 2022-02-24 13:21 | XRay Report ---
HISTORY: Right shoulder pain after a fall FINDINGS: Humeral head is subluxed superiorly and impinged against the undersurface of the acromion. Similar findings were seen in the left shoulder on the prior x-ray done on 11/11/21. This is indirect evidence of a rotator cuff tear. Acromioclavicular joint is normal in width and alignment. There are small soft tissue calcifications adjacent to the acromion. There are old healed fractures posteriorly in the right seventh and eighth ribs. Patient had prior fusion in the lower cervical spine. IMPRESSION: Subluxation of the humeral head with indirect evidence of a rotator cuff tear. No fracture Interpreted and Authenticated by: Josafat Lopez 02/24/22
[2022-02-24] MEDS: LOPERAMIDE 2 MG CAPSULE PO PRN (14:11)
[2022-02-24] MEDS: buPROPion 150 MG TAB.XL.24H PO SCH (16:19)
[2022-02-24] MEDS: TAMSULOSIN 0.4 MG CAPSULE PO SCH (20:15)
[2022-02-24] MEDS: FOLIC ACID/VITAMIN B COMP W-C 1 TAB TABLET PO SCH (20:15)
[2022-02-24] MEDS: FLUTICASONE/SALMETEROL 500/50 INHALER #14 INH SCH (20:15)
[2022-02-24] MEDS: busPIRone 5 MG TABLET PO SCH (20:15)
[2022-02-24] MEDS ORDERED: TAMSULOSIN 0.4 MG CAPSULE PO SCH (21:00)
[2022-02-24] MEDS: chlordiazePOXIDE 25 MG CAPSULE PO PRN (22:06)
[2022-02-25] MEDS: LORazepam 2 MG/ML VIAL IV PRN ×2 (00:45→07:01)
[2022-02-25] MEDS: HYDROcodone/APAP 5/325MG TABLET PO PRN ×5 (05:02→21:45)
[2022-02-25] MEDS: metroNIDAZOLE 500 MG/100 ML BAG IV SCH ×3 (05:18→21:44)
[2022-02-25] MEDS: LOPERAMIDE 2 MG CAPSULE PO PRN ×2 (05:19→09:02)
[2022-02-25] MEDS: 0.9 % SODIUM CHLORIDE 10 ML SYRINGE IV SCH ×7 (05:35→22:55)
[2022-02-25 06:40] LABS: ALT/SGPT 13 U/L (<40); AST/SGOT 13 U/L (<40); Albumin 2.7 gm/dL (3.2-5.2); Albumin/Globulin Ratio 0.9 (1.0-2.3); Alkaline Phosphatase 98 U/L (39-117); Bilirubin,Direct < 0.2 mg/dL (0-0.3); Bilirubin,Total < 0.2 mg/dL (0.1-1.0); Blood Urea Nitrogen 12 mg/dL (8-23); Calcium 9.5 mg/dL (8.6-10.4); Carbon Dioxide 20 mmol/L (22-30); Chloride 103 mmol/L (96-108); Glomerular Filtration Rate 51; Glucose 95 mg/dL (70-105); Lactate Dehydrogenase 164 U/L (135-225); Phosphorous 3.4 mg/dL (2.5-4.5); Triglycerides 136 mg/dL (<150); Uric Acid 5.8 mg/dL (2.5-8.0)
[2022-02-25 07:00] LABS: Appearance,Urine Clear (Clear); Bilirubin,Urine Negative (Negative); Color,Urine Yellow; Culture Indicated,Urine No; Glucose,Urine (UA) Negative (Negative); Ketones,Urine Negative (Negative); Leukocyte Esterase,Urine Negative /uL (Negative); Nitrate,Urine Negative (Negative); PH,Urine 5.5 (5.0-9.0); Protein,Urine Negative (Negative); Specific Gravity,Urine 1.015 (1.000-1.035); Urine Blood Negative ery/mcL (Negative); Urine RBC < 1 /hpf (0-3); Urine Squamous Epithelial Cell 0 /hpf (0-4); Urine WBC < 1 /hpf (0-4); Urobilinogen,Urine Normal
--- NOTE | 2022-02-25 08:04 | Internal Med Progress Note ---
SUBJECTIVE Subjective Patient information: Note initiated : 02/25/22 at 8:02 am Service Date, if different from initiated Date: [] Patient: Isaac Russo 66 y/o M admitted on 02/20/22 for Failure to thrive. Chief Complaint: [] Interval history: Mr. Russo is a 66 year old male with multiple comorbidities including a history of alcohol use disorder, chronic kidney disease, COPD who presented to the emergency department because he was unable to take care of himself at home. The patient is not a good historian and unable to provide more detailed information except that he is he has generally weak and having difficulty ambulating. When specifically asked the patient says that he does have abdominal pain which is been present for some time and also has had some bloody bowel movements. The patient also has what appears to be chronic musculoskeletal pain, specifically in his left hip and right shoulder. Patient also says that he has difficulty urinating and has been told he may need a Pereira catheter at some time. In the emergency department, the patient was tachycardic and intermittently hypotensive. There was no respiratory distress, he was saturating well on room air. EKG showed sinus rhythm. Laboratory workup shows a new leukocytosis of 18,000, increased neutrophils, sodium of 131, creatinine of 2.9 with a BUN of 35. LFTs were normal. Procalcitonin was elevated at 1.12. Noncontrast CT abdomen and pelvis revealed moderate concentric wall thickening of the distal transverse and descending colon with pericolonic edema. This pattern is most consistent with ischemic colitis per radiology report, infectious colitis and in flammatory bowel disease are felt to be a less likely cause of colitis in this case. Hospital medicine was consulted for admission. Upon examination, the patient is disheveled and appears to be malnourished. He does elicit abdominal tenderness however no rebound tenderness or guarding. There is evidence of peripheral arterial disease in bilateral lower extremities, left greater than right. The patient has a broad based when attempting to ambulate. His main concern is that he is unable to take care of himself at home due to generalized weakness. The patient did not mention abdominal pain until I asked him specifically about his abdomen. The patient will be admitted for colitis likely secondary to ischemic colitis, IV fluids, empiric antibiotics, supportive care, PT and OT. The patient will likely require to a alf facility for rehab when he is discharged. The patient was last hospitalized at [facility] in November, for hyponatremia, generalized weakness and falls felt to be related to alcohol. The patient was treated for alcohol withdrawal and eventually discharged to a alf facility for rehab. 02/21 Vital signs stable overnight, the patient was started on the CIWA protocol last night for alcohol withdrawal but symptoms are mild. The patient feels better today, abdominal discomfort improving. Renal function improving. Continue IV antibiotics, decreased IV NS to 75 mls/hr. 02/22 Hypertensive overnight, started Coreg 6.25 mg twice daily as the patient has allergies to multiple classes of antihypertensives. CIWA scores elevated today, receiving Ativan as needed. Staff reported diarrhea and a bloody bowel movement overnight. The patient's abdominal discomfort is about the same as yesterday. Hemoglobin improved from 10.9 to 11.6. Renal function improving. Screening for C. difficile. Low magnesium, replaced. Continue antibiotics, IV fluid. 02/23 Hypertensive overnight, otherwise vitals are stable. Leukocytosis resolved. The patient does have alcohol withdrawal and receiving Ativan as needed. Renal function improving, continuing IV fluid. Patient continues to have loose stools, C. difficile screen was negative. Abdominal discomfort improving, started Imodium as needed. Continuing ceftriaxone and IV metronidazole as the patient is unlikely to tolerate oral antibiotics, plan for 5 days of antibiotic treatment. Patient will likely require a alf facility for rehab. 02/24 Patient required 3 mg of IV Ativan last night. Seems to be moving more clear this morning and doing little bit better. Kidney function improving. Magnesium and phosphorus low. Will be replaced. 02/25 Patient did require some Ativan last night and this morning. Some sinus tach when he did get up and move around but resolved when he got back to bed. Had some diarrhea and is getting as needed Imodium. C. difficile was negative. Review of Systems: denies headache/fever/chills/nausea/vomiting/chest or abdominal pain/cough/dyspnea. Otherwise see above. Constitutional Vitals: Vital Signs Temp Pulse Resp BP Pulse Ox O2 Del Method 97.9 F 86 11 L 162/100 98 02/25/22 04:00 02/25/22 07:10 02/25/22 07:10 02/25/22 07:10 02/25/22 07:10 02/25/22 07:13 Period Temp Pulse Resp BP Sys/Gan Pulse Ox O2 Del Method O2 Flow Rate Last 24 Hr 97.1 F-98.0 F 78-94 11-22 127-184/77-117 96-100 Room Air-Room Air Intake and Output 02/24/22 02/25/22 02/25/22 21:59 05:59 13:59 Intake Total 899.0909 700 100 Output Total 620 350 Balance 279.0909 350 100 Weight 61.099 kg Intake & Output: Intake & Output 02/24/22 02/25/22 02/25/22 21:59 05:59 13:59 Intake Total 899.0909 700 100 Output Total 620 350 Balance 279.0909 350 100 Weight 61.099 kg Intake: Nourishment/Supplement quantity 240 (ml) IV 659.0909 100 100 Potassium Phosphate 40 Meq In 509.0909 Dextrose 5% in Water 500 ml @ 127.273 mls/hr IV ONCE ONE Rx#: [id number] Rocephin 2 gm In Dextrose 5% in 50 Water 50 ml @ 100 mls/hr IV Q24H [facility] Rx#:[id number] Oral 600 Output: Void Amount 620 100 Urine/Stool Mix 250 Other: Meal Dinner mushroom soup/cheese stick/crackers Percent of Meal Consumed 100% 100% Feeding Ability Independent Assist with Tray Set Up Nourishment/Supplement name ensure Urine Appearance Clear Clear Urine Color Yellow Yellow Urine Odor Normal Normal Stool Size Small Stool Color Brown Stool Consistency Loose Exam: General: Alert, Awake, No acute Distress Eyes/N/T: EOMI, Head/Neck: neck supple, CV: RRR, No murmurs, Pulm: Clear b/l, no wheezing/rhonchi/rales Abd: soft, nontender, +BS x4, Mildly distended Ext: no clubbing/cyanosis/edema , Diffuse muscle atrophy secondary to malnourishment. Neuro: Alert, no focal deficits, moves all extremities, Skin: warm/dry, Bilateral lower extremity skin wounds do not appear infected. OBJ DATA Labs CBC & Chem 7: 02/23/22 06:00 02/25/22 05:29 Labs: Abnormal Lab Results 02/25/22 02/24/22 02/23/22 05:29 05:38 06:00 WBC RBC Hgb Hct Immature Gran % (Auto) Neut % (Auto) Lymph % (Auto) Lymph # (Auto) Nobles # (Auto) Immature Gran # Absolute Neutrophils Carbon Dioxide 20 L Creatinine 1.4 H 1.3 H 1.5 H Phosphorus 2.2 L 2.3 L Magnesium 1.3 L GGT 83 H 72 H 73 H Total Protein 5.7 L 5.1 L 5.1 L Albumin 2.7 L 2.4 L 2.4 L Albumin/Globulin Ratio 0.9 L 0.9 L 0.9 L 02/23/22 02/22/22 06:00 05:50 WBC 13.9 H RBC 3.43 L 3.68 L Hgb 10.6 L 11.6 L Hct 33.2 L 35.1 L Immature Gran % (Auto) 1.2 H 1.2 H Neut % (Auto) 79.8 H Lymph % (Auto) 9.7 L 5.2 L Lymph # (Auto) 1.07 L 0.73 L Nobles # (Auto) 1.30 H 1.63 H Immature Gran # 0.13 H 0.17 H Absolute Neutrophils 8.02 H 11.12 H Carbon Dioxide Creatinine Phosphorus Magnesium GGT Total Protein Albumin Albumin/Globulin Ratio Meds: Medications Acetaminophen (Acetaminophen 500 Mg Tablet) 500 mg PO Q6HP PRN; Protocol PRN Reason: Per Pain Protocol Last Admin: 02/23/22 00:46 Dose: 500 mg Hydrocodone Bitart/Acetaminophen (Hydrocodone/Apap 5/325mg Tablet) 1 tab PO Q4HP PRN; Protocol PRN Reason: Per Pain Protocol Last Admin: 02/25/22 05:02 Dose: 1 tab Bupropion HCl (Bupropion 150 Mg Tab.Xl.24h) 450 mg PO QAM [facility] Last Admin: 02/24/22 16:19 Dose: 450 mg Buspirone HCl (Buspirone 5 Mg Tablet) 20 mg PO TID [facility] Last Admin: 02/24/22 20:15 Dose: 20 mg Carvedilol (Carvedilol 6.25 Mg Tablet) 6.25 mg PO BIDCC [facility] Last Admin: 02/24/22 17:18 Dose: 6.25 mg Chlordiazepoxide HCl (Chlordiazepoxide 25 Mg Capsule) 25 mg PO Q4HP PRN PRN Reason: Alcohol Withdrawal/Assess CIWA Last Admin: 02/24/22 22:06 Dose: 25 mg Docusate Sodium (Docusate Sodium 100 Mg Capsule) 100 mg PO BID [facility] Last Admin: 02/24/22 19:50 Dose: Not Given Heparin Sodium (Porcine) (Heparin 5,000 Unit/Ml Vial) 5,000 unit SQ Q12 [facility] Last Admin: 02/24/22 20:15 Dose: 5,000 unit Metronidazole (Flagyl) 500 mg in 100 mls @ 100 mls/hr IV Q8H [facility]; Protocol Stop: 02/26/22 05:59 Last Infusion: 02/25/22 06:53 Dose: Infused Ceftriaxone Sodium 2 gm/ (Dextrose) 50 mls @ 100 mls/hr IV Q24H [facility] Stop: 02/26/22 08:59 Last Infusion: 02/24/22 15:07 Dose: Infused Thiamine HCl 100 mg/ Sodium (Chloride) 51 mls @ 50 mls/hr IV DAILY [facility] Stop: 02/26/22 10:02 Last Infusion: 02/24/22 12:46 Dose: Infused Labetalol HCl (Labetalol 5 Mg/Ml Ml) 10 mg IV Q2HP PRN PRN Reason: Hypertension Labetalol HCl (Labetalol 5 Mg/Ml Ml) 0 mg IV Q2HP PRN PRN Reason: Hypertension Lactulose (Lactulose 20 Gm/30 Ml Oral.Nancy) 10 gm PO DAILYP PRN PRN Reason: Constipation Loperamide HCl (Loperamide 2 Mg Capsule) 2 mg PO PRN PRN PRN Reason: Diarrhea Last Admin: 02/25/22 05:19 Dose: 2 mg Lorazepam (Lorazepam 2 Mg/Ml Vial) 0 mg IV Q4HP PRN; Protocol PRN Reason: Alcohol Withdrawal/Assess CIWA Last Admin: 02/25/22 07:01 Dose: 1 mg Multivit/Ca Carb/B Cmplx/FA/Prenat (Folic Acid/Vitamin B Comp W-C 1 Tab Tablet) 1 tab PO HS [facility] Last Admin: 02/24/22 20:15 Dose: 1 tab Ondansetron HCl (Ondansetron 4 Mg/2 Ml Vial) 4 mg IV Q4HP PRN; Protocol PRN Reason: Nausea And Vomiting Fluticasone/Salmeterol (Fluticasone/Salmeterol 500/50 Inhaler #14) 1 puff INH BID [facility] Last Admin: 02/24/22 20:15 Dose: Not Given Senna (Sennosides 1 Tablet) 2 tab PO HSP PRN PRN Reason: Constipation Sodium Chloride (0.9 % Sodium Chloride 10 Ml Syringe) 10 ml IV Q8 [facility] Last Admin: 02/25/22 05:35 Dose: 10 ml Tamsulosin HCl (Tamsulosin 0.4 Mg Capsule) 0.8 mg PO HS [facility] Last Admin: 02/24/22 20:15 Dose: 0.8 mg Triamcinolone Acetonide (Triamcinolone Cream 0.1% 15g 1 Dose Tube) 1 dose TOPIC AL BID PRN PRN Reason: pruritis A/P Narrative A/P Narrative: A: #distal transverse/descending colitis, likely ischemic versus infectious colitis: Resolving #BAMBI on CKD III: improved #Alcohol withdrawal (Alcohol use disorder): -IV ativan last night #Generalized weakness #Failure to thrive/malnourishment: #Hypomagnesemia/hypophosphatemia: #Loose stools likely due to recent colitis and possibly antibiotic: #Probably resolved hematochezia likely secondary to colitis: #COPD, stable: #Hypertension: #Anemia, chronic: #Peripheral vascular disease Plan: -Ceftriaxone/metronidazole for now -Follow CBC, renal function, electrolytes replace -Monitor urine output -Imodium as needed for diarrhea -Consider GI/general surgery consult for colonoscopy if hematochezia recurs. -CIWA protocol with Ativan as needed -thiamine -PT and OT consult, surveillance system monitor. -Dietary consult -Disposition: Probably SNF. The patient should have an outpatient colonoscopy if not performed recently -ppx: Heparin SQ Time Spent With Patient Time: Total time spent is greater than 50% in coordination of care (as documented) at patient's floor/unit and/or counseling patient: Total time spent with greater than 50% in coordination of care (as documented) at patient's floor/unit and/or counseling patient:: 25 - 35 minutes QUALITY VTE Deep Vein Thrombosis/Pulmonary Embolism Present on Admission: No
[2022-02-25] MEDS: HEPARIN 5,000 UNIT/ML VIAL SQ SCH ×2 (08:08→20:55)
[2022-02-25] MEDS: cefTRIAXone 2 GM in DEXTROSE 5% IN WATER 50 ML IV SCH (08:08)
[2022-02-25] MEDS: buPROPion 150 MG TAB.XL.24H PO SCH (08:09)
[2022-02-25] MEDS: DOCUSATE SODIUM 100 MG CAPSULE PO SCH ×2 (08:09→20:59)
[2022-02-25] MEDS: CARVEDILOL 6.25 MG TABLET PO SCH ×2 (08:09→17:01)
[2022-02-25] MEDS: busPIRone 5 MG TABLET PO SCH ×3 (08:09→20:56)
[2022-02-25] MEDS: FLUTICASONE/SALMETEROL 500/50 INHALER #14 INH SCH ×2 (08:09→20:59)
[2022-02-25] MEDS: TRIAMCINOLONE CREAM 0.1% 15G 1 DOSE TUBE TOPICAL PRN ×2 (09:02→20:20)
[2022-02-25] MEDS: THIAMINE 100 MG in 0.9 % SODIUM CHLORIDE 50 ML IV SCH (09:02)
[2022-02-25] MEDS: chlordiazePOXIDE 25 MG CAPSULE PO PRN ×2 (09:52→14:03)
[2022-02-25] MEDS: ACETAMINOPHEN 500 MG TABLET PO PRN (18:58)
[2022-02-25] MEDS: FOLIC ACID/VITAMIN B COMP W-C 1 TAB TABLET PO SCH (20:56)
[2022-02-25] MEDS: TAMSULOSIN 0.4 MG CAPSULE PO SCH (20:57)
[2022-02-26] MEDS: HYDROcodone/APAP 5/325MG TABLET PO PRN ×3 (03:12→13:08)
[2022-02-26] MEDS: 0.9 % SODIUM CHLORIDE 10 ML SYRINGE IV SCH ×2 (05:42→14:01)
[2022-02-26] MEDS: FLUTICASONE/SALMETEROL 500/50 INHALER #14 INH SCH (08:08)
[2022-02-26] MEDS: DOCUSATE SODIUM 100 MG CAPSULE PO SCH (08:08)
[2022-02-26] MEDS: buPROPion 150 MG TAB.XL.24H PO SCH (08:21)
[2022-02-26] MEDS: CARVEDILOL 6.25 MG TABLET PO SCH (08:21)
[2022-02-26] MEDS: busPIRone 5 MG TABLET PO SCH ×2 (08:21→14:01)
[2022-02-26] MEDS: HEPARIN 5,000 UNIT/ML VIAL SQ SCH (08:22)
[2022-02-26] MEDS: LOPERAMIDE 2 MG CAPSULE PO PRN ×2 (08:28→13:07)
[2022-02-26] MEDS ORDERED: THIAMINE 100 MG TABLET PO SCH (09:00)
[2022-02-26] MEDS ORDERED: CARVEDILOL 6.25 MG TABLET PO SCH (09:15)
== END 2022-02-26 14:36 | DRG 392 ==
LOC: ED 12:12 → ICU 18:56
PROVIDERS: ADMIT Internal Medicine; ATTEND Internal Medicine